=== PATIENT | male | born 1935 | race Caucasian/White ===

== ENCOUNTER 2016-12-25 09:45 | Inpatient (IN) | payer MEDICARE ==
[~2016-12-25] VITALS: Ht 175.3 cm; Wt 91.0 kg
[2016-12-25] MEDS ORDERED: PRAV80TA2 PO (10:52)
[2016-12-25] MEDS ORDERED: ACET-703 PO (10:52)
[2016-12-25] MEDS ORDERED: LEVO125T4 PO (10:52)
[2016-12-25] MEDS ORDERED: POTA-243 PO (10:52)
[2016-12-25] MEDS ORDERED: FLUT50SP EACH NARE (10:52)
[2016-12-25] MEDS ORDERED: CLON0.5T PO (10:52)
[2016-12-25] MEDS ORDERED: ISOS60TA PO (10:52)
[2016-12-25] MEDS ORDERED: XARE20TA PO (10:52)
[2016-12-25] MEDS ORDERED: CARV3.12 PO (10:52)
[2016-12-25] MEDS ORDERED: SERT-132 PO (10:52)
[2016-12-25] MEDS ORDERED: FURO1TAB62 PO (10:52)
--- NOTE | 2017-01-07 07:28 | MH ---
cc: BRIEN QUINTEROS DATE OF ADMISSION: 01/07/2017 ADMISSION DIAGNOSIS Lumbar spinal stenosis with instability. HISTORY This is an 81-year-old male with significant back, hip and leg pain. Investigative studies show evidence of lumbar spinal stenosis at L3-4 and L4-5. The patient has diskogenic back pain as well. There is evidence of a extruded disc at the L3-4 level. This patient is almost unable to get out of bed due to severe back and leg pain with weakness. His indicates he is in bed for 18- 20 hours per day. Despite conservative care the patient is painful and symptomatic. The patient had extensive conservative care that goes back over a year. He now presents for surgical treatment. PAST MEDICAL HISTORY, SOCIAL HISTORY, FAMILY HISTORY, REVIEW OF SYSTEMS See attached notes. PHYSICAL EXAMINATION GENERAL: An 81-year-old male in moderate distress with his back, hip and legs. HEENT: Normocephalic, atraumatic. Pupils equal, round, reactive to light and accommodation. Extraocular motions intact. NECK: Supple. CHEST: Clear. HEART: Regular rate and rhythm. ABDOMEN: Soft, nontender with normoactive bowel sounds. MUSCULOSKELETAL EXAMINATION: Thoracolumbar spine - restricted motion, pain with motion. Moderate spasm. Pelvis is level. Lower extremity straight leg raising is positive on the left, mildly positive on the right. Motor examination shows weakness to the left anterior tibialis and extensor hallucis longus. IMPRESSION 1. Lumbar spinal stenosis L3-4 and L4-5. 2. Herniated disc L3-4, extruded 3. Diskogenic low back pain. 4. Lumbar instability. 5. Left greater than right lumbosacral radiculopathy. PLAN Lumbar laminectomy bilateral, from the left L3-4 and L4-5, lateral recess decompression, subtotal facet resection, posterior spinal fusion L3-4 with posterolateral interbody fusion L3-4 and instrumentation L3-4. CONSENT There are risks with surgery including infection, bleeding, loss of motion, continued pain, need for further surgery, neurologic and vascular injury. The patient understands these issues and wishes to press on with surgery as outlined above. MD PRATIK Santa/SYDNIE /10:47 PM /7:20 AM MTDLeo
[2017-01-07] MEDS ORDERED: SODIUM CHLOR 0.9% 250 ML INJ 250 ML ONE (08:01)
[2017-01-07] MEDS ORDERED: VANCOMYCIN HCL 1000 MG VIAL ONE (08:01)
[2017-01-07 08:08] VITALS: BP 119/87; PULSE 84; RESP 20; TEMP 97.6; O2SAT 94
[2017-01-07] MEDS ORDERED: INSULIN HUMAN REGULAR 1,000 UNITS/10 ML VIAL SQ PRN (08:30)
[2017-01-07] MEDS ORDERED: POVIDONE IODINE 7.5% SCRUB 118 ML BOTTLE TOP SCH (08:30)
[2017-01-07] MEDS ORDERED: METOPROLOL TARTRATE 25 MG TAB PO PRN (08:30)
[2017-01-07] MEDS ORDERED: ceFAZolin 2 GM PREMIX 50 ML IV SCH (08:30)
[2017-01-07] MEDS ORDERED: LACTATED RINGER'S 1000 ML IV SCH (08:30)
[2017-01-07] MEDS ORDERED: SODIUM CHLORID 0.9% 500 ML IV SCH (08:30)
[2017-01-07] MEDS ORDERED: VANCOMYCIN 1000 MG/NS 250 ML (for <70 kg) IV SCH ×2 (08:30)
[2017-01-07] MEDS ORDERED: GENTAMICIN SULFATE 80 MG/2 ML VIAL ONE (08:41)
[2017-01-07 08:57] LABS: INTERNATIONAL NORMALIZED RATIO 1.1 RATIO; PROTHROMBIN TIME - PATIENT 12.1 SEC (9.8-11.6)
[2017-01-07] MEDS ORDERED: GELFOAM SIZE 100 ONE (08:59)
[2017-01-07] MEDS ORDERED: BUPIVACAINE/EPINEPHRINE 0.25% PF 30 ML VIAL ONE (08:59)
[2017-01-07] MEDS ORDERED: HYDROmorphone HCL PF 2 MG/ML VIAL ONE (10:44)
[2017-01-07] MEDS ORDERED: ACETAMINOPHEN 1000 MG/100 ML VIAL IV ONE (10:45)
[2017-01-07] MEDS ORDERED: ePHEDrine/NS 25 MG/5 ML SYR IV ONE (11:50)
[2017-01-07] MEDS ORDERED: LACTATED RINGER'S 1000 ML INJ 1,000 ML IV ONE (11:50)
[2017-01-07] MEDS ORDERED: ONDANSETRON HCL 4 MG/2 ML VIAL IV PUSH ONE (11:50)
[2017-01-07] MEDS ORDERED: PHENYLEPH/NS 1000 MCG/10 ML SYR IV ONE (11:50)
[2017-01-07] MEDS ORDERED: NEOSTIGMINE 3 MG/3 ML SYR IV ONE (11:50)
[2017-01-07] MEDS ORDERED: NEOSTIGMINE METHYLSULFATE 10 MG/10 ML VIAL IV PUSH ONE (11:50)
[2017-01-07] MEDS ORDERED: NORMOSOL R INJ 1,000 ML IV ONE (11:50)
[2017-01-07] MEDS ORDERED: PROPOFOL 200 MG/20 ML AMP IV ONE (11:50)
[2017-01-07] MEDS ORDERED: MISC-163 (12:41)
[2017-01-07] MEDS ORDERED: WALKER WHEELS/F1 MIS (12:43)
[2017-01-07] MEDS ORDERED: LACTATED RINGER'S 1000 ML INJ 1,000 ML IV SCH (13:41)
[2017-01-07] MEDS ORDERED: MORPHINE SULFATE 30 MG/30 ML PCA IV SCH (13:45)
[2017-01-07] MEDS ORDERED: FLUTICASONE PROPIONATE 50 MCG/ACT 16 GM NASAL SPRAY EACH NARE PRN (13:45)
[2017-01-07] MEDS ORDERED: ONDANSETRON HCL 4 MG/2 ML VIAL IV PRN (13:45)
[2017-01-07] MEDS ORDERED: SOD PHOSPHATE/SOD BIPHOSPHATE (ADULT) ENEMA 133ML PR PRN (13:45)
[2017-01-07] MEDS ORDERED: NALOXONE HCL 0.4 MG/ML AMP IV PRN (13:45)
[2017-01-07] MEDS ORDERED: ALUMINUM/MAGNESIUM/SIMETH 30 ML CUP PO PRN (13:45)
[2017-01-07] MEDS ORDERED: ACETAMINOPHEN/HYDROcodone 325 MG/7.5 MG TAB PO PRN (13:45)
[2017-01-07] MEDS ORDERED: MORPHINE SULFATE 8 MG/ML INJ IV PUSH PRN (13:45)
[2017-01-07] MEDS ORDERED: SODIUM CHLORIDE 0.9% FLUSH 5 ML FLUSH IVF PRN (13:45)
[2017-01-07] MEDS ORDERED: BISACODYL 10 MG SUPP PR PRN (13:45)
[2017-01-07] MEDS ORDERED: Post-op Orders (for Pharmacy) MISC XX ONE (13:45)
[2017-01-07] MEDS ORDERED: XARE10TA PO (13:47)
[2017-01-07] MEDS ORDERED: HYDR-3288 PO (13:47)
[2017-01-07] MEDS ORDERED: PCA - TOTAL MG MORPHINE DELIVERED PER SHIFT SCH (14:00)
[2017-01-07] MEDS ORDERED: MORPHINE SULFATE 30 MG/30 ML PCA ONE (14:14)
[2017-01-07 14:21] VITALS: O2SAT 95
[2017-01-07] MEDS ORDERED: fentaNYL CITRATE 250 MCG/5 ML AMP ONE (14:30)
--- NOTE | 2017-01-07 14:56 | RADRPT ---
EXAM DATE/TIME: 01/07/2017 11:17 [facility] COMPARISON: No previous studies available for comparison. INDICATIONS : L3-4 fusion, L4-5 laminectomy. MEDICAL HISTORY : None. SURGICAL HISTORY : None. ENCOUNTER: Initial ACUITY: 1 day PAIN SCORE: 10/10 LOCATION: Lumbar spine. CONCLUSION: Lateral fluoroscopic images during placement of plate and screws with intervertebral disc device at w hat appears to be L3-4. Luis Vicente MD on January 07, 2017 at 14:53 Board Certified Radiologist. This report was verified electronically.
[2017-01-07] MEDS ORDERED: *ONDANSETRON 4 MG VIAL PERIprocedural Use ONLY ONE (19:05)
[2017-01-07] MEDS ORDERED: *LABETALOL HCL 100 MG/20 ML VIAL PERIprocedural Use ONLY ONE (19:09)
[2017-01-07] MEDS ORDERED: METOPROLOL TARTRATE 5 MG/5 ML VIAL ONE (19:18)
[2017-01-07] MEDS ORDERED: NITROGLYCERIN 0.4 MG SL 25 TABS/BTL SL ONE (19:35)
[2017-01-07 20:00] VITALS: O2SAT 91
[2017-01-07] MEDS ORDERED: NITROGLYCERIN 0.4 MG SL 25 TABS/BTL SL PRN (20:45)
[2017-01-07] MEDS ORDERED: ZOLPIDEM TARTRATE 5 MG TAB PO PRN (21:00)
[2017-01-07] MEDS ORDERED: FUROSEMIDE 20 MG TAB PO SCH (21:00)
--- NOTE | 2017-01-07 21:02 | RADRPT ---
EXAM DATE/TIME: 01/07/2017 20:39 [facility] COMPARISON: No previous studies available for comparison. INDICATIONS : Post OP. MEDICAL HISTORY : None. SURGICAL HISTORY : Pacemaker. ENCOUNTER: Subsequent ACUITY: 1 day PAIN SCORE: 0/10 LOCATION: Bilateral chest FINDINGS: No pneumothorax seen. Patient has a left subclavian transvenous cardiac pacer with 2 leads, one in th e right atrium and one at the right ventricular apex. There is mild cardiomegaly and mild, diffuse basilar interstitial prominence of the lungs. No dense o r confluent consolidation. No pleural effusion or pneumothorax. Patient has had previous median sternotomy. CONCLUSION: Mild failure. Cardiac pacer as above. No pneumothorax or other acute complication demonstrated. Aldo Campuzano MD on January 07, 2017 at 20:59 Board Certified Radiologist. This report was verified electronically.
[2017-01-07] MEDS ORDERED: FUROSEMIDE 20 MG/2 ML VIAL ONE (21:52)
--- NOTE | 2017-01-07 21:54 | PD.CONS ---
HPI Service [facility] Consult Requested By Dr Salcido Reason for Consult Chest pain Primary Care Physician Aldo Rincon MD Diagnoses: History of Present Illness History from patient, patient's nurse at the bedside, and review of medical records. I also did speak to Dr. Salcido of orthopedics on this patient as this was a stat consult. Medical team was consulted on this patient because patient was complaining of chest pain postoperatively. Patient underwent bilateral laminectomy from L3-L4, left laminectomy L4-L5, lateral recess decompression, subtotal facets resection, posterior spinal fusion L3-L4, PLIF L3-L4, posterior segmental spinal instrumentation L3-L4 today for a 2016. Postoperatively around 7 PM, patient stated that he had his dinner. He stated after the dinner, he just was not feeling well and started having nausea. This was then followed by chest pain which he described as achy, dull, midsternal with radiation to his back. Was also having associated nausea. Also reports of shortness of breath during that time. His heart rate was also tachycardic around 130s. Because of his complaints, patient was given nitroglycerin in PACU. He reports his pain level decreased from a 4-2 at that time. Patient reports that these achiness is very similar to the symptoms that he had when he had previous heart issues. Upon further questioning, patient actually stated that he has been having these chest tightness for the past few days to a week. He states that he was also having shortness of breath with minimal exertion. He denies any melena/hematochezia/hematemesis/hematuria. Denies fever. Denies burning when he urinates or pain on urination. Denies diarrhea. Denies any recent syncope or falls or dizziness. Of note is that patient received about 2500 cc of fluids in the OR and also postoperative combined. He lost about 300 cc of blood in the OR. Patient reported a prior history of CADstatus post CABG in 2009. He stated that he has had coronary artery stents a total of 15 stents between 2009 to now. His last stent was placed around April 2015 or 2015. He also reports of history of CHF. He does not remember his EF. However he does not have AICD on review of his chest x-ray. He does have a pacemaker. Reports of history of atrial fibrillation. Review of Systems Except as stated in HPI: all other systems reviewed are Neg Past Family Social History Allergies: Coded Allergies: Sulfa (Verified Allergy, Unknown, 01/07/17) Past Medical History Hypertension CADstatus post CABG 2010quadruple. Had cardiac stents a total of 15 stents between 2009 to now. Last stent was placed around April 2016 15 or 2016. CHF Hyperlipidemia Atrial fibrillation Chronic anticoagulation on Xarelto Left carotid artery stenosisstatus post left CEA COPDon home nocturnal oxygen History of renal cyst versus massreports that he was supposed to have surgery for this but later was called by his surgeon that he no longer requires surgery for the treatment. This was about 3 years ago. Hypothyroidism Prostate cancerstatus post radiation seed placement Osteoarthritis Past Surgical History CABG Coronary angiogram and stenting Cataract surgery Prostate radiation seed placement Left carotid artery stenosisstatus post left CEA Laminectomy today Reported Medications Patient's medications as listed in EMRreviewed Family History Reports his sister from some kind of cancer at the age of 5656 years old. His brother September 2016. But did have multiple medical issues and he is not sure which one caused . Social History Used to smoke cigarettes heavily. Stated he quit 4 years ago. States he drinks about 2 glasses of wine a day. Denies any drug abuse. Lives with his . Still driving. Physical Exam Vital Signs Vital Signs Date Time Temp Pulse Resp B/P Pulse Ox O2 Delivery O2 Flow Rate FiO2 01/07/17 20:15 114 22 121/89 91 Nasal Cannula 4 01/07/17 20:00 111 22 122/89 91 Nasal Cannula 4 01/07/17 19:45 109 22 131/84 91 Nasal Cannula 4 01/07/17 19:30 109 22 118/84 91 Nasal Cannula 4 01/07/17 19:15 98.1 110 22 126/89 92 Nasal Cannula 4 01/07/17 19:00 110 22 154/100 95 Nasal Cannula 4 01/07/17 18:30 100 22 140/102 95 Nasal Cannula 4 01/07/17 17:30 92 22 141/96 95 Nasal Cannula 4 01/07/17 16:30 92 22 135/82 95 Nasal Cannula 4 01/07/17 16:15 92 22 148/86 95 Nasal Cannula 4 01/07/17 16:00 92 22 136/85 91 Nasal Cannula 4 01/07/17 15:45 92 22 124/75 93 Nasal Cannula 4 01/07/17 15:30 94 22 145/82 94 Nasal Cannula 4 01/07/17 15:15 94 22 152/83 94 Nasal Cannula 4 01/07/17 15:00 96 22 135/89 96 Nasal Cannula 4 01/07/17 14:52 20 01/07/17 14:45 93 22 148/70 95 Nasal Cannula 4 01/07/17 14:30 87 22 158/94 96 Nasal Cannula 4 01/07/17 14:21 98.5 66 22 149/99 95 Simple Mask 6 01/07/17 08:08 97.6 84 20 119/87 94 Physical Exam GENERAL: This is a well-nourished, well-developed patient, in no apparent distress. SKIN: No rashes, ecchymoses or lesions. Cool and dry. HEAD: Atraumatic. Normocephalic. No temporal or scalp tenderness. EYES: No scleral icterus. No injection or drainage. ENT: Airway patent. Dry oral mucosa. Left CEA scar NECK: Trachea midline. No JVD CARDIOVASCULAR: Regular rate and rhythm without murmurs, gallops, or rubs. RESPIRATORY: Bilateral rales up to mid lungs. Extremities: No calf asymmetry, No calf tenderness. NEUROLOGICAL: Awake and alert. Motor and sensory grossly within normal limits . Somewhat limited exam since patient is not able to move too much postop.. Normal speech. Laboratory Laboratory Tests Test 01/07/17 01/07/17 01/07/17 01/07/17 07:58 08:40 11:54 12:05 Blood Type O POSITIVE O POSITIVE Antibody Screen NEGATIVE Blood Bank Comment Prothrombin Time 12.1 Prothromb Time International 1.1 Ratio Crossmatch Leukocyte-Reduced Red Blood Cells Imaging rad Last 48 hours Impressions Lumbar Spine X-Ray 01/07/17 0000 Signed Impressions: Service Date/Time: Saturday, January 07, 2017 11:17 - CONCLUSION: Lateral fluoroscopic images during placement of plate and screws with intervertebral disc device at what appears to be L3-4. Luis Vicente MD Chest X-Ray 01/07/17 0000 Signed Impressions: Service Date/Time: Saturday, January 07, 2017 20:39 - CONCLUSION: Mild failure. Cardiac pacer as above. No pneumothorax or other acute complication demonstrated. Aldo Campuzano MD Assessment and Plan Problem List: (1) Fluid overload ICD Code: E87.70 Status: Acute (2) Chest pain ICD Code: R07.9 Status: Acute (3) Tachycardia ICD Code: R00.0 Status: Acute Assessment and Plan Impression: Fluid overloadacute on chronic heart failure Chest painwill rule out ACS. Most likely this is secondary to fluid overload. However patient is stating that he did have these chest pains and shortness of breath about a week even prior to his surgery. This would need to rule out new coronary lesions. Tachycardiacurrent heart rate is around 116 in A. fib patient. Multiple etiologies including dyspnea/fluid overload/postop pain. No fever or obvious blood loss. He lost about 300 cc of blood in the OR. Will need to trend hemoglobin hematocrit. Xarelto was stopped about 6 days ago. Hypertension CADstatus post CABG 2009quadruple. Had cardiac stents a total of 15 stents between 2009 to now. Last stent was placed around April 2016 15 or 2016. CHF Hyperlipidemia Atrial fibrillation Chronic anticoagulation on Xarelto Left carotid artery stenosisstatus post left CEA COPDon home nocturnal oxygen History of renal cyst versus massreports that he was supposed to have surgery for this but later was called by his surgeon that he no longer requires surgery for the treatment. This was about 3 years ago. Hypothyroidism Prostate cancerstatus post radiation seed placement Osteoarthritis Plan: Stat chest x-ray was ordered by me. Personally reviewed. Does show bilateral pulmonary edema. Stop IV fluids. Lasix 40 mg IV 1 dose now. Continue Lasix at 40 mg IV every 12 hoursfor the next 24 hours or so. We'll need to switch this based on clinical response. Serial cardiac enzymes and EKGs. Echocardiogram in a.m. Hemoglobin hematocrit CBC now. BMP now. May need potassium supplements with diuresis. Patient reports he takes potassium at home. Will consider transfusing blood if patient's hemoglobin is less than 10 as he is having active chest pain, in a patient with significant coronary artery disease and CABG. Patient's home medications have been resumed by primary orthopedics team. This was reviewed. For now I would continue as ordered. Will adjust based on his vitals if needed. DVT prophylaxiswith SCD. To resume Xarelto postoperatively at the discretion of orthopedics team. Discussed Condition With Patient, covering orthopedic surgeon, patient's nurse in PACU Jonathan Redding MD Jan 07, 2017 21:54
[2017-01-07] MEDS ORDERED: FUROSEMIDE 40 MG/4 ML VIAL IV PUSH ONE (22:00)
[2017-01-08] VITALS (12 sets, daily range): BP systolic 101–117; BP diastolic 60–79; PULSE 84–93; RESP 15–24; TEMP 98.1–98.8; O2SAT 90–98
[2017-01-08 00:24] LABS: BICARBONATE 23.5 MEQ/L (21.0-32.0); POTASSIUM 4.9 MEQ/L (3.5-5.1)
[2017-01-08 04:19] LABS: AUTOMATED NEUTROPHIL # 10.2 TH/MM3 (1.8-7.7); BASOPHIL % 0.1 % (0.0-2.0); HEMATOCRIT 36.9 % (39.0-51.0); HEMO FLAGS DIFF FINAL; LYMPH % 2.8 % (9.0-44.0); LYMPHOCYTE # 0.3 TH/MM3 (1.0-4.8); MEAN CELL VOLUME 93.4 FL (80.0-100.0); MEAN CORPUSCULAR HEMOGLOBIN 30.3 PG (27.0-34.0); MEAN CORPUSCULAR HGB CONC 32.5 % (32.0-36.0); MONO % 10.9 % (0.0-8.0); NEUT % 86.2 % (16.0-70.0); PLATELET COUNT 180 TH/MM3 (150-450); RED BLOOD COUNT 3.95 MIL/MM3 (4.50-5.90); RED CELL DISTRIBUTION WIDTH 14.7 % (11.6-17.2); WHITE BLOOD COUNT 11.8 TH/MM3 (4.0-11.0)
[2017-01-08 05:06] LABS: CKMB 41.5 NG/ML (0.5-3.6)
[2017-01-08] MEDS ORDERED: HEPARIN-D5W INJ 250 ML IV SCH (05:30)
[2017-01-08 06:13] LABS: REVIEW FLAG FINAL
--- NOTE | 2017-01-08 07:34 | MP ---
cc: BRIEN QUINTEROS DATE OF SURGERY: 01/07/2017 PREOPERATIVE DIAGNOSIS 1. Herniated nucleus pulposus, L3-4, central, left, sequestered. 2. Lumbar spinal stenosis L3-4 and L4-5. 3. Lumbar instability L3-4. 4. Discogenic low back pain. 5. Left greater than right lumbosacral radiculopathy. POSTOPERATIVE DIAGNOSIS 1. Herniated nucleus pulposus, L3-4, central, left, sequestered. 2. Lumbar spinal stenosis L3-4 and L4-5. 3. Lumbar instability L3-4. 4. Discogenic low back pain. 5. Left greater than right lumbosacral radiculopathy. PROCEDURE 1. Partial bilateral lumbar laminectomy from the left L4, L5, lateral recess decompression, resection herniated nucleus pulposus, subtotal facet resection L3-4. 2. Lumbar laminectomy from the left L4, L5 with lateral recess decompression. 3. Posterior spinal fusion L3-4. 4. Posterolateral interbody fusion L3-4. 5. Placement of interbody cage L3-4 from the left. 6. Posterior spinal segmental instrumentation. 7. Bone grafting of the lumbar spine. SURGEON Brien Quinteros [employer] INSPECTOR [employer] REPAIRER Audra Gomez PA-C ANESTHESIA General. ESTIMATED BLOOD LOSS 300 cc. INDICATION This patient is an 81-year-old male who is debilitated. He can barely get out of bed and is spending 18+ hours a day in bed because of severe back pain, radiating leg pain and weakness. He has been treated conservatively for discogenic low back for a long time. The patient has had progressive weakness into his legs. Despite extensive conservative care for over six months he has failed and now presents for surgical treatment. DETAILS OF PROCEDURE The patient was brought to the operating room and anesthetized in the supine position. He was rolled to a prone position on a Shiva frame on the Chace table. All pressure points were protected and the back was scrubbed with alcohol followed by Hibiclens followed by ChloraPrep and draped sterilely. Antibiotics were given within a one hour time window and a timeout was done. A left paramedian incision was made. We started first at the L4-5 level. An off midline fascial incision was made. A series of dilating probes were placed down to the interlaminar space at that level. Hemostasis was controlled with bipolar cautery. A high-speed bur was used to remove the lamina starting from left of midline extending across midline. A high-grade stenosis was found. The ligament was taken up and the lateral recess was taken up removing approximately 30% of the medial aspect of the facette joint involving the superior articular facet of L5 and the intrarticular facet of L4. Crossing the L5 nerve root was completely decompressed. A blunt probe could be placed along that region. There was no complication and no leak of cerebrospinal fluid. The wound was irrigated copiously. The fascia was closed with interrupted #1 Vicryl suture. A separate fascial incision was made over the L3-4 level. An extended exposure was accomplished allowing access to that region. We extended across midline and a bilateral laminectomy from the left was accomplished. We found a high-grade stenosis and a large sequestered disc herniation below the disc space. There was a disruption of the annulus from its attachment to L4 and multiple large fragments of disc that were seen below the disc space creating almost a cauda equina syndrome and significant depression, especially the crossing left L4 and even the left L5 nerve root. This was resected and completely freed up. This level was very unstable. A subtotal facet resection was accomplished allowing exposure and decompression also at the exiting L3 nerve root. Because of decompression of that nerve in the foramen, this level became even more unstable so a fusion was felt to be medically necessary. A total discectomy was accomplished. On the back table a combination of autogenous bone graft was mixed with demineralized bone matrix and stem cells. They were injected into the disc space at the L3-4 level. Room was then made for the cage at that level and a StaXx taper 25 mm cage was impacted and elevated to 10 mm. Overall fill was excellent. The back side was filled with additional bone graft. The retractor was reversed. We were able to gain access over the facet joints. Percutaneously we then gained entrance in the pedicle of L3 and L4 on that side. A guidewire was placed down at both pedicles. This was enlarged and proper length cannulated screws with extended tabs were utilized. These were advanced across the wire. Each screw was checked with electric current and there were no abnormal potentials in either lower extremity. Bone graft was placed into the lateral gutters along the transverse process from L3-L4 followed by placement of a 35 mm contoured ronald and then tightened according to the radiologic tech's recommendation. The wound was irrigated copiously. The fascia was closed with interrupted #1 Vicryl suture, subcutaneous tissue with 2-0 Vicryl suture and skin with running intradermal 3-0 Vicryl followed by Benzoin and Steri-Strips. Attention was directed to the right side. Two percutaneous screws were placed on the right side using a sequence of an incision, a bur down to the pedicle followed by placement of an awl and a proper sized wire. This was tapped and then 50 mm screws were advanced across the wire and into proper position percutaneously. A percutaneous ronald was used to attach the device. These were then tightened according to the radiologic tech's recommendation. The wound was irrigated copiously. The subcutaneous tissue was approximated with 2-0 Vicryl suture, skin with running intradermal 3-0 Vicryl followed by Benzoin and Steri-Strips. The sponge counts, needle counts and instrument counts were all correct. The patient tolerated the procedure well and was taken to the recovery room in satisfactory condition. MD PRATIK Santa/JASKARAN /7:22 PM /7:06 AM PINKY
--- NOTE | 2017-01-08 07:54 | PD.ORT.PN ---
Subjective Subjective Remarks Episode of chest pain following surgery so pt was placed on telemetry with medical and cardiology consult. Apparently had elevated troponin levels this am but pt has a strong cardiac and pulmonary history. Chest pain is a '2 maybe 3' this morning. Back pain is 'still painful but I knew that was coming'. He denies any new radiating leg pain, abd pain, new fever or signfiicant shortness of breath. Objective Vitals Vital Signs Date Time Temp Pulse Resp B/P Pulse Ox O2 Delivery O2 Flow Rate FiO2 01/08/17 06:00 86 01/08/17 06:00 98.1 86 19 109/79 94 01/08/17 04:00 84 01/08/17 04:00 98.1 84 15 101/60 93 01/08/17 02:00 86 01/08/17 02:00 98.1 86 16 106/60 94 01/08/17 00:00 98.1 90 17 114/ 98 01/07/17 22:39 98.1 114 22 124/90 96 Nasal Cannula 4 01/07/17 22:30 114 22 124/90 96 Nasal Cannula 4 01/07/17 21:30 114 22 126/90 96 Nasal Cannula 4 01/07/17 20:30 112 22 120/86 91 Nasal Cannula 4 01/07/17 20:15 114 22 121/89 91 Nasal Cannula 4 01/07/17 20:00 111 22 122/89 91 Nasal Cannula 4 01/07/17 19:45 109 22 131/84 91 Nasal Cannula 4 01/07/17 19:30 109 22 118/84 91 Nasal Cannula 4 01/07/17 19:15 98.1 110 22 126/89 92 Nasal Cannula 4 01/07/17 19:00 110 22 154/100 95 Nasal Cannula 4 01/07/17 18:30 100 22 140/102 95 Nasal Cannula 4 01/07/17 17:30 92 22 141/96 95 Nasal Cannula 4 01/07/17 16:30 92 22 135/82 95 Nasal Cannula 4 01/07/17 16:15 92 22 148/86 95 Nasal Cannula 4 01/07/17 16:00 92 22 136/85 91 Nasal Cannula 4 01/07/17 15:45 92 22 124/75 93 Nasal Cannula 4 01/07/17 15:30 94 22 145/82 94 Nasal Cannula 4 01/07/17 15:15 94 22 152/83 94 Nasal Cannula 4 01/07/17 15:00 96 22 135/89 96 Nasal Cannula 4 01/07/17 14:52 20 01/07/17 14:45 93 22 148/70 95 Nasal Cannula 4 01/07/17 14:30 87 22 158/94 96 Nasal Cannula 4 01/07/17 14:21 98.5 66 22 149/99 95 Simple Mask 6 01/07/17 08:08 97.6 84 20 119/87 94 I/O 01/07/17 01/07/17 01/07/17 01/08/17 01/08/17 01/08/17 07:00 15:00 23:00 07:00 15:00 23:00 Intake Total 2200 ml 1378 ml 703 ml Output Total 550 ml 395 ml 900 ml Balance 1650 ml 983 ml -197 ml Intake Oral 500 ml IV Total 1018 ml 203 ml Other 2200 ml 360 ml Output Urine Total 250 ml 395 ml 900 ml Estimated Blood Loss 300 ml Result Diagram: 01/08/17 0557 01/07/172124 Other Results Laboratory Tests Test 01/07/17 08:40 Prothrombin Time 12.1 SEC (9.8-11.6) Prothromb Time International 1.1 RATIO Ratio Objective Remarks Sitting up in bed, RN at bedside NAD VSS L/S Dressing c/d/i, mild drainage, mild warmth, no erythema +motor at and ehl 5/5, +sens, +nvi calves supple, neg homans Assessment & Plan Ortho Post Op Day #: 1 Problem List: Assessment and Plan pod#1 s/p Lami L34, L45, PSF L34 D/C [employer] - causing itching. Change to po pain meds. D/C borja cath this morning. Begin dry dressing changes pod#2 then daily. PT - WBAT w walker. Out of bed w lumbar brace. Medical is considering anticoagulation with heparin due to elevation in troponin. I would very much like to avoid significant anticoagulation for 36- 48 hours postop to avoid significant bleeding at surgical site that has high risk for causing closed space compression and nerve injury. Medical / Cardiology monitoring. D/C planning TBD based on medical stability. Likely friday or friday if stable. DME written. Milka Vora Jan 08, 2017 07:54
[2017-01-08] MEDS: ACETAMINOPHEN/HYDROcodone 325 MG/7.5 MG TAB PO PRN (08:39)
[2017-01-08] MEDS: POTASSIUM CL 40 MEQ/30 ML LIQ UDC PO SCH ×2 (08:39→21:11)
[2017-01-08] MEDS: MAGNESIUM HYDROXIDE SUSP 30 ML CUP PO SCH ×2 (08:40→21:00)
[2017-01-08] MEDS: CARVEDILOL 3.125 MG TAB PO SCH ×2 (08:40→21:13)
--- NOTE | 2017-01-08 08:45 | PD.CONS ---
HPI Service CV Consult Requested By Reason for Consult NSTEMI Primary Care Physician Aldo Rincon MD History of Present Illness Here with CAD s/p CABG 4 vessels 2010 multiple stents after that lastly in 2015 , h/o CHF, hyperlipidemia, a-fib, and PPM for chest pain. Yesterday he underwent lumbar laminectomy. Then he developed retrosternal chest pain and troponin went to 6. He continues to have retrosternal chest pain and the surgeon does not want any anticoagulants give at least until tomorrow. He also c /o shortness of breath, but denies palpitations (Jorge Cortés) Review of Systems Consitutional: DENIES: Fatigue, Fever, Chills, Weight gain, Weight loss Eyes: DENIES: Amaurosis Fug[place], Change in vision HEENT: DENIES: Lightheadedness, Change in hearing Respiratory: DENIES: See HPI, Cough, Snoring, Shortness of breath, Wheezing, Sputum production Cardiovascular: COMPLAINS OF: See HPI Gastrointestinal: DENIES: Nausea, Vomiting, Change in bowel habits, Reflux, Bloody stools, Melena Genitourinary: DENIES: Urinary incontinence, Difficulty voiding Integumentary: DENIES: Rash Neurologic: DENIES: Tingling or numbness, Memory problems, Poor Balance, Stroke symptoms Musculoskeletal: DENIES: Joint pain, Muscle pain, Limited range of motion, Back pain Psychiatric: DENIES: Anxiety, Depression, Sleep disturbances Hematologic: DENIES: Bruising tendencies, Bleeding tendencies Endocrine: DENIES: Weight gain, Weight loss, Thyroid disease (Jorge Cortés ) Past Family Social History Allergies: Coded Allergies: Sulfa (Verified Allergy, Unknown, 01/07/17) Past Medical History see HPI Hypertension Chronic anticoagulation on Xarelto Left carotid artery stenosisstatus post left CEA COPDon home nocturnal oxygen History of renal cyst versus massreports that he was supposed to have surgery for this but later was called by his surgeon that he no longer requires surgery for the treatment. This was about 3 years ago. Hypothyroidism Prostate cancerstatus post radiation seed placement Osteoarthritis Past Surgical History see HPI Cataract surgery Prostate radiation seed placement Left carotid artery stenosisstatus post left CEA Laminectomy today Reported Medications Reported Meds & Active Scripts Active Xarelto (Rivaroxaban) 10 Mg Tab 10 Mg PO DAILY 5 Days after 5 days return to preop dose [place] (Hydrocodone-Acetaminophen) 7.5-325 mg Tab 1 Tab PO Q4H PRN Reported Tylenol Extra Strength (Acetaminophen) 500 Mg Tab 1,000 Mg PO DAILY Fluticasone Nasal [place] 50 Mcg/Act Naspr 50 Mcg EACH NARE BID PRN 50 mcg/spray Clonazepam 0.5 Mg Tab 0.5 Mg PO HS Levothyroxine (Levothyroxine Sodium) 125 Mcg Tab 125 Mcg PO HS Sertraline (Sertraline HCl) 50 Mg Tab 50 Mg PO HS Pravastatin 80 Mg Tab 80 Mg PO HS Carvedilol 3.125 Mg Tab 3.125 Mg PO BID Xarelto (Rivaroxaban) 20 Mg Tab 20 Mg PO DAILY Isosorbide Mononitrate ER (Isosorbide Mononitrate) 60 Mg Tab 60 Mg PO DAILY Klor-Con 10 (Potassium Chloride) 10 Meq Tab 5 Meq PO BID PATIENT TAKES 1/2 TABLET IN AM AND 1/2 TABLET IN PM Lasix (Furosemide) 20 Mg Tab 10 Mg PO BID PATIENT TAKES 1/2 HALF TABLET IN AM AND 1/2 TABLET IN PM Active Ordered Medications Current Medications Medications (Trade) Dose Ordered Sig/Jag Route Start Time Stop Time Status Last Admin (Betadine 7.5% Scrub) 1 applic ONCE TOP 01/07/17 08:30 01/10/17 08:29 (Coreg) 3.125 mg BID PO 01/07/17 21:00 (KlonoPIN) 0.5 mg HS PO 01/07/17 21:00 (Flonase Blu Spr) 1 spray BID PRN EACH NARE 01/07/17 13:45 (Synthroid) 125 mcg HS PO 01/07/17 21:00 (KCl 40 Meq/30 ml Liq) 5 meq BID PO 01/07/17 21:00 (Pravachol) 80 mg HS PO 01/07/17 21:00 (Zoloft) 50 mg HS PO 01/07/17 21:00 (NS Flush) 2 ml UNSCH PRN IVF 01/07/17 13:45 IV Flush 2 ml 2 ml BID IVF 01/07/17 21:00 (Ancef Inj/NS Inj) 100 ml @ 200 mls/hr Q8H IV 01/07/17 18:00 01/08/17 10:29 01/08/17 01:23 ([place] 7.5-325 Mg) 1 tab Q4H PRN PO 01/07/17 13:45 ([place] 7.5-325 Mg) 2 tab Q6H PRN PO 01/07/17 13:45 (Zofran Inj) 4 mg Q6H PRN IV 01/07/17 13:45 (Colace) 100 mg BID PO 01/08/17 21:00 (Mag-Al Plus Susp Liq) 30 ml Q6H PRN PO 01/07/17 13:45 (Ambien) 5 mg HS PRN PO 01/07/17 21:00 (Dulcolax Supp) 10 mg DAILY PRN [place] 01/07/17 13:45 (Fleets Enema (Adult)) 133 ml DAILY PRN [place] 01/07/17 13:45 (Narcan Inj) 0.4 mg UNSCH PRN IV 01/07/17 13:45 (Morphine Inj) 5 mg Q4H PRN IV PUSH 01/07/17 13:45 (Milk Of Magnesia Liq) 30 ml BID PO 01/07/17 21:00 (Nitrostat Sl) 0.4 mg Q5M PRN SL 01/07/17 20:45 Furosemide 40 mg 40 mg BID@09,18 IV PUSH 01/08/17 09:00 (Heparin-D5W Inj) 250 ml @ 0 mls/hr TITRATE IV 01/08/17 05:30 Family History noncontributory Social History Used to smoke cigarettes heavily. Stated he quit 4 years ago. States he drinks about 2 glasses of wine a day. Denies any drug abuse. (Jorge Cortés) Physical Exam Vital Signs Vital Signs Date Time Temp Pulse Resp B/P Pulse Ox O2 Delivery O2 Flow Rate FiO2 01/08/17 06:00 86 01/08/17 06:00 98.1 86 19 109/79 94 01/08/17 04:00 84 01/08/17 04:00 98.1 84 15 101/60 93 01/08/17 02:00 86 01/08/17 02:00 98.1 86 16 106/60 94 01/08/17 00:00 98.1 90 17 114/ 98 01/07/17 22:39 98.1 114 22 124/90 96 Nasal Cannula 4 01/07/17 22:30 114 22 124/90 96 Nasal Cannula 4 01/07/17 21:30 114 22 126/90 96 Nasal Cannula 4 01/07/17 20:30 112 22 120/86 91 Nasal Cannula 4 01/07/17 20:15 114 22 121/89 91 Nasal Cannula 4 01/07/17 20:00 111 22 122/89 91 Nasal Cannula 4 01/07/17 19:45 109 22 131/84 91 Nasal Cannula 4 01/07/17 19:30 109 22 118/84 91 Nasal Cannula 4 01/07/17 19:15 98.1 110 22 126/89 92 Nasal Cannula 4 01/07/17 19:00 110 22 154/100 95 Nasal Cannula 4 01/07/17 18:30 100 22 140/102 95 Nasal Cannula 4 01/07/17 17:30 92 22 141/96 95 Nasal Cannula 4 01/07/17 16:30 92 22 135/82 95 Nasal Cannula 4 01/07/17 16:15 92 22 148/86 95 Nasal Cannula 4 01/07/17 16:00 92 22 136/85 91 Nasal Cannula 4 01/07/17 15:45 92 22 124/75 93 Nasal Cannula 4 01/07/17 15:30 94 22 145/82 94 Nasal Cannula 4 01/07/17 15:15 94 22 152/83 94 Nasal Cannula 4 01/07/17 15:00 96 22 135/89 96 Nasal Cannula 4 01/07/17 14:52 20 01/07/17 14:45 93 22 148/70 95 Nasal Cannula 4 01/07/17 14:30 87 22 158/94 96 Nasal Cannula 4 01/07/17 14:21 98.5 66 22 149/99 95 Simple Mask 6 Physical Exam GENERAL: Well-nourished, well-developed patient in no apparent distress. NECK: No JVD. No carotid bruit. CARDIOVASCULAR: Regular rate and rhythm. S1/S2 no murmur, rub, or gallop. RESPIRATORY: No accessory muscle use. Clear to auscultation. Breath sounds equal bilaterally. GASTROINTESTINAL: Abdomen soft, non-tender, nondistended. MUSCULOSKELETAL: Extremities without clubbing, cyanosis, or edema. Laboratory Laboratory Tests Test 01/07/17 01/07/17 01/07/17 01/07/17 08:40 11:54 12:05 21:25 Prothrombin Time 12.1 Prothromb Time International 1.1 Ratio Blood Type O POSITIVE Crossmatch Leukocyte-Reduced Red Blood Cells Blood Bank Comment Sodium Level 141 Potassium Level 4.9 Chloride Level 107 Carbon Dioxide Level 23.5 Anion Gap 11 Blood Urea Nitrogen 25 Creatinine 1.48 Estimat Glomerular Filtration 46 Rate Random Glucose 162 Calcium Level 8.5 Total Creatine Kinase 176 Troponin I 0.04 Test 01/08/17 01/08/17 03:45 05:57 White Blood Count 11.8 Red Blood Count 3.95 Hemoglobin 12.0 11.7 Hematocrit 36.9 36.0 Mean Corpuscular Volume 93.4 Mean Corpuscular Hemoglobin 30.3 Mean Corpuscular Hemoglobin 32.5 Concent Red Cell Distribution Width 14.7 Platelet Count 180 Mean Platelet Volume 8.5 Neutrophils (%) (Auto) 86.2 Lymphocytes (%) (Auto) 2.8 Monocytes (%) (Auto) 10.9 Eosinophils (%) (Auto) 0.0 Basophils (%) (Auto) 0.1 Neutrophils # (Auto) 10.2 Lymphocytes # (Auto) 0.3 Monocytes # (Auto) 1.3 Eosinophils # (Auto) 0.0 Basophils # (Auto) 0.0 CBC Comment DIFF FINAL Differential Comment Total Creatine Kinase 526 Creatine Kinase MB 41.5 Creatine Kinase MB % 7.9 Troponin I 6.12 B-Type Natriuretic Peptide 1071 (Jorge Cortés) Result Diagram: 01/08/1757 01/07/172124 Assessment and Plan Problem List: (1) Unstable angina (2) NSTEMI (non-ST elevated myocardial infarction) Assessment and Plan Will start nitro patch and plan for left heart cath probably on Friday. If he continues to have chest pain we will plan on starting NTG gtt. CHF - get 2D echo and go from there. Continue furosemide 40 mg IV BID and get strict I/O and daily weights His blood pressure is well controlled, no changes for now (Jorge Cortés) Assessment and Plan h/o CABG and multiple PCI. most recent 2014. I personally reviewed his cardiac cath at [facility] in 2014. LAD 100% occluded. LCx OM occluded. RCA occluded. GAYLE atretic. SVG-OM occluded. SVG- Diag 99% s /p CHICO. SVG-RCA has moderate distal graft anastomosis stenosis. mild CP. Nitropaste. no anticoagulation now given risk of fern-operative spinal bleed. 2d echo. last EF 45%. probable cath friday if cleared for anticoagulation at that point. fairly compensated cardiac gonzalez, will Lasix to PO (Isai Pizarro MD) Jorge Cortés Jan 08, 2017 08:45 Isai Pizarro MD Jan 08, 2017 08:49
[2017-01-08] MEDS ORDERED: FUROSEMIDE 40 MG/4 ML VIAL IV PUSH SCH (09:00)
[2017-01-08] MEDS ORDERED: ISOSORBIDE MONONITRATE 60 MG TAB PO SCH (09:00)
[2017-01-08] MEDS: NITROGLYCERIN 2% OINT 1 GM PACKET TOPICAL SCH ×3 (09:06→21:11)
[2017-01-08] MEDS: METOPROLOL TARTRATE 25 MG TAB PO SCH ×2 (09:07→21:12)
[2017-01-08 10:27] LABS: CKMB 72.8 NG/ML (0.5-3.6)
--- NOTE | 2017-01-08 12:51 | EC ---
Study Study Date:01/08/2017 STUDY CONCLUSIONS SUMMARY - Left ventricle: The cavity size was normal. Wall thickness was at the upper limits of normal. Systolic function was severely reduced by visual assessment. The estimated ejection fraction was in the range of 25% to 30%. Diffuse hypokinesis with regional variations. - Aortic valve: Valve area: 1.71cm^2 (Vmax). - Mitral valve: Mild regurgitation. - Left atrium: The atrium was mildly to moderately dilated. - Right atrium: The atrium was moderately dilated. - Tricuspid valve: Moderate regurgitation. - Pulmonary arteries: Systolic pressure was moderately increased. PA peak pressure: 53mm Hg (S). If LV function is below 40, please consider prescribing an ACEI or ARB or document rationale for non-use. PROCEDURE DATA STUDY STATUS: Elective. Procedure: Transthoracic echocardiography. Image quality was good. Scanning was performed from the parasternal, apical, and subcostal acoustic windows. Study completion: The patient tolerated the procedure well. Transthoracic echocardiography. M-mode, complete 2D, complete spectral Doppler, and color Doppler. Height: Height: 69in. Weight: Weight: 184.6lb. Body mass index: BMI: 27.3kg/m^2. Body surface area: BSA: 2m^2. Patient status: Inpatient. CARDIAC ANATOMY LEFT VENTRICLE: The cavity size was normal. Wall thickness was at the upper limits of normal. Systolic function was severely reduced by visual assessment. The estimated ejection fraction was in the range of 25% to 30%. Diffuse hypokinesis with regional variations. AORTIC VALVE: Probably trileaflet; normal thickness, mildly calcified leaflets. Doppler: Transvalvular velocity was within the normal range. There was no stenosis. No regurgitation. Valve area: 1.71cm^2 (Vmax). Indexed valve area: 0.86cm^2/m^2 (Vmax). AORTA: Aortic root: The aortic root was normal in size. MITRAL VALVE: Structurally normal valve. Doppler: Transvalvular velocity was within the normal range. There was no evidence for stenosis. Mild regurgitation. Peak gradient: 7mm Hg (D). LEFT ATRIUM: The atrium was mildly to moderately dilated. RIGHT VENTRICLE: The cavity size was normal. Wall thickness was normal. PULMONIC VALVE: Doppler: Transvalvular velocity was within the normal range. There was no evidence for stenosis. No regurgitation. TRICUSPID VALVE: Structurally normal valve. Doppler: Transvalvular velocity was within the normal range. Moderate regurgitation. PULMONARY ARTERY: Systolic pressure was moderately increased. RIGHT ATRIUM: The atrium was moderately dilated. PERICARDIUM: There was no pericardial effusion. SYSTEMIC VEINS: Inferior vena cava: The vessel was normal in size. Patient weight: 184.6lb _Ejection fraction:_ 65-75% _Fractional shortening:_ 32% up to 5Kg 5-11.5Kg 11.6-22.9Kg 23-45Kg 45-57Kg Aortic Root 7-13 <17 13-22 17-27 17-27 LA diam 6-13 <23 24-38 33-47 37-40 RVID 10-17 7-15 7-15 7-18 8-17 LVIDd 12-22 <32 24-38 33-47 37-40 LVPW 2-4 3-6 5-7 6-8 7-8 IVS 2-4 3-6 5-7 6-8 7-8 BASIC MEASUREMENTS ADULT NORMAL Left ventricle LV internal dimension, ED, chordal *54.9 mm 43-52 level, PLAX LV internal dimension, ES, chordal *50.5 mm 23-38 level, PLAX Fractional shortening, chordal level, *8 % >29 PLAX LV posterior wall thickness, ED 8.22 mm IVS/LVPW ratio, ED 1.06 <1.3 Volume, ED, MOD, 1-plane 83 ml Volume, ES, MOD, 1-plane 64 ml Ejection fraction, MOD, 1-plane 23 % Stroke volume, MOD, 1-plane 19 ml Volume index, ED, MOD, 1-plane 42 ml/m^2 Volume index, ES, MOD, 1-plane 32 ml/m^2 Stroke index, MOD, 1-plane 9.5 ml/m^2 Volume, ED, MOD, 2-plane 82 ml Volume, ES, MOD, 2-plane 64 ml Ejection fraction, MOD, 2-plane 22 % Stroke volume, MOD, 2-plane 18 ml Volume index, ED, MOD, 2-plane 41 ml/m^2 Volume index, ES, MOD, 2-plane 32 ml/m^2 Stroke index, MOD, 2-plane 9 ml/m^2 Ventricular septum Septal thickness, ED 8.7 mm Aortic valve Leaflet separation 18 mm 15-26 BASIC MEASUREMENTS ADULT NORMAL Aortic valve Leaflet separation 18 mm 15-26 Aorta Root diameter, ED 21 mm 20-37 Left atrium Anterior-posterior dimension, ES *46 mm 19-40 Anterior-posterior dimension index, ES *2.3 cm/m^2 <2.2 LA/aortic root ratio 2.19 DOPPLER MEASUREMENTS ADULT NORMAL Main pulmonary artery Pressure, S *53 mm Hg =30 Aortic valve Peak velocity, S 129 cm/s Valve area, Vmax 1.71 cm^2 Valve area index, Vmax 0.86 cm^2/m^2 Mitral valve Peak E-wave velocity 134 cm/s Peak A-wave velocity 71.1 cm/s Deceleration time *123 ms 150-230 Peak gradient, D 7 mm Hg Peak E/A ratio 1.9 Maximal regurgitant velocity 314 cm/s Tricuspid valve Regurgitant peak velocity 328 cm/s Peak RV-RA gradient, S 43 mm Hg Maximal regurgitant velocity 328 cm/s Systemic veins Estimated CVP 10 mm Hg Right ventricle RV pressure, S *55 mm Hg <30 Pulmonic valve Peak velocity, S 76 cm/s LEGEND: Mean values are shown as u=mean value. Asterisk (*) myers values outside specified normal range. Prepared and signed by Isai Pizarro [id number]
--- NOTE | 2017-01-08 16:58 | HHI.PR ---
Subjective Remarks Patient stated his pain diminished significantly with nitroglycerin sublingual and patch it's about 1-2 now No short of breath no lightheadedness or dizziness I discussed with the nurse the patient had 5 eats of VKumar tach, will report to cardiology Objective Vitals Vital Signs Date Time Temp Pulse Resp B/P Pulse Ox O2 Delivery O2 Flow Rate FiO2 01/08/17 16:23 94 Nasal Cannula 4.00 01/08/17 16:22 98.1 90 18 112/70 96 01/08/17 12:00 98.8 90 24 107/69 90 01/08/17 10:00 89 01/08/17 09:40 20 01/08/17 08:45 20 01/08/17 08:00 98.7 93 18 117/78 90 01/08/17 06:00 86 01/08/17 06:00 98.1 86 19 109/79 94 01/08/17 04:00 84 01/08/17 04:00 98.1 84 15 101/60 93 01/08/17 02:00 86 01/08/17 02:00 98.1 86 16 106/60 94 01/08/17 00:00 98.1 90 17 114/ 98 01/07/17 22:39 98.1 114 22 124/90 96 Nasal Cannula 4 01/07/17 22:30 114 22 124/90 96 Nasal Cannula 4 01/07/17 21:30 114 22 126/90 96 Nasal Cannula 4 01/07/17 20:30 112 22 120/86 91 Nasal Cannula 4 01/07/17 20:15 114 22 121/89 91 Nasal Cannula 4 01/07/17 20:00 91 Nasal Cannula 4.00 01/07/17 20:00 111 22 122/89 91 Nasal Cannula 4 01/07/17 19:45 109 22 131/84 91 Nasal Cannula 4 01/07/17 19:30 109 22 118/84 91 Nasal Cannula 4 01/07/17 19:15 98.1 110 22 126/89 92 Nasal Cannula 4 01/07/17 19:00 110 22 154/100 95 Nasal Cannula 4 01/07/17 18:30 100 22 140/102 95 Nasal Cannula 4 01/07/17 17:30 92 22 141/96 95 Nasal Cannula 4 I/O 2/21/17 2/21/01/07/17 01/08/17 01/08/17 01/08/17 07:00 15:00 23:00 07:00 15:00 23:00 Intake Total 2200 ml 1378 ml 703 ml Output Total 550 ml 395 ml 900 ml Balance 1650 ml 983 ml -197 ml Intake Oral 500 ml IV Total 1018 ml 203 ml Other 2200 ml 360 ml Output Urine Total 250 ml 395 ml 900 ml Estimated Blood Loss 300 ml Result Diagram: 01/08/17 0557 01/07/172124 Imaging Last Impressions Lumbar Spine X-Ray 01/07/17 0000 Signed Impressions: Service Date/Time: Saturday, January 07, 2017 11:17 - CONCLUSION: Lateral fluoroscopic images during placement of plate and screws with intervertebral disc device at what appears to be L3-4. Luis Vicente MD Chest X-Ray 01/07/17 0000 Signed Impressions: Service Date/Time: Saturday, January 07, 2017 20:39 - CONCLUSION: Mild failure. Cardiac pacer as above. No pneumothorax or other acute complication demonstrated. Aldo Campuzano MD Objective Remarks GENERAL: This is a well-nourished, well-developed patient, in no apparent distress. SKIN: No rashes, warm and dry HEAD: Atraumatic. Normocephalic. EYES: Pupils equal round and reactive. Extraocular motions intact. No scleral icterus. ENT: Nose without bleeding, or drainage, Airway patent. NECK: Trachea midline. Supple CARDIOVASCULAR: Regular rate and rhythm without murmurs, gallops, or rubs. RESPIRATORY: Fair air entry bilaterally. No wheezes, rales, or rhonchi. GASTROINTESTINAL: Abdomen soft, non-tender, nondistended. Positive bowel sounds MUSCULOSKELETAL: Extremities without clubbing, cyanosis, or edema. Pedal pulses appreciated NEUROLOGICAL: Awake and alert. Moves all extremity. Normal speech.no focal neurological deficit A/P Problem List: (1) Fluid overload ICD Code: E87.70 Status: Acute (2) Chest pain ICD Code: R07.9 Status: Acute (3) Tachycardia ICD Code: R00.0 Status: Acute Assessment and Plan -Acute Non-STEMI with significant increase in troponin 16.3 and chest pain -Patient underwent bilateral laminectomy from L3-L4, left laminectomy L4-L5, lateral recess decompression, subtotal facets resection, posterior spinal fusion L3-L4, PLIF L3-L4, posterior segmental spinal instrumentation L3-L4 today for a 2016. -Acute and chronic CHF with volume overload pulmonary edema -Hypertension -History of coronary artery disease status post CABG 2009, cardiac stenting total 15 stents last one April 2016 -Hyperlipidemia -A. fib Xarelto has been stop a week before the surgery -Left carotid endarterectomy -COPD -Hypothyroidism -History of prostate cancer status post radiation and seed placement Recommendation: Check CBC BMP and BNP in a.m. Continue close monitoring in ICU, 5 beats of V. tach has been recorded on telemetry I reviewed it with the nurse, to notify cardiology if it recur Recommend starting anticoagulation soon once okay with primary Dr. Salvador Cardiology consulted appreciated their recommendation with recommending cardiac catheter on Friday when okay to start anticoagulation with ortho, Continue nitroglycerin Lasix iv sent to be about cardiology 2-D echo reviewed by me, EF 25-30% Ric Camargo MD Jan 08, 2017 16:58
[2017-01-08] MEDS: SODIUM CHLORIDE 0.9% FLUSH 5 ML FLUSH IVF SCH (21:00)
[2017-01-08] MEDS: DOCUSATE SODIUM 100 MG CAP PO SCH (21:12)
[2017-01-08] MEDS: PRAVASTATIN SOD 80 MG TAB PO SCH (21:12)
[2017-01-08] MEDS: SERTRALINE HCL 50 MG TAB PO SCH (21:14)
[2017-01-08] MEDS: clonazePAM 0.5 MG TAB PO SCH (21:15)
[2017-01-08] MEDS: LEVOTHYROXINE SODIUM 125 MCG TAB PO SCH (21:15)
--- NOTE | 2017-01-08 21:51 | EKG ---
Date Performed: 01/08/2017 Time Performed: 07:46:57 PTAGE: 81 years EKG: ELECTRONIC VENTRICULAR PACEMAKER Atrial flutter PVCs PREVIOUS TRACING : 01/08/2017 03.27 Compared to prior tracing no significant change DOCTOR: China Crowley Interpretating Date/Time 01/08/2017 21:50:22
--- NOTE | 2017-01-08 22:02 | EKG ---
Date Performed: 01/08/2017 Time Performed: 03:27:56 PTAGE: 81 years EKG: Possible atrial flutter with PVC(s) Paced beats IV conduction defect Abnormal ECG PREVIOUS TRACING : 01/07/2017 19.35 Compared to prior tracing no significant change DOCTOR: China Crowley Interpretating Date/Time 01/08/2017 22:00:25
--- NOTE | 2017-01-08 22:21 | EKG ---
Date Performed: 01/07/2017 Time Performed: 19:35:15 PTAGE: 81 years EKG: ELECTRONIC VENTRICULAR PACEMAKER ABNORMAL RHYTHM ECG PREVIOUS TRACING : 12/25/2016 10.05 Compared to prior tracing no PVCs present DOCTOR: China Crowley Interpretating Date/Time 01/08/2017 22:19:23
[2017-01-09] VITALS (13 sets, daily range): BP systolic 98–121; BP diastolic 56–77; PULSE 84–93; RESP 14–25; TEMP 97.6–98.3; O2SAT 3–99
[2017-01-09] MEDS: ACETAMINOPHEN/HYDROcodone 325 MG/7.5 MG TAB PO PRN ×3 (00:44→22:26)
[2017-01-09] MEDS: NITROGLYCERIN 2% OINT 1 GM PACKET TOPICAL SCH ×4 (02:32→20:02)
[2017-01-09 04:46] LABS: AUTOMATED NEUTROPHIL # 13.8 TH/MM3 (1.8-7.7); BASOPHIL % 0.2 % (0.0-2.0); EOSINOPHIL % 0.2 % (0.0-4.0); HEMATOCRIT 35.6 % (39.0-51.0); LYMPH % 4.7 % (9.0-44.0); LYMPHOCYTE # 0.8 TH/MM3 (1.0-4.8); MEAN CELL VOLUME 93.7 FL (80.0-100.0); MEAN CORPUSCULAR HEMOGLOBIN 30.6 PG (27.0-34.0); MEAN CORPUSCULAR HGB CONC 32.6 % (32.0-36.0); MONO % 14.4 % (0.0-8.0); NEUT % 80.5 % (16.0-70.0); PLATELET COUNT 186 TH/MM3 (150-450); WHITE BLOOD COUNT 17.1 TH/MM3 (4.0-11.0)
[2017-01-09 04:51] LABS: HEMO FLAGS AUTO DIFF
[2017-01-09 05:04] LABS: BICARBONATE 27.6 MEQ/L (21.0-32.0)
[2017-01-09 06:00] LABS: SCAN/DIFF AUTO DIFF CONFIRMED
--- NOTE | 2017-01-09 08:43 | PD.CARD.PN ---
Subjective Subjective Remarks denies chest pain (Jorge Cortés) Objective Vital Signs / I&O Vital Signs Date Time Temp Pulse Resp B/P Pulse Ox O2 Delivery O2 Flow Rate FiO2 01/09/17 06:00 85 01/09/17 04:00 88 01/09/17 04:00 98.1 88 25 106/68 96 01/09/17 02:00 89 01/09/17 00:00 98.0 84 20 116/71 93 01/09/17 00:00 84 01/09/17 00:00 93 Nasal Cannula 3.00 01/08/17 22:00 86 01/08/17 21:38 98 Nasal Cannula 2.00 01/08/17 20:00 88 01/08/17 20:00 98.1 88 19 107/73 98 01/08/17 20:00 98 Nasal Cannula 3.00 01/08/17 18:25 96 Nasal Cannula 2.00 01/08/17 16:23 94 Nasal Cannula 4.00 01/08/17 16:22 98.1 90 18 112/70 96 01/08/17 12:00 98.8 90 24 107/69 90 01/08/17 10:00 89 01/08/17 09:40 20 01/08/17 08:45 20 I/O 01/08/17 01/08/17 01/08/17 01/09/17 01/09/17 01/09/17 07:00 15:00 23:00 07:00 15:00 23:00 Intake Total 703 ml 444 ml 358 ml Output Total 900 ml 1000 ml 200 ml Balance -197 ml -556 ml 158 ml Intake Oral 500 ml 240 ml 240 ml IV Total 203 ml 204 ml 118 ml Output Urine Total 900 ml 1000 ml 200 ml # Bowel Movements 0 0 Physical Exam GENERAL: Well-nourished, well-developed patient in no apparent distress. NECK: No JVD. No carotid bruit. CARDIOVASCULAR: Regular rate and rhythm. S1/S2 no murmur, rub, or gallop. RESPIRATORY: No accessory muscle use. Clear to auscultation. Breath sounds equal bilaterally. GASTROINTESTINAL: Abdomen soft, non-tender, nondistended. MUSCULOSKELETAL: Extremities without clubbing, cyanosis, or edema. Laboratory Laboratory Tests Test 01/08/17 01/08/17 01/09/17 09:10 14:44 03:17 Total Creatine Kinase 761 U/L Creatine Kinase MB 72.8 NG/ML Creatine Kinase MB % 9.6 % Troponin I 16.30 NG/ML Activated Partial 29.0 SEC Thromboplast Time White Blood Count 17.1 TH/MM3 Red Blood Count 3.80 MIL/MM3 Hemoglobin 11.6 GM/DL Hematocrit 35.6 % Mean Corpuscular Volume 93.7 FL Mean Corpuscular Hemoglobin 30.6 PG Mean Corpuscular Hemoglobin 32.6 % Concent Red Cell Distribution Width 15.0 % Platelet Count 186 TH/MM3 Mean Platelet Volume 8.8 FL Neutrophils (%) (Auto) 80.5 % Lymphocytes (%) (Auto) 4.7 % Monocytes (%) (Auto) 14.4 % Eosinophils (%) (Auto) 0.2 % Basophils (%) (Auto) 0.2 % Neutrophils # (Auto) 13.8 TH/MM3 Lymphocytes # (Auto) 0.8 TH/MM3 Monocytes # (Auto) 2.5 TH/MM3 Eosinophils # (Auto) 0.0 TH/MM3 Basophils # (Auto) 0.0 TH/MM3 CBC Comment AUTO DIFF Differential Comment AUTO DIFF CONFIRMED Sodium Level 137 MEQ/L Potassium Level 5.0 MEQ/L Chloride Level 100 MEQ/L Carbon Dioxide Level 27.6 MEQ/L Anion Gap 9 MEQ/L Blood Urea Nitrogen 33 MG/DL Creatinine 1.71 MG/DL Estimat Glomerular Filtration 39 ML/MIN Rate Random Glucose 127 MG/DL Calcium Level 8.5 MG/DL B-Type Natriuretic Peptide 1228 PG/ML (Jorge Cortés) Assessment and Plan Problem List: (1) Unstable angina (2) NSTEMI (non-ST elevated myocardial infarction) (3) Mitral regurgitation (4) Cardiomyopathy (5) Pulmonary HTN Assessment and Plan Chest pain resolved, plan for coronary angiogram tomorrow CHF - cardiomyopathy of uncertain etiology, EF 25% to 30%. Continue furosemide 40 mg PO daily and get strict I/O and daily weights His blood pressure is well controlled, no changes for now MR - mild pulmonary HTN - consider pulmonary consult (Jorge Cortés) Assessment and Plan nstemi - last [facility] from rodrigue reviewed. plan for [facility] tomorrow if cleared for anticoagulation if needed for PCI NPO p MN (Isai Pizarro MD) Jorge Cortés Jan 09, 2017 08:43 Isai Pizarro MD Jan 09, 2017 10:13
[2017-01-09] MEDS: METOPROLOL TARTRATE 25 MG TAB PO SCH ×2 (08:56→20:02)
[2017-01-09] MEDS: MAGNESIUM HYDROXIDE SUSP 30 ML CUP PO SCH ×2 (08:56→20:01)
[2017-01-09] MEDS: DOCUSATE SODIUM 100 MG CAP PO SCH ×2 (08:56→20:01)
[2017-01-09] MEDS: POTASSIUM CL 40 MEQ/30 ML LIQ UDC PO SCH ×2 (08:56→20:02)
[2017-01-09] MEDS: FUROSEMIDE 40 MG TAB PO SCH (08:57)
[2017-01-09] MEDS: SODIUM CHLORIDE 0.9% FLUSH 5 ML FLUSH IVF SCH ×2 (08:57→20:01)
[2017-01-09] MEDS: CARVEDILOL 3.125 MG TAB PO SCH ×2 (08:57→20:01)
--- NOTE | 2017-01-09 10:52 | PD.ORT.PN ---
Subjective Subjective Remarks Chest pain continues to improve. Has some 'reflux' type symptoms but mild. No arm pain or loss of function. No new SOB. Low back and leg doing well still. No new radiating leg pain. Feels is back is 'doing pretty well'. Objective Vitals Vital Signs Date Time Temp Pulse Resp B/P Pulse Ox O2 Delivery O2 Flow Rate FiO2 01/09/17 10:00 90 01/09/17 08:56 3 Nasal Cannula 96 01/09/17 08:00 98.3 88 19 121/77 96 01/09/17 08:00 88 01/09/17 07:00 96 Nasal Cannula 3.00 01/09/17 06:00 85 01/09/17 04:00 88 01/09/17 04:00 98.1 88 25 106/68 96 01/09/17 02:00 89 01/09/17 00:00 98.0 84 20 116/71 93 01/09/17 00:00 84 01/09/17 00:00 93 Nasal Cannula 3.00 01/08/17 22:00 86 01/08/17 21:38 98 Nasal Cannula 2.00 01/08/17 20:00 88 01/08/17 20:00 98.1 88 19 107/73 98 01/08/17 20:00 98 Nasal Cannula 3.00 01/08/17 18:25 96 Nasal Cannula 2.00 01/08/17 16:23 94 Nasal Cannula 4.00 01/08/17 16:22 98.1 90 18 112/70 96 01/08/17 12:00 98.8 90 24 107/69 90 I/O 01/08/17 01/08/17 01/08/17 01/09/17 01/09/17 01/09/17 07:00 15:00 23:00 07:00 15:00 23:00 Intake Total 703 ml 444 ml 358 ml Output Total 900 ml 1000 ml 200 ml Balance -197 ml -556 ml 158 ml Intake Oral 500 ml 240 ml 240 ml IV Total 203 ml 204 ml 118 ml Output Urine Total 900 ml 1000 ml 200 ml # Bowel Movements 0 0 Result Diagram: 01/09/1731601/09/17316 Objective Remarks Sitting up in bed, NAD VSS L/S Dressing c/d/i, no new drainage, mild warmth, no erythema +motor at and ehl 5/5, +sens, +nvi calves supple, neg homans Assessment & Plan Ortho Post Op Day #: 2 Problem List: Assessment and Plan pod#2 s/p Lami L34, L45, PSF L34 At this point interv cardiology can move forward with cardiac cath as planned for tomorrow/friday. Begin anticoagulation at that time. Continue PO pain meds. Tong cath apparently continued. Would prefer d/c to decrease infection risk if possible. Dry dressing changes daily. PT - WBAT w walker. Out of bed w lumbar brace. Medical / Cardiology monitoring. D/C planning TBD based on medical stability. If cath friday likely will not be candidate for d/c until friday or later. DME written. Milka Vora Jan 09, 2017 10:52
--- NOTE | 2017-01-09 10:58 | HHI.DS ---
Discharge Summary Admission Date Jan 07, 2017 at 06:55 Discharge Date: Jan 13, 2017 Admitting Diagnosis see below Diagnosis: (1) Lumbar radiculopathy Diagnosis: Principal (2) Lumbar spinal stenosis Diagnosis: Principal (3) Degeneration of intervertebral disc of lumbar region Diagnosis: Principal (4) Unstable angina Diagnosis: Secondary (5) Chest pain Diagnosis: Secondary (6) NSTEMI (non-ST elevated myocardial infarction) Diagnosis: Secondary Procedures Bilateral laminectomy L34, Laminectomy L45, Posterior spinal fusion with segmental instrumentation L34, interbody cage L34, bone graft. Brief History This is a 81 year old male patient with a history of back and leg pain. He sought out medical treatment when his activities of daily living began to be affected. Imaging studies showed spinal stenosis and possible instability at L34 with stenosis and a disc herniation at L45. Conservative measures were pursued for a period of time including therapy and injections but he continued to decline. Surgical treatment was recommended, medical clearance was obtained , and the patient elected to move forward with surgical treatment. CBC/BMP: 01/09/17 0317 01/09/17 0317 Significant Findings Laboratory Tests Test 01/07/17 01/07/17 01/08/17 01/08/17 08:40 21:25 03:45 05:57 Prothrombin Time 12.1 SEC (9.8-11.6) Blood Urea Nitrogen 25 MG/DL (7-18) Creatinine 1.48 MG/DL (0.60-1.30) Estimat Glomerular Filtration 46 ML/MIN (>89) Rate Random Glucose 162 MG/DL (74-106) White Blood Count 11.8 TH/MM3 (4.0-11.0) Red Blood Count 3.95 MIL/MM3 (4.50-5.90) Hemoglobin 12.0 GM/DL 11.7 GM/DL (13.0-17.0) (13.0-17.0) Hematocrit 36.9 % 36.0 % (39.0-51.0) (39.0-51.0) Neutrophils (%) (Auto) 86.2 % (16.0-70.0) Lymphocytes (%) (Auto) 2.8 % (9.0-44.0) Monocytes (%) (Auto) 10.9 % (0.0-8.0) Neutrophils # (Auto) 10.2 TH/MM3 (1.8-7.7) Lymphocytes # (Auto) 0.3 TH/MM3 (1.0-4.8) Monocytes # (Auto) 1.3 TH/MM3 (0-0.9) Total Creatine Kinase 526 U/L (39-308) Creatine Kinase MB 41.5 NG/ML (0.5-3.6) Creatine Kinase MB % 7.9 % (0.0-4.0) Troponin I 6.12 NG/ML (0.02-0.05) B-Type Natriuretic Peptide 1071 PG/ML (0-100) Test 01/08/17 01/09/17 09:10 03:17 Total Creatine Kinase 761 U/L (39-308) Creatine Kinase MB 72.8 NG/ML (0.5-3.6) Creatine Kinase MB % 9.6 % (0.0-4.0) Troponin I 16.30 NG/ML (0.02-0.05) White Blood Count 17.1 TH/MM3 (4.0-11.0) Red Blood Count 3.80 MIL/MM3 (4.50-5.90) Hemoglobin 11.6 GM/DL (13.0-17.0) Hematocrit 35.6 % (39.0-51.0) Neutrophils (%) (Auto) 80.5 % (16.0-70.0) Lymphocytes (%) (Auto) 4.7 % (9.0-44.0) Monocytes (%) (Auto) 14.4 % (0.0-8.0) Neutrophils # (Auto) 13.8 TH/MM3 (1.8-7.7) Lymphocytes # (Auto) 0.8 TH/MM3 (1.0-4.8) Monocytes # (Auto) 2.5 TH/MM3 (0-0.9) Blood Urea Nitrogen 33 MG/DL (7-18) Creatinine 1.71 MG/DL (0.60-1.30) Estimat Glomerular Filtration 39 ML/MIN (>89) Rate Random Glucose 127 MG/DL (74-106) B-Type Natriuretic Peptide 1228 PG/ML (0-100) PE at Discharge Sitting up in bed, NAD VSS L/S Dressing c/d/i, no new drainage, mild warmth, no erythema +motor at and ehl 03/21, +sens, +nvi calves supple, neg [facility] Hospital Course Surgical treatment was performed the day of admission. He recovered in PACU but began having increased chest pain. He was placed on telemetry. Medications were initiated and labwork was performed. He was found to have an elevated troponin and CK-MB. His chest pain improved significantly by the end of day one. Discussion was had about initiating heparin but the risk was too great for closed space postop bleeding at the surgical site and possible paralysis so anticoagulation was postponed. After 48 he was stable and cardiac catheterization was planned. He had stent placement in the right coronary artery on 01/10/17. He was found to be stable and cleared by cardiology for discharge on 01/13/17. He was instructed to continue his lumbar brace for an additional 10 weeks and to pursue a heart healthy high fiber diet. Cardiology followup was scheduled outpatient. Pt Condition on Discharge: Stable Discharge Disposition: Discharge Home Discharge Instructions Diet Instructions: As Tolerated, No Restrictions, High Fiber Diet Activities You Can Perform: Weight Bearing as Dayan, See Additionl Instruction Additional Activity Instruc.: Out of bed with brace New Medications: 3-in-1 Bedside Toilet (3-in-1 Bedside Toilet) 1 Mis Mis 1 EA .ROUTE DIRECTED #1 EA Hydrocodone-Acetaminophen (Fox) 7.5-325 mg Tab 1 TAB PO Q4H PRN PAIN #50 Ref 0 TAB Rivaroxaban (Xarelto) 10 Mg Tab 10 MG PO DAILY after 5 days return to preop dose Blood Clot Prevention Days 5 Ref 0 TAB Walker with Front Wheels (Walker with Front Wheels) 1 Mis Mis 1 EA .ROUTE DIRECTED #1 Ref 0 EA Continued Medications: Acetaminophen (Tylenol Extra Strength) 500 Mg Tab 1000 MG PO DAILY PAIN Ref 0 TAB Carvedilol (Carvedilol) 3.125 Mg Tab 3.125 MG PO BID #60 Ref 0 TAB Clonazepam (Clonazepam) 0.5 Mg Tab 0.5 MG PO HS #60 Ref 0 TAB Fluticasone Nasal [place] (Fluticasone Nasal [place]) 50 Mcg/Act Naspr 50 MCG EACH NARE BID 50 mcg/spray PRN ALLERGIES #1 Ref 0 BOTTLE Furosemide (Lasix) 20 Mg Tab 10 MG PO BID PATIENT TAKES 1/2 HALF TABLET IN AM AND 1/2 TABLET IN PM #30 Ref 0 TAB Isosorbide Mononitrate ER (Isosorbide Mononitrate ER) 60 Mg Tab 60 MG PO DAILY Prevent Chest Pain #30 Ref 0 TAB Levothyroxine (Levothyroxine) 125 Mcg Tab 125 MCG PO HS Thyroid #30 Ref 0 TAB Potassium Chloride ER (Klor-Con 10) 10 Meq Tab 5 MEQ PO BID PATIENT TAKES 1/2 TABLET IN AM AND 1/2 TABLET IN PM Electrolyte Replacement #30 Ref 0 TAB Pravastatin (Pravastatin) 80 Mg Tab 80 MG PO HS Cholesterol Management #30 Ref 0 TAB Sertraline (Sertraline) 50 Mg Tab 50 MG PO HS #30 Ref 0 TAB Discontinued Medications: Rivaroxaban (Xarelto) 20 Mg Tab 20 MG PO DAILY Blood Clot Prevention Ref 0 TAB Milka Vora Jan 09, 2017 10:58
--- NOTE | 2017-01-09 15:56 | HHI.PR ---
Subjective Remarks Patient denied chest pain, reported mild , his on oxygen Afebrile, plan to go for heart catheter tomorrow if okay with anticoagulation by ortho D/W the nurse, concerned about urine output only 200 last shift, will do renal workup most likely related to CHF Objective Vitals Vital Signs Date Time Temp Pulse Resp B/P Pulse Ox O2 Delivery O2 Flow Rate FiO2 01/09/17 12:00 91 01/09/17 10:00 90 01/09/17 08:56 3 Nasal Cannula 96 01/09/17 08:00 98.3 88 19 121/77 96 01/09/17 08:00 88 01/09/17 07:00 96 Nasal Cannula 3.00 01/09/17 06:00 85 01/09/17 04:00 88 01/09/17 04:00 98.1 88 25 106/68 96 01/09/17 02:00 89 01/09/17 00:00 98.0 84 20 116/71 93 01/09/17 00:00 84 01/09/17 00:00 93 Nasal Cannula 3.00 01/08/17 22:00 86 01/08/17 21:38 98 Nasal Cannula 2.00 01/08/17 20:00 88 01/08/17 20:00 98.1 88 19 107/73 98 01/08/17 20:00 98 Nasal Cannula 3.00 01/08/17 18:25 96 Nasal Cannula 2.00 01/08/17 16:23 94 Nasal Cannula 4.00 01/08/17 16:22 98.1 90 18 112/70 96 I/O 01/08/17 01/08/17 01/08/17 01/09/17 01/09/17 01/09/17 07:00 15:00 23:00 07:00 15:00 23:00 Intake Total 703 ml 444 ml 358 ml Output Total 900 ml 1000 ml 200 ml Balance -197 ml -556 ml 158 ml Intake Oral 500 ml 240 ml 240 ml IV Total 203 ml 204 ml 118 ml Output Urine Total 900 ml 1000 ml 200 ml # Bowel Movements 0 0 Result Diagram: 01/09/1731601/09/17316 Objective Remarks GENERAL: This is a well-nourished, well-developed patient, in no apparent distress. SKIN: No rashes, warm and dry HEAD: Atraumatic. Normocephalic. EYES: Pupils equal round and reactive. Extraocular motions intact. No scleral icterus. ENT: Nose without bleeding, or drainage, Airway patent. NECK: Trachea midline. Supple CARDIOVASCULAR: Regular rate and rhythm without murmurs, gallops, or rubs. RESPIRATORY: Fair air entry bilaterally. No wheezes, rales, or rhonchi. GASTROINTESTINAL: Abdomen soft, non-tender, nondistended. Positive bowel sounds MUSCULOSKELETAL: Extremities without clubbing, cyanosis, or edema. Pedal pulses appreciated NEUROLOGICAL: Awake and alert. Moves all extremity. Normal speech.no focal neurological deficit A/P Problem List: (1) Fluid overload ICD Code: E87.70 Status: Acute (2) Chest pain ICD Code: R07.9 Status: Acute (3) Tachycardia ICD Code: R00.0 Status: Acute Assessment and Plan -Acute Non-STEMI with significant increase in troponin 16.3 and chest pain -Patient underwent bilateral laminectomy from L3-L4, left laminectomy L4-L5, lateral recess decompression, subtotal facets resection, posterior spinal fusion L3-L4, PLIF L3-L4, posterior segmental spinal instrumentation L3-L4 today for a 2016. -On 01/09 Oliguria with 200 cc urine last shift, JAZMINE on CKD mostly due to CHF -Acute and chronic CHF with volume overload pulmonary edema -Hypertension -History of coronary artery disease status post CABG 2009, cardiac stenting total 15 stents last one April 2016 -Hyperlipidemia -A. fib Xarelto has been stop a week before the surgery -Left carotid endarterectomy -COPD -Hypothyroidism -History of prostate cancer status post radiation and seed placement Recommendation: -Low urine output with increased creatinine, We'll check chest x-ray to assess for congestion, consider changing Lasix to iv, strict I&O, will check renal ultrasound, spot urine protein over creatinine ratio -Reviewed CBC BMP, BNP increased to 1200>> Lasix switched to by mouth per cardiology, consider continue on iv -Cardiology plan for cardiac catheter on Friday when okay to start anticoagulation with ortho, -Continue close monitoring in ICU, 5 beats of V. tach cardiology following Continue nitroglycerin 2-D echo reviewed by me, EF 25-30% Ric Camargo MD Jan 09, 2017 15:56
[2017-01-09] MEDS ORDERED: FUROSEMIDE 20 MG/2 ML VIAL IV PUSH ONE (16:45)
--- NOTE | 2017-01-09 17:59 | RADRPT ---
EXAM DATE/TIME: 01/09/2017 17:30 [facility] COMPARISON: CHEST SINGLE AP, January 07, 2017, 20:39. INDICATIONS : Short of Breath, Rule Out Congestion. MEDICAL HISTORY : Chronic obstructive pulmonary disease. SURGICAL HISTORY : Pacemaker. Heart Bypass, Stents. ENCOUNTER: Subsequent ACUITY: 3 days PAIN SCORE: 0/10 LOCATION: Bilateral chest FINDINGS: There is persistent indistinctness of the bronchopulmonary markings in the infrahilar region bilatera lly, similar to prior. The heart is enlarged, stable. Both hemidiaphragms well delineated. The upp er lungs are clear. Evidence of prior median sternotomy. Cardiac pacer leads stable. CONCLUSION: Persistent interstitial prominence in the medial lower lungs, stable from prior. Gerald Murcia MD on January 09, 2017 at 17:57 Board Certified Radiologist. This report was verified electronically.
--- NOTE | 2017-01-09 19:10 | EKG ---
Date Performed: 01/09/2017 Time Performed: 06:27:52 PTAGE: 81 years EKG: Demand V-pacing with PVC(s) with 1st degree A-V block. Indeterminate axis Abnormal ECG Comp ared to the PREVIOUS TRACING from 01/08/17, no significant change DOCTOR: Jaime Humphreys Interpretating Date/Time 01/09/2017 19:08:00
[2017-01-09] MEDS: LEVOTHYROXINE SODIUM 125 MCG TAB PO SCH (20:01)
[2017-01-09] MEDS: SERTRALINE HCL 50 MG TAB PO SCH (20:01)
[2017-01-09] MEDS: PRAVASTATIN SOD 80 MG TAB PO SCH (20:01)
[2017-01-09] MEDS: clonazePAM 0.5 MG TAB PO SCH (20:01)
[2017-01-09 21:22] LABS: BACTERIA, URINE RARE /hpf; BLOOD, URINE LARGE (NEG); COMMENT (UR) CULTURE INDICATED; CULTURE IF INDICATED CULTURE INDICATED; GLUCOSE,URINE NEG (NEG); KETONE, URINE NEG (NEG); MUCUS URINE FEW /lpf (OCC); NITRITE,URINE NEG (NEG); PH, URINE 5.5 (5.0-8.5); SQUAMOUS EPITHELIAL CELL URINE <1 /hpf (0-5); URINE COLOR YELLOW (YELLW/STRAW)
--- NOTE | 2017-01-09 22:12 | RADRPT ---
EXAM DATE/TIME: 01/09/2017 17:33 [facility] COMPARISON: No previous studies available for comparison. INDICATIONS : Abnormal labs. MEDICAL HISTORY : Congestive heart failure. Chronic obstructive pulmonary disease. Hypertension. Thyroid disease. Heari ng loss. Coronary artery disease. Right kidney cyst. Arthritis. Osteoporosis. Skin cancer. Prostate c ancer. SURGICAL HISTORY : CABG. Coronary artery stent. Pacemaker. Bilateral cataract removal. Sinus surgery. Prostate surgery. Left knee surgery. ENCOUNTER: Initial ACUITY: 1 day PAIN SCORE: 0/10 LOCATION: Bilateral flank MEASUREMENTS: RIGHT KIDNEY: 12.9 x 6.7 x 5.4 cm LEFT KIDNEY: 10.3 x 5.8 x 5.5 cm FINDINGS: Gallbladder visualizes structure with sludge and wall thickening of 5 mm RIGHT KIDNEY: Renal cortex is normal thickness and echogenicity. No hydronephrosis or stone. There is a complex cys tic and solid 6.3 cm mass in the upper pole require further evaluation LEFT KIDNEY: Renal cortex is normal in thickness and echotexture. No hydronephrosis, stone, or mass. BLADDER: Within normal limits given the degree of distension. Tong catheter in place CONCLUSION: 6.3 cm right kidney upper pole cystic complex mass require further evaluation to exclude solid mass s uch as renal cell tumor. Gallbladder containing sludge with thickened wall at 5 mm .. Yusuf Caro MD on January 09, 2017 at 22:09 Board Certified Radiologist. This report was verified electronically.
[2017-01-10] VITALS (12 sets, daily range): BP systolic 96–121; BP diastolic 56–64; PULSE 79–94; RESP 15–23; TEMP 97.1–98.4; O2SAT 92–95
[2017-01-10 04:30] LABS: AUTOMATED NEUTROPHIL # 10.2 TH/MM3 (1.8-7.7); BASOPHIL % 0.3 % (0.0-2.0); EOSINOPHIL # 0.1 TH/MM3 (0-0.4); EOSINOPHIL % 0.8 % (0.0-4.0); HEMATOCRIT 32.3 % (39.0-51.0); HEMO FLAGS DIFF FINAL; LYMPH % 6.8 % (9.0-44.0); LYMPHOCYTE # 0.9 TH/MM3 (1.0-4.8); MEAN CELL VOLUME 94.4 FL (80.0-100.0); MEAN CORPUSCULAR HEMOGLOBIN 30.2 PG (27.0-34.0); MONO % 13.9 % (0.0-8.0); NEUT % 78.2 % (16.0-70.0); PLATELET COUNT 164 TH/MM3 (150-450); RED BLOOD COUNT 3.43 MIL/MM3 (4.50-5.90); RED CELL DISTRIBUTION WIDTH 14.9 % (11.6-17.2)
[2017-01-10 04:53] LABS: BICARBONATE 29.1 MEQ/L (21.0-32.0); POTASSIUM 4.7 MEQ/L (3.5-5.1)
--- NOTE | 2017-01-10 08:06 | PD.ORT.PN ---
Subjective Subjective Remarks Lying in bed comfortably. In ISC. No leg pain. No chest pain Objective Vitals Vital Signs Date Time Temp Pulse Resp B/P Pulse Ox O2 Delivery O2 Flow Rate FiO2 01/10/17 04:00 97.6 82 15 98/57 95 01/10/17 02:00 84 01/10/17 00:00 98.1 82 20 101/64 95 01/10/17 00:00 82 01/09/17 20:00 97.6 87 23 98/56 98 01/09/17 20:00 86 01/09/17 20:00 95 Nasal Cannula 4.00 01/09/17 18:00 86 01/09/17 16:00 98.0 93 14 111/70 99 01/09/17 16:00 93 01/09/17 15:00 88 01/09/17 14:00 90 01/09/17 12:00 91 01/09/17 12:00 98.2 91 15 116/71 94 01/09/17 10:00 90 01/09/17 08:56 3 Nasal Cannula 96 I/O 01/09/17 01/09/17 01/09/17 01/10/17 01/10/17 01/10/17 07:00 15:00 23:00 07:00 15:00 23:00 Intake Total 358 ml 392 ml 150 ml 96 ml Output Total 200 ml 200 ml 350 ml 300 ml Balance 158 ml 192 ml -200 ml -204 ml Intake Oral 240 ml 300 ml 50 ml IV Total 118 ml 92 ml 100 ml 96 ml Output Urine Total 200 ml 200 ml 350 ml 300 ml # Bowel Movements 0 0 0 0 Result Diagram: 01/10/1731601/10/17316 Procedures Bilateral laminectomy L34, Laminectomy L45, Posterior spinal fusion with segmental instrumentation L34, interbody cage L34, bone graft. Objective Remarks Sitting up in bed, NAD VSS L/S Dressing c/d/i, no new drainage, mild warmth, no erythema +motor at and ehl 5/5, +sens, +nvi calves supple, neg homans Assessment & Plan Ortho Post Op Day #: 3 Problem List: (1) Lumbar radiculopathy (2) Lumbar spinal stenosis (3) Degeneration of intervertebral disc of lumbar region (4) Unstable angina (5) Chest pain (6) NSTEMI (non-ST elevated myocardial infarction) Assessment and Plan Spinal stenosis L3 4, L4 5. HNP L3 4 extruded. Bilateral laminectomy L3 4 and L4 5, posterior spinal fusion L3 4, cage, bone graft: POD #3 Postop cardiac ischemia with abnormal enzymes. PLAN: Out of bed when cleared by cardiology Scheduled for cardiac cath today When out of bed, brace full-time Daily dressing change, dry Probable discharge to SNF when cleared by cardiology. From our standpoint we will defer to medical for discharge recommendations/timing Meds for pain are written Anticoagulation per medical. Patient was on Xarelto 20 mg daily before surgery. Okay by me for Xarelto 10 mg daily until 1 week after surgery and then can increase to preoperative dose. Would prefer low-dose anticoagulation, if necessary due to recent lumbar spine surgery Dean Salvador MD Jan 10, 2017 08:06
--- NOTE | 2017-01-10 08:22 | PD.CARD.PN ---
Subjective Subjective Remarks denies chest pain (Jorge Cortés) Objective Vital Signs / I&O Vital Signs Date Time Temp Pulse Resp B/P Pulse Ox O2 Delivery O2 Flow Rate FiO2 01/10/17 08:00 97.8 80 23 100/58 94 01/10/17 07:00 95 Nasal Cannula 4.00 01/10/17 04:00 97.6 82 15 98/57 95 01/10/17 02:00 84 01/10/17 00:00 98.1 82 20 101/64 95 01/10/17 00:00 82 01/09/17 20:00 97.6 87 23 98/56 98 01/09/17 20:00 86 01/09/17 20:00 95 Nasal Cannula 4.00 01/09/17 18:00 86 01/09/17 16:00 98.0 93 14 111/70 99 01/09/17 16:00 93 01/09/17 15:00 88 01/09/17 14:00 90 01/09/17 12:00 91 01/09/17 12:00 98.2 91 15 116/71 94 01/09/17 10:00 90 01/09/17 08:56 3 Nasal Cannula 96 I/O 01/09/17 01/09/17 01/09/17 01/10/17 01/10/17 01/10/17 07:00 15:00 23:00 07:00 15:00 23:00 Intake Total 358 ml 392 ml 150 ml 96 ml Output Total 200 ml 200 ml 350 ml 300 ml Balance 158 ml 192 ml -200 ml -204 ml Intake Oral 240 ml 300 ml 50 ml IV Total 118 ml 92 ml 100 ml 96 ml Output Urine Total 200 ml 200 ml 350 ml 300 ml # Bowel Movements 0 0 0 0 Physical Exam GENERAL: Well-nourished, well-developed patient in no apparent distress. NECK: No JVD. No carotid bruit. CARDIOVASCULAR: Regular rate and rhythm. S1/S2 no murmur, rub, or gallop. RESPIRATORY: No accessory muscle use. Clear to auscultation. Breath sounds equal bilaterally. GASTROINTESTINAL: Abdomen soft, non-tender, nondistended. MUSCULOSKELETAL: Extremities without clubbing, cyanosis, or edema. Laboratory Laboratory Tests Test 01/09/17 01/10/17 20:30 03:17 Urine Color YELLOW Urine Turbidity HAZY Urine pH 5.5 Urine Specific [place] 1.023 Urine Protein 30 mg/dL Urine Glucose (UA) NEG mg/dL Urine Ketones NEG mg/dL Urine Occult Blood LARGE Urine Nitrite NEG Urine Bilirubin NEG Urine Urobilinogen LESS THAN 2.0 MG/DL Urine Leukocyte Esterase MOD Urine RBC 171 /hpf Urine WBC 19 /hpf Urine Squamous Epithelial <1 /hpf Cells Urine Bacteria RARE /hpf Urine Mucus FEW /lpf Microscopic Urinalysis Comment CULTURE INDICATED Urine Eosinophils NONE SEEN /HPF Urine Random Creatinine 171 MG/DL Urine Random Total Protein 56 MG/DL Urine Random Sodium LESS THAN 5 MEQ/L Urine Protein/Creatinine Ratio 0.33 White Blood Count 13.0 TH/MM3 Red Blood Count 3.43 MIL/MM3 Hemoglobin 10.4 GM/DL Hematocrit 32.3 % Mean Corpuscular Volume 94.4 FL Mean Corpuscular Hemoglobin 30.2 PG Mean Corpuscular Hemoglobin 32.0 % Concent Red Cell Distribution Width 14.9 % Platelet Count 164 TH/MM3 Mean Platelet Volume 8.5 FL Neutrophils (%) (Auto) 78.2 % Lymphocytes (%) (Auto) 6.8 % Monocytes (%) (Auto) 13.9 % Eosinophils (%) (Auto) 0.8 % Basophils (%) (Auto) 0.3 % Neutrophils # (Auto) 10.2 TH/MM3 Lymphocytes # (Auto) 0.9 TH/MM3 Monocytes # (Auto) 1.8 TH/MM3 Eosinophils # (Auto) 0.1 TH/MM3 Basophils # (Auto) 0.0 TH/MM3 CBC Comment DIFF FINAL Differential Comment Sodium Level 135 MEQ/L Potassium Level 4.7 MEQ/L Chloride Level 98 MEQ/L Carbon Dioxide Level 29.1 MEQ/L Anion Gap 8 MEQ/L Blood Urea Nitrogen 37 MG/DL Creatinine 1.40 MG/DL Estimat Glomerular Filtration 49 ML/MIN Rate Random Glucose 100 MG/DL Calcium Level 8.3 MG/DL B-Type Natriuretic Peptide 1143 PG/ML (Jorge Cortés) Assessment and Plan Problem List: (1) Unstable angina (2) NSTEMI (non-ST elevated myocardial infarction) (3) Mitral regurgitation (4) Cardiomyopathy (5) Pulmonary HTN Assessment and Plan Chest pain resolved, plan for coronary angiogram today CHF - cardiomyopathy of uncertain etiology, EF 25% to 30%. Continue furosemide 40 mg PO daily and get strict I/O and daily weights Stop metoprolol since he is on both that and carvedilol His blood pressure is well controlled, no changes for now MR - mild pulmonary HTN - consider pulmonary consult (Jorge Cortés) Assessment and Plan NSTEMI - PCI SVG-RCA with BMS. recommend aspirin and plavix. Can discuss anticoagulation (previously on for afib) with Dr. Lawler, but with his increased risk of bleeding postoperatively, I suspect we will not restart. He can reinitiate anticoagulation on an outpatient basis after discontinuation of plavix in 4-6 weeks cardiomyopathy - new. ischemic. I suspect some improvement post-procedure, but he is at increased risk for arrhythmia. He has PPM not ICD. Plan for LifeVest. Outpatient echo in 2- 3 months to reassess EF. monitor Cr. minimal contrast given: 60 cc. cont lasix. will avoid aggressive hydration given EF. DC planning (Isai Pizarro MD) Jorge Cortés Jan 10, 2017 08:22 Isai Pizarro MD Jan 10, 2017 11:15
[2017-01-10] MEDS: MAGNESIUM HYDROXIDE SUSP 30 ML CUP PO SCH ×2 (08:49→20:00)
[2017-01-10] MEDS: DOCUSATE SODIUM 100 MG CAP PO SCH ×2 (08:49→20:16)
[2017-01-10] MEDS: SODIUM CHLORIDE 0.9% FLUSH 5 ML FLUSH IVF SCH ×2 (08:57→20:16)
[2017-01-10] MEDS: NITROGLYCERIN 2% OINT 1 GM PACKET TOPICAL SCH ×3 (08:57→20:19)
[2017-01-10] MEDS: CARVEDILOL 3.125 MG TAB PO SCH ×2 (08:57→20:16)
[2017-01-10] MEDS: POTASSIUM CL 40 MEQ/30 ML LIQ UDC PO SCH ×2 (08:58→20:15)
[2017-01-10] MEDS: FUROSEMIDE 40 MG TAB PO SCH (08:58)
[2017-01-10] MEDS ORDERED: LIDOCAINE HCL 2% 100 MG/5 ML SYRINGE ONE (09:25)
[2017-01-10] MEDS ORDERED: ATROPINE SULFATE 1 MG/10 ML SYRINGE ONE (09:25)
[2017-01-10] MEDS ORDERED: EPINEPHrine HCL (1:10,000) 1 MG/10 ML SYRINGE ONE (09:25)
[2017-01-10] MEDS ORDERED: HEPARIN-NS/PF INJ 500 ML ONE (10:00)
[2017-01-10] MEDS ORDERED: HEPARIN SODIUM - IV 10,000 UNITS/10 ML VIAL ONE (10:03)
[2017-01-10] MEDS ORDERED: MIDAZOLAM HCL 2 MG/2 ML VIAL ONE (10:03)
[2017-01-10] MEDS ORDERED: IOHEXOL 350 MG/ML 100 ML BTL (for Cath Lab) OTHER ONE (10:18)
[2017-01-10] MEDS ORDERED: BIVALIRUDIN 250 MG VIAL ONE (10:47)
[2017-01-10] MEDS ORDERED: STERILE WATER FOR INJECTION 10 ML VIAL ONE (10:48)
[2017-01-10] MEDS ORDERED: CLOPIDOGREL 300 MG TAB ONE (10:56)
[2017-01-10] MEDS ORDERED: BIVALIRUDIN INJ 250 MG in SODIUM CHLORIDE 0.9% INJ 50 ML IV SCH (11:07)
[2017-01-10] MEDS ORDERED: MISC INFORMATION XX ONE (11:15)
[2017-01-10] MEDS ORDERED: CLOPIDOGREL 300 MG TAB PO ONE (11:15)
[2017-01-10] MEDS ORDERED: LIDOCAINE 2% JELLY 30 ML TUBE TOP PRN (11:15)
[2017-01-10] MEDS ORDERED: PLAV75TA29 PO (11:19)
[2017-01-10] MEDS ORDERED: ASPI81TA11 PO (11:19)
[2017-01-10] MEDS ORDERED: BACITRACIN OINT 0.9 GM PKT TOP ONE (11:30)
[2017-01-10] MEDS: ASPIRIN EC 81 MG TABEC PO SCH (11:57)
--- NOTE | 2017-01-10 12:13 | MA ---
cc: RENETTA SANABRIA DATE: 01/10/2017 INDICATION Gly-[id number] myocardial infarction. PROCEDURE PERFORMED 1. Fluoroscopy with interpretation. 2. Coronary angiography. 3. Bypass graft angiography 4. Percutaneous intervention with bare metal stent to the saphenous vein graft to the right coronary artery. METHOD: Risks and alternatives us with the patient. The patient understood and consented. PROCEDURE The patient brought catheterization lab and the catheterization table. Right wrist was prepped and draped in sterile fashion. Right wrist was anesthetized 2% lidocaine. Right radial artery is cannulated with a 5-[place] Citizen 11 cm sheath was placed without difficulty. 100 mcg intraarterial nitroglycerin 2000 units of intravenous heparin was administered. CORONARY ANGIOGRAPHY: 1. Left main coronary angiographically normal. 2. Left anterior descending coronary has minor luminal irregularities proximally. 3. The diagonal branch has about 30% proximal stenosis. 4. The mid left anterior descending coronary is occluded. Is not well visualized distally. 5. The left circumflex gives rise to a high obtuse marginal branch smaller caliber size angiographically normal. 6. Second obtuse marginal branch appears to be occluded. 7. Right coronary is occluded proximally. CORONARY BYPASS GRAFT ANGIOGRAPHY: 1. Left internal mammary to the left anterior descending coronary atretic this is previously documented on heart catheterization at [facility]. 2. Saphenous vein graft to the diagonal branch appears to be occluded. 3. Saphenous vein graft to the obtuse marginal branch has a 60% distal anastomotic stenosis. This stent is throughout the entire course. This appears to be the vessel that was intervened on back in 2014, although as mentioned then as bypass to the diagonal branch which I think was incorrect. 4. Saphenous vein graft to the right coronary artery has a stent present in its distal segment 90% stenosis proximally at the proximal margin of the stent. The right coronary is otherwise smaller caliber size with the posterior descending posterolateral branches are patent. 5. Percutaneous intervention; saphenous vein graft to the right coronary artery was selectively engaged with a 6-[place] Citizen multipurpose catheter 0.014, 180 cm true run-through wire was navigated down the distal posterior descending branch. A 2.5 x 10 mm RX C4 balloon was then deployed in the proximal margin of the stent. Repeat angiography still showed residual stenosis. A 3.5 x 18 mm RX bare metal stent was then deployed with stent overlap. 6. Repeat angiography showed good angiographic result, antiemetics were maintained throughout the entire procedure maintained appropriate anticoagulation. Anticoagulation had been previously cleared by orthopedic surgery. CONCLUSION 1. Severe three-vessel [place] coronary disease. 2. Two of four coronary bypass grafts are patent. 3. Successful percutaneous interventions saphenous vein graft to the right coronary artery. PLAN The patient will be monitored closely for any post procedural complications. The patient to be initiated on aspirin and Plavix. Given the recent surgery I don't think triple therapy with anticoagulant with an oral anticoagulant would be ideal, although he is at higher risk for stroke related to the atrial fibrillation, I would favor aspirin and Plavix at this time to maintain stent patency. After completion of the four to six weeks of Plavix therapy can be converted back to full anticoagulation. This will minimize the bleeding risk into the spine but also cover him for stent thrombosis. Given his cardiomyopathy and revascularization, he will be a candidate for LifeVest. MD NICK Moore/alisha /11:30 AM /11:46 AM PINKY
--- NOTE | 2017-01-10 16:38 | HHI.PR ---
Subjective Remarks This is a follow up consultation for orthopedic back surgery complicated with non-STEMI, and blood pressure on the lower side Mr. Rivera resting in bed comfortably without chest a now He had heart catheter earlier this morning with stenting is on aspirin and Plavix Afebrile short of breath on O2 nasal cannula Objective Vitals Vital Signs Date Time Temp Pulse Resp B/P Pulse Ox O2 Delivery O2 Flow Rate FiO2 01/10/17 15:00 86 01/10/17 12:00 98.3 81 18 106/63 94 01/10/17 11:26 98.3 81 18 106/63 94 01/10/17 08:00 97.8 80 23 100/58 94 01/10/17 07:00 81 01/10/17 07:00 95 Nasal Cannula 4.00 01/10/17 04:00 97.6 82 15 98/57 95 01/10/17 02:00 84 01/10/17 00:00 98.1 82 20 101/64 95 01/10/17 00:00 82 01/09/17 20:00 97.6 87 23 98/56 98 01/09/17 20:00 86 01/09/17 20:00 95 Nasal Cannula 4.00 01/09/17 18:00 86 I/O 01/09/17 01/09/17 01/09/17 01/10/17 01/10/17 01/10/17 07:00 15:00 23:00 07:00 15:00 23:00 Intake Total 358 ml 392 ml 150 ml 96 ml 50 ml Output Total 200 ml 200 ml 350 ml 300 ml 325 ml Balance 158 ml 192 ml -200 ml -204 ml -275 ml Intake Oral 240 ml 300 ml 50 ml IV Total 118 ml 92 ml 100 ml 96 ml 50 ml Output Urine Total 200 ml 200 ml 350 ml 300 ml 325 ml # Bowel Movements 0 0 0 0 0 Result Diagram: 01/10/1731601/10/17316 Objective Remarks GENERAL: This is a well-nourished, well-developed patient, in no apparent distress. SKIN: No rashes, warm and dry HEAD: Atraumatic. Normocephalic. EYES: Pupils equal round and reactive. Extraocular motions intact. No scleral icterus. ENT: Nose without bleeding, or drainage, Airway patent. NECK: Trachea midline. Supple CARDIOVASCULAR: Regular rate and rhythm without murmurs, gallops, or rubs. RESPIRATORY: Fair air entry bilaterally. No wheezes, rales, or rhonchi. GASTROINTESTINAL: Abdomen soft, non-tender, nondistended. Positive bowel sounds MUSCULOSKELETAL: Extremities without clubbing, cyanosis, or edema. Pedal pulses appreciated NEUROLOGICAL: Awake and alert. Moves all extremity. Normal speech.no focal neurological deficit A/P Problem List: (1) Fluid overload ICD Code: E87.70 Status: Acute (2) Chest pain ICD Code: R07.9 Status: Acute (3) Tachycardia ICD Code: R00.0 Status: Acute Assessment and Plan -Acute Non-STEMI with significant increase in troponin 16.3 and chest pain -Patient underwent bilateral laminectomy from L3-L4, left laminectomy L4-L5, lateral recess decompression, subtotal facets resection, posterior spinal fusion L3-L4, PLIF L3-L4, posterior segmental spinal instrumentation L3-L4 today for a 2016. -JAZMINE on CKD mostly due to CHF/NSTEMI On 01/09 urine output decreased with 200 cc urine in 1 shift, -Acute and chronic CHF with volume overload pulmonary edema -Hypertension now with hypotension -History of coronary artery disease status post CABG 2009, cardiac stenting total 15 stents last one April 2016 -Hyperlipidemia -A. fib Xarelto has been stop a week before the surgery -Left carotid endarterectomy -COPD -Hypothyroidism -History of prostate cancer status post radiation and seed placement Recommendation: -Urine output slightly increased with bending trending down, chest x-ray yesterday did not reveal significant pulmonary edema or congestion but persistent interstitial prominence mid lower lung, patient on Lasix by mouth, and tinea strict I&O, renal ultrasound>> 6.3 mm right upper pole kidney cyst need to be ruled out for a solid mass, spot urine protein over creatinine ratio reviewed, consider consulting nephrology if not improving -Reviewed CBC BMP, BNP increased to 1200>> Lasix switched to by mouth per cardiology -Cardiology plan for cardiac catheter on Friday when okay to start anticoagulation with ortho, -Continue close monitoring in ICU, 5 beats of V. tach cardiology following Continue nitroglycerin 2-D echo reviewed by me, EF 25-30% Discharge Planning Her ortho primary Ric Camargo MD Jan 10, 2017 16:38
[2017-01-10] MEDS: LEVOTHYROXINE SODIUM 125 MCG TAB PO SCH (20:15)
[2017-01-10] MEDS: SERTRALINE HCL 50 MG TAB PO SCH (20:15)
[2017-01-10] MEDS: clonazePAM 0.5 MG TAB PO SCH (20:15)
[2017-01-10] MEDS: PRAVASTATIN SOD 80 MG TAB PO SCH (20:16)
[2017-01-11] VITALS (8 sets, daily range): BP systolic 96–118; BP diastolic 56–86; PULSE 66–92; RESP 19–23; TEMP 96.3–98.5; O2SAT 96–98
[2017-01-11] MEDS: NITROGLYCERIN 2% OINT 1 GM PACKET TOPICAL SCH ×3 (03:00→21:05)
[2017-01-11 04:14] LABS: AUTOMATED NEUTROPHIL # 9.6 TH/MM3 (1.8-7.7); BASOPHIL % 0.3 % (0.0-2.0); EOSINOPHIL # 0.1 TH/MM3 (0-0.4); EOSINOPHIL % 0.7 % (0.0-4.0); HEMATOCRIT 32.3 % (39.0-51.0); HEMO FLAGS DIFF FINAL; LYMPH % 5.7 % (9.0-44.0); LYMPHOCYTE # 0.7 TH/MM3 (1.0-4.8); MEAN CELL VOLUME 92.5 FL (80.0-100.0); MEAN CORPUSCULAR HEMOGLOBIN 30.2 PG (27.0-34.0); MEAN CORPUSCULAR HGB CONC 32.7 % (32.0-36.0); MONO % 13.3 % (0.0-8.0); PLATELET COUNT 179 TH/MM3 (150-450); RED BLOOD COUNT 3.49 MIL/MM3 (4.50-5.90); RED CELL DISTRIBUTION WIDTH 14.5 % (11.6-17.2)
[2017-01-11 04:29] LABS: BICARBONATE 29.3 MEQ/L (21.0-32.0); POTASSIUM 4.5 MEQ/L (3.5-5.1)
[2017-01-11 04:32] LABS: HDL CHOLESTEROL 30.5 MG/DL (40.0-60.0)
[2017-01-11] MEDS: SODIUM CHLORIDE 0.9% FLUSH 5 ML FLUSH IVF SCH ×2 (09:00→23:57)
--- NOTE | 2017-01-11 10:22 | HHI.PR ---
Subjective Remarks in no acute distress. no chest pain or sob. back pain is fairly controlled. at times confused. d/w the RN and no other acute issues over night. Objective Vitals Vital Signs Date Time Temp Pulse Resp B/P Pulse Ox O2 Delivery O2 Flow Rate FiO2 01/11/17 08:00 97.9 81 23 117/86 98 01/11/17 07:00 98 Nasal Cannula 4.00 01/11/17 07:00 83 01/11/17 04:00 98.0 66 20 116/70 98 01/11/17 00:00 98.0 77 19 115/56 96 01/10/17 23:00 80 01/10/17 20:00 92 Nasal Cannula 4.00 01/10/17 20:00 97.1 82 22 121/58 92 01/10/17 19:07 94 01/10/17 16:00 98.4 79 22 96/56 93 01/10/17 15:00 86 01/10/17 12:00 98.3 81 18 106/63 94 01/10/17 11:26 98.3 81 18 106/63 94 I/O 01/10/17 01/10/17 01/10/17 01/11/17 01/11/17 01/11/17 07:00 15:00 23:00 07:00 15:00 23:00 Intake Total 96 ml 50 ml 240 ml 100 ml Output Total 300 ml 325 ml 275 ml 200 ml Balance -204 ml -275 ml -35 ml -100 ml Intake Oral 240 ml 100 ml IV Total 96 ml 50 ml Output Urine Total 300 ml 325 ml 275 ml 200 ml # Bowel Movements 0 0 1 0 Result Diagram: 01/11/17 0324 01/11/17 0324 Imaging Last Impressions Renal Ultrasound 01/09/17 0000 Signed Impressions: Service Date/Time: December 17:33 - CONCLUSION: 6.3 cm right kidney upper pole cystic complex mass require further evaluation to exclude solid mass such as renal cell tumor. Gallbladder containing sludge with thickened wall at 5 mm.. Yusuf Caro MD Chest X-Ray 01/09/17 0000 Signed Impressions: Service Date/Time: December 17:30 - CONCLUSION: Persistent interstitial prominence in the medial lower lungs, stable from prior. Gerald Murcia MD Lumbar Spine X-Ray 01/07/17 0000 Signed Impressions: Service Date/Time: Saturday, January 07, 2017 11:17 - CONCLUSION: Lateral fluoroscopic images during placement of plate and screws with intervertebral disc device at what appears to be L3-4. Luis Vicente MD Objective Remarks GENERAL: This is a well-nourished, well-developed patient, in no apparent distress. CARDIOVASCULAR: Regular rate and regular rhythm without murmurs, gallops, or rubs. RESPIRATORY: Clear to auscultation. Breath sounds equal bilaterally. No wheezes , rales, or rhonchi. GASTROINTESTINAL: Abdomen soft, non-tender, nondistended. Normal, active bowel sounds MUSCULOSKELETAL: Extremities without clubbing, cyanosis, or edema. NEURO: awake and alert- oriented to person, place and partly to time. Procedures cardiac cath. Medications and IVs Current Medications Sodium Chloride (NS 250 ml Inj) 250 ml @ As Directed STK-MED ONCE .ROUTE Last administered on 01/07/17 09:00; Start 01/07/17 at 08:01; Stop 01/07/17 at 08:02 ; Status DC Vancomycin HCl 1000 mg 1,000 mg STK-MED ONCE .ROUTE Last administered on 09:00; Start 01/07/17 at 08:01; Stop 01/07/17 at 08:02; Status DC Lactated Ringer's 1,000 ml @ 30 mls/hr Q24H IV ; Start 01/07/17 at 08:30; Stop 01/07/17 at 14:47; Status DC Sodium Chloride (NS 500 ml Inj) 500 ml @ 30 mls/hr [id number] IV ; Start 01/07/17 at 08:30; Stop 01/07/17 at 14:47; Status DC Insulin Human Regular (NovoLIN R INJ) See Protocol Table ... UNSCH X1 PRN SQ SEE PROTOCOL; Start 01/07/17 at 08:30; Stop 01/08/17 at 08:29; Status DC Metoprolol Tartrate (Lopressor) 25 mg UNSCH X1 PRN PO SEE LABEL COMMENTS; Start 01/07/17 at 08:30; Stop 01/08/17 at 05:29; Status DC Povidone Iodine 1 applic 1 applic ONCE TOP ; Start 01/07/17 at 08:30; Stop 01/10 at 08:29; Status DC Cefazolin Sodium/ Dextrose 50 ml @ 100 mls/hr GENERAL SUPERVISOR IV Last administered on 01/07/17 10:38; Start 01/07/17 at 08:30; Stop 01/10/17 at 08:29; Status DC Vancomycin HCl/ Sodium Chloride (Vancomycin Inj/ NS 250 ml Inj) 250 ml @ 250 mls/hr GENERAL SUPERVISOR IV ; Start 01/07/17 at 08:30; Stop 01/10/17 at 08:29; Status DC Gentamicin Sulfate (Gentamicin Inj) 240 mg STK-MED ONCE .ROUTE Last administered on 01/07/17 11:11; Start 01/07/17 at 08:41; Stop 01/07/17 at 08:42 ; Status DC Gelatin (Gelfoam 100 Top) 1 foam STK-MED ONCE .ROUTE ; Start 01/07/17 at 08:59; Stop 01/07/17 at 09:00; Status DC Bupivacaine HCl/ Epinephrine Bitart (Marcaine-Epi Pf 0.25% Inj) 30 ml STK-MED ONCE .ROUTE Last administered on 01/07/17 11:11; Start 01/07/17 at 08:59; Stop 01/07/17 at 09:00; Status DC Hydromorphone HCl (Dilaudid Pf Inj) 2 mg STK-MED ONCE .ROUTE ; Start 01/07/17 at 10:44; Stop 01/07/17 at 10:45; Status DC Acetaminophen (Ofirmev Inj) 1,000 mg STK-MED ONCE IV ; Start 01/07/17 at 10:45; Stop 01/07/17 at 10:46; Status DC Carvedilol (Coreg) 3.125 mg BID PO Last administered on 01/10/17 20:16; Start 01/07/17 at 21:00 Clonazepam (KlonoPIN) 0.5 mg HS PO Last administered on 01/10/17 20:15; Start 01/07/17 at 21:00 Fluticasone Propionate (Flonase Blu Spr) 1 spray BID PRN EACH NARE ALLERGIES; Start 01/07/17 at 13:45 Furosemide (Lasix) 10 mg BID PO ; Start 01/07/17 at 21:00; Stop 01/07/17 at 22: 22; Status DC Isosorbide Mononitrate (Imdur) 60 mg DAILY PO ; Start 01/08/17 at 09:00; Stop at 09:00; Status DC Levothyroxine Sodium (Synthroid) 125 mcg HS PO Last administered on 01/10/17 20:15; Start 01/07/17 at 21:00 Potassium Chloride (KCl 40 Meq/30 ml Liq) 5 meq BID PO Last administered on 20:15; Start 01/07/17 at 21:00 Pravastatin Sodium (Pravachol) 80 mg HS PO Last administered on 01/10/17 20:16 ; Start 01/07/17 at 21:00 Sertraline HCl 50 mg 50 mg HS PO Last administered on 01/10/17 20:15; Start at 21:00 Lactated Ringer's (Lr 1000 ml Inj) 1,000 ml @ 80 mls/hr [id number] IV Last administered on 01/07/17 13:41; Start 01/07/17 at 13:41; Stop 01/07/17 at 21:56 ; Status DC IV Flush (NS Flush) 2 ml UNSCH PRN IVF FLUSH AFTER USING IV ACCESS; Start 01/07 at 13:45 IV Flush (NS Flush) 2 ml BID IVF Last administered on 01/10/17 20:16; Start at 21:00 Miscellaneous Information STAT ONCE XX ; Start 01/07/17 at 13:45; Stop at 14:19; Status DC Cefazolin Sodium/ Sodium Chloride (Ancef Inj/NS Inj) 100 ml @ 200 mls/hr Q8H IV Last administered on 01/08/17 09:46; Start 01/07/17 at 18:00; Stop at 10:29; Status DC Acetaminophen/ Hydrocodone Bitart ([place] 7.5-325 Mg) 1 tab Q4H PRN PO PAIN SCALE 1 TO 5; Start 01/07/17 at 13:45 Acetaminophen/ Hydrocodone Bitart ([place] 7.5-325 Mg) 2 tab Q6H PRN PO PAIN SCALE 6 TO 10 Last administered on 01/09/17 22:26; Start 01/07/17 at 13:45 Ondansetron HCl (Zofran Inj) 4 mg Q6H PRN IV NAUSEA OR VOMITING; Start at 13:45 Docusate Sodium (Colace) 100 mg BID PO Last administered on 01/10/17 20:16; Start 01/08/17 at 21:00 Al Hydrox/Mg Hydrox/Simethicone (Mag-Al Plus Susp Liq) 30 ml Q6H PRN PO INDIGESTION; Start 01/07/17 at 13:45 Zolpidem Tartrate (Ambien) 5 mg HS PRN PO SLEEP; Start 01/07/17 at 21:00 Bisacodyl (Dulcolax Supp) 10 mg DAILY PRN [place] CONSTIPATION Last administered on 01/10/17 17:15; Start 01/07/17 at 13:45 Sodium Biphosphate/ Sodium Phosphate (Fleets Enema (Adult)) 133 ml DAILY PRN [place] CONSTIPATION; Start 01/07/17 at 13:45 Naloxone HCl (Narcan Inj) 0.4 mg UNSCH PRN IV RESPIRATORY RATE LESS THAN 10; Start 01/07/17 at 13:45 Morphine Sulfate (Morphine 1 Mg/ ml FURNITURE STAINER) 30 mg UNSCH IV Last administered on 14:52; Start 01/07/17 at 13:45; Stop 01/08/17 at 07:55; Status DC FURNITURE STAINER Dosage Infused (Pha) 1 Q8HR .XX ; Start 01/07/17 at 14:00; Stop 01/08/17 at 07:55; Status DC Morphine Sulfate (Morphine Inj) 5 mg Q4H PRN IV PUSH PAIN SCALE 7 TO 10; Start 01/07/17 at 13:45 Magnesium Hydroxide (Milk Of Magnesia Liq) 30 ml BID PO Last administered on 08:49; Start 01/07/17 at 21:00 Morphine Sulfate (Morphine 1 Mg/ ml FURNITURE STAINER) 30 mg STK-MED ONCE .ROUTE ; Start 01/07 at 14:14; Stop 01/07/17 at 14:15; Status DC Fentanyl Citrate (fentaNYL INJ) 250 mcg STK-MED ONCE .ROUTE ; Start 01/07/17 at 14:30; Stop 01/07/17 at 14:31; Status DC Fentanyl Citrate (fentaNYL INJ) 100 mcg STK-MED ONCE .ROUTE ; Start 01/07/17 at 14:30; Stop 01/07/17 at 14:31; Status DC Ondansetron HCl (*ZOFRAN INJ PERIprocedural ONLY) 4 mg STK-MED ONCE .ROUTE Last administered on 01/07/17 19:05; Start 01/07/17 at 19:05; Stop 01/07/17 at 19:06; Status DC Labetalol HCl (*TRANDATE INJ PERIprocedural Use ONLY) 100 mg STK-MED ONCE .ROUTE Last administered on 01/07/17 19:09; Start 01/07/17 at 19:09; Stop at 19:10; Status DC Metoprolol Tartrate (Lopressor Inj) 5 mg STK-MED ONCE .ROUTE Last administered on 01/07/17 19:18; Start 01/07/17 at 19:18; Stop 01/07/17 at 19:19; Status DC Nitroglycerin (Nitrostat Sl (Adm Override)) 0.4 mg STK-MED ONCE SL Last administered on 01/07/17 19:35; Start 01/07/17 at 19:35; Stop 01/07/17 at 19:36 ; Status DC Nitroglycerin (Nitrostat Sl) 0.4 mg Q5M PRN SL CHEST PAIN Last administered on 01/08/17 08:37; Start 01/07/17 at 20:45 Furosemide (Lasix Inj) 40 mg STK-MED ONCE .ROUTE ; Start 01/07/17 at 21:52; Stop 01/07/17 at 21:53; Status DC Furosemide (Lasix Inj) 40 mg ONCE ONCE IV PUSH Last administered on 01/07/17 22:00; Start 01/07/17 at 22:00; Stop 01/07/17 at 22:01; Status DC Furosemide 40 mg 40 mg BID@09,18 IV PUSH Last administered on 01/08/17 08:39; Start 01/08/17 at 09:00; Stop 01/08/17 at 09:00; Status DC Heparin Sodium/ Dextrose (Heparin-D5W Inj) 250 ml @ 0 mls/hr TITRATE IV ; Start 01/08/17 at 05:30; Stop 01/08/17 at 08:50; Status DC Nitroglycerin (Nitroglycerin 2% Oint) 1 inch Q6H TOPICAL Last administered on 20:19; Start 01/08/17 at 09:00 Furosemide (Lasix) 40 mg DAILY PO Last administered on 01/09/17 08:57; Start 01/09/17 at 09:00 Metoprolol Tartrate (Lopressor) 25 mg Q12HR PO Last administered on 01/09/17 20:02; Start 01/08/17 at 09:00; Stop 01/10/17 at 08:21; Status DC Propofol (Diprivan 200 Mg/20 ml Inj) 200 mg STK-MED ONCE IV ; Start 01/07/17 at 11:50; Stop 01/08/17 at 11:51; Status DC Ephedrine Sulfate (ePHEDrine/NS 25 MG/5 ML SYR) 25 mg STK-MED ONCE IV ; Start at 11:50; Stop 01/08/17 at 11:51; Status DC Neostigmine Methylsulfate (Prostigmin Inj) 10 mg STK-MED ONCE IV PUSH ; Start at 11:50; Stop 01/08/17 at 11:51; Status DC Neostigmine Methylsulfate (Prostigmin Inj) 3 mg STK-MED ONCE IV ; Start at 11:50; Stop 01/08/17 at 11:51; Status DC Phenylephrine HCl (Neosynephrine/ NS 1000 Mcg/10ml Syr) 2,000 mcg STK-MED ONCE IV ; Start 01/07/17 at 11:50; Stop 01/08/17 at 11:51; Status DC Ondansetron HCl 4 mg 4 mg STK-MED ONCE IV PUSH ; Start 01/07/17 at 11:50; Stop 01/08/17 at 11:52; Status DC Lactated Ringer's 1,000 ml @ As Directed STK-MED ONCE IV ; Start 01/07/17 at 11 :50; Stop 01/08/17 at 11:52; Status DC Parenteral Electrolytes (Normosol R Inj) 1,000 ml @ As Directed STK-MED ONCE IV ; Start 01/07/17 at 11:50; Stop 01/08/17 at 11:52; Status DC Furosemide (Lasix Inj) 20 mg ONCE ONCE IV PUSH Last administered on 01/09/17 20:02; Start 01/09/17 at 16:45; Stop 01/09/17 at 16:50; Status DC Epinephrine HCl (EPINEPHrine (1:10,000) INJ) 1 mg STK-MED ONCE .ROUTE ; Start at 09:25; Stop 01/10/17 at 09:26; Status DC Atropine Sulfate (Atropine Inj) 1 mg STK-MED ONCE .ROUTE ; Start 01/10/17 at 09: 25; Stop 01/10/17 at 09:26; Status DC Lidocaine HCl 100 mg 100 mg STK-MED ONCE .ROUTE ; Start 01/10/17 at 09:25; Stop 01/10/17 at 09:26; Status DC Heparin Sodium/ Sodium Chloride (Heparin-NS/Pf Inj) 500 ml @ As Directed STK- MED ONCE .ROUTE ; Start 01/10/17 at 10:00; Stop 01/10/17 at 10:01; Status DC Midazolam HCl (Versed Inj) 2 mg STK-MED ONCE .ROUTE Last administered on 10:15; Start 01/10/17 at 10:03; Stop 01/10/17 at 10:04; Status DC Fentanyl Citrate (fentaNYL INJ) 100 mcg STK-MED ONCE .ROUTE Last administered on 01/10/17 10:16; Start 01/10/17 at 10:03; Stop 01/10/17 at 10:04; Status DC Heparin Sodium (Porcine) (Heparin Inj) 10,000 units STK-MED ONCE .ROUTE Last administered on 01/10/17 10:27; Start 01/10/17 at 10:03; Stop 01/10/17 at 10:04 ; Status DC Bivalirudin (Angiomax Inj) 250 mg STK-MED ONCE .ROUTE Last administered on 01/10 10:49; Start 01/10/17 at 10:47; Stop 01/10/17 at 10:48; Status DC Sterile Water (Sterile Water For Inj) 10 ml STK-MED ONCE .ROUTE ; Start at 10:48; Stop 01/10/17 at 10:49; Status DC Clopidogrel Bisulfate (Plavix) 600 mg STK-MED ONCE .ROUTE Last administered on 01/10/17 11:15; Start 01/10/17 at 10:56; Stop 01/10/17 at 10:57; Status DC Aspirin (Ecotrin Ec) 81 mg DAILY PO Last administered on 01/10/17 11:57; Start 01/10/17 at 11:15 Clopidogrel Bisulfate (Plavix) 600 mg NOW ONCE PO ; Start 01/10/17 at 11:15; Stop 01/10/17 at 11:33; Status DC Clopidogrel Bisulfate (Plavix) 75 mg DAILY PO ; Start 01/11/17 at 09:00 Bacitracin (Bacitracin Oint Packet) 0.9 gm ONCE ONCE TOP Last administered on 01/10/17 16:55; Start 01/10/17 at 11:30; Stop 01/10/17 at 11:31; Status DC Lidocaine HCl (Xylocaine 2% Jelly) 1 applic UNSCH X1 PRN TOP CATHETER INSERTION ; Start 01/10/17 at 11:15; Stop 01/11/17 at 11:14 Miscellaneous Information 1 1 ONCE ONCE XX Last administered on 01/10/17 11: 15; Start 01/10/17 at 11:15; Stop 01/10/17 at 11:29; Status DC Bivalirudin/ Sodium Chloride (Angiomax Inj/NS Inj) 50 ml @ 0 mls/hr Q0M IV ; Start 01/10/17 at 11:07; Stop 01/10/17 at 15:06; Status DC Iohexol (OMNIPAQUE 350 INJ (Territory Sales Representative)) 100 ml STK-MED ONCE OTHER ; Start at 10:18; Stop 01/10/17 at 12:34; Status DC A/P Assessment and Plan A/P -Acute Non-STEMI with history of CAD s/p cardiac cath; continue aspirin, plavix, statin and BB- echo with EF 25-30%; case management consulted for life-vest- -lumbar spinal stenosis- s/p underwent bilateral laminectomy from L3-L4, left laminectomy L4-L5, lateral recess decompression, subtotal facets resection, posterior spinal fusion L3-L4, PLIF L3-L4, posterior segmental spinal instrumentation L3-L4. continue PT and pain control. ortho following. -JAZMINE on CKD - improved -Hyperlipidemia- continue statin -A. fib Xarelto has been stop a week before the surgery off anticoagulation for now; will consider resuming anticoagulation after 4-6 weeks of aspirin and plavix- per cardiology -Left carotid endarterectomy- continue aspirin, plavix and statin. -possible UTI- start antibiotic and follow the culture -COPD- with no exacerbation- neb treatment as needed. -Hypothyroidism; continue synthroid -right renal mass- f/u as outpatient. -History of prostate cancer status post radiation and seed placement transfer to telemetry. d/w the RN. Discharge Planning dc planning to SNF early this week and when life vest is available. d/w the patient's . Elian Clemente MD Jan 11, 2017 10:22 -Continue close monitoring in ICU, 5 beats of V. tach cardiology following Continue nitroglycerin 2-D echo reviewed by me, EF 25-30% Elian Clemente MD Jan 11, 2017 10:22
[2017-01-11] MEDS: CLOPIDOGREL 75 MG TAB PO SCH (10:35)
[2017-01-11] MEDS: ASPIRIN EC 81 MG TABEC PO SCH (10:35)
[2017-01-11] MEDS: FUROSEMIDE 40 MG TAB PO SCH (10:35)
[2017-01-11] MEDS: MAGNESIUM HYDROXIDE SUSP 30 ML CUP PO SCH ×2 (10:35→21:05)
[2017-01-11] MEDS: POTASSIUM CL 40 MEQ/30 ML LIQ UDC PO SCH ×2 (10:35→21:07)
[2017-01-11] MEDS: DOCUSATE SODIUM 100 MG CAP PO SCH ×2 (10:35→21:05)
[2017-01-11] MEDS: CARVEDILOL 3.125 MG TAB PO SCH ×2 (10:35→21:07)
[2017-01-11] MEDS ORDERED: RESP: ALBUTEROL 1.25 MG/3 ML NEB (PRN) NEB (10:45)
--- NOTE | 2017-01-11 11:13 | PD.ORT.PN ---
Subjective Subjective Remarks Patient comfortable. Pain controlled. NAD. Objective Vitals Vital Signs Date Time Temp Pulse Resp B/P Pulse Ox O2 Delivery O2 Flow Rate FiO2 01/11/17 08:00 97.9 81 23 117/86 98 01/11/17 07:00 98 Nasal Cannula 4.00 01/11/17 07:00 83 01/11/17 04:00 98.0 66 20 116/70 98 01/11/17 00:00 98.0 77 19 115/56 96 01/10/17 23:00 80 01/10/17 20:00 92 Nasal Cannula 4.00 01/10/17 20:00 97.1 82 22 121/58 92 01/10/17 19:07 94 01/10/17 16:00 98.4 79 22 96/56 93 01/10/17 15:00 86 01/10/17 12:00 98.3 81 18 106/63 94 01/10/17 11:26 98.3 81 18 106/63 94 I/O 01/10/17 01/10/17 01/10/17 01/11/17 01/11/17 01/11/17 07:00 15:00 23:00 07:00 15:00 23:00 Intake Total 96 ml 50 ml 240 ml 100 ml Output Total 300 ml 325 ml 275 ml 200 ml Balance -204 ml -275 ml -35 ml -100 ml Intake Oral 240 ml 100 ml IV Total 96 ml 50 ml Output Urine Total 300 ml 325 ml 275 ml 200 ml # Bowel Movements 0 0 1 0 Result Diagram: 01/11/17 0324 01/11/17 0324 Procedures Bilateral laminectomy L34, Laminectomy L45, Posterior spinal fusion with segmental instrumentation L34, interbody cage L34, bone graft. 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 HNP L3 4 extruded. Bilateral laminectomy L3 4 and L4 5, posterior spinal fusion L3 4, cage, bone graft: POD #4 Postop cardiac ischemia with abnormal enzymes. UTI - urology involved PLAN: Out of bed when cleared by cardiology When out of bed, brace full-time Daily dressing change, dry Probable discharge to SNF when cleared by cardiology. From our standpoint we will defer to medical for discharge recommendations/timing Meds for pain are written Anticoagulation per medical. Patient was on Xarelto 20 mg daily before surgery. Okay by me for Xarelto 10 mg daily until 1 week after surgery and then can increase to preoperative dose. Would prefer low-dose anticoagulation, if necessary due to recent lumbar spine surgery -Dr. Aguirre evaluated and spoke with patient August Velázquez Jan 11, 2017 11:13
[2017-01-11] MEDS: cefTRIAXone INJ 1,000 MG in SODIUM CHLORIDE 0.9% INJ 100 ML IV SCH (12:48)
--- NOTE | 2017-01-11 15:20 | PD.CARD.PN ---
Subjective Subjective Remarks Mild left upper parasternal chest burning for past hour or so. No dyspnea, nausea, dizziness, palpitations. Objective Medications Item Value Date Time Clopidogrel 75 mg 01/11/17 0900 Bisulfate DAILY/PO 01/11/17 1035 (Plavix) Aspirin 81 mg 01/10/17 1115 (Ecotrin Ec) DAILY/PO 01/11/17 1035 Furosemide 40 mg 01/09/17 0900 (Lasix) DAILY/PO 01/11/17 1035 Nitroglycerin 1 inch 01/08/17 0900 (Nitroglycerin Q6H/TOPICAL 01/11/17 1036 2% Oint) Carvedilol 3.125 mg 01/07/17 2100 (Coreg) BID/PO 01/11/171034 Pravastatin Sodium 80 mg 01/07/172099 (Pravachol) HS/PO 01/10/172015 Potassium Chloride 5 meq 01/07/172099 (KCl 40 Meq/30 BID/PO 01/11/17 1035 ml Liq) Nitroglycerin 0.4 mg 01/07/17 2045 (Nitrostat Sl) Q5M PRN/SL 01/08/17 0837 Vital Signs / I&O Vital Signs Date Time Temp Pulse Resp B/P Pulse Ox O2 Delivery O2 Flow Rate FiO2 01/11/17 08:00 97.9 81 23 117/86 98 01/11/17 07:00 98 Nasal Cannula 4.00 01/11/17 07:00 83 01/11/17 04:00 98.0 66 20 116/70 98 01/11/17 00:00 98.0 77 19 115/56 96 01/10/17 23:00 80 01/10/17 20:00 92 Nasal Cannula 4.00 01/10/17 20:00 97.1 82 22 121/58 92 01/10/17 19:07 94 01/10/17 16:00 98.4 79 22 96/56 93 I/O 01/10/17 01/10/17 01/10/17 01/11/17 01/11/17 01/11/17 07:00 15:00 23:00 07:00 15:00 23:00 Intake Total 96 ml 50 ml 240 ml 100 ml Output Total 300 ml 325 ml 275 ml 200 ml Balance -204 ml -275 ml -35 ml -100 ml Intake Oral 240 ml 100 ml IV Total 96 ml 50 ml Output Urine Total 300 ml 325 ml 275 ml 200 ml # Bowel Movements 0 0 1 0 Physical Exam GENERAL: Well developed, well nourished. No acute distress. HEENT: Jugular venous pressure is normal. CHEST: Lungs clear to auscultation bilaterally. Unlabored respiratory effort. CARDIAC: Regular rate and rhythm without S3, S4, or murmur. ABDOMEN: Soft, nontender, no hepatosplenomegaly. Bowel sounds present. EXTREMITIES: No clubbing, cyanosis, or edema. Laboratory Laboratory Tests Test 01/11/17 03:24 White Blood Count 12.0 TH/MM3 Red Blood Count 3.49 MIL/MM3 Hemoglobin 10.5 GM/DL Hematocrit 32.3 % Mean Corpuscular Volume 92.5 FL Mean Corpuscular Hemoglobin 30.2 PG Mean Corpuscular Hemoglobin 32.7 % Concent Red Cell Distribution Width 14.5 % Platelet Count 179 TH/MM3 Mean Platelet Volume 8.4 FL Neutrophils (%) (Auto) 80.0 % Lymphocytes (%) (Auto) 5.7 % Monocytes (%) (Auto) 13.3 % Eosinophils (%) (Auto) 0.7 % Basophils (%) (Auto) 0.3 % Neutrophils # (Auto) 9.6 TH/MM3 Lymphocytes # (Auto) 0.7 TH/MM3 Monocytes # (Auto) 1.6 TH/MM3 Eosinophils # (Auto) 0.1 TH/MM3 Basophils # (Auto) 0.0 TH/MM3 CBC Comment DIFF FINAL Differential Comment Sodium Level 135 MEQ/L Potassium Level 4.5 MEQ/L Chloride Level 99 MEQ/L Carbon Dioxide Level 29.3 MEQ/L Anion Gap 7 MEQ/L Blood Urea Nitrogen 42 MG/DL Creatinine 1.27 MG/DL Estimat Glomerular Filtration 54 ML/MIN Rate Random Glucose 112 MG/DL Calcium Level 8.4 MG/DL Total Creatine Kinase 179 U/L B-Type Natriuretic Peptide 1505 PG/ML Triglycerides Level 112 MG/DL Cholesterol Level 96 MG/DL LDL Cholesterol 43 MG/DL HDL Cholesterol 30.5 MG/DL Cholesterol/HDL Ratio 3.14 RATIO Assessment and Plan Problem List: (1) NSTEMI (non-ST elevated myocardial infarction) Assessment and Plan: Mild recurrent chest discomfort this afternoon. Will recheck cardiac enzymes, administer morphine, additional nitrates. (2) Cardiomyopathy Assessment and Plan: EF 25-30% by echo. No overt CHF by current exam. Slightly increased BUN/creat, ?from contrast, ?volume depletion. Rec cont beta carol, oral furosemide, f/u BMP in am. Code Status full code Discussed Condition With patient Problem Qualifiers (1) Cardiomyopathy: Qualified Code: I25.5 - Ischemic cardiomyopathy Waqar Salazar MD Jan 11, 2017 15:20
[2017-01-11] MEDS ORDERED: MORPHINE SULFATE 8 MG/ML INJ IV PUSH ONE (16:00)
[2017-01-11] MEDS ORDERED: MORPHINE SULFATE 8 MG/ML INJ IV PUSH PRN (16:00)
--- NOTE | 2017-01-11 16:28 | EKG ---
Date Performed: 01/11/2017 Time Performed: 15:57:00 PTAGE: 81 years EKG: ELECTRONIC VENTRICULAR PACEMAKER UNDERLYING ATRIAL FLUTTER OR ATRIAL TACHYCARDIA ABNORMAL R HYTHM ECG PREVIOUS TRACING : 01/09/2017 06.27 No significant change from previous tracing noted. DOCTOR: Waqar Salazar Interpretating Date/Time 01/11/2017 16:26:31
[2017-01-11 18:55] LABS: CREATINE KINASE 121 U/L (39-308)
[2017-01-11 19:25] LABS: CKMB 2.5 NG/ML (0.5-3.6)
[2017-01-11] MEDS: PRAVASTATIN SOD 80 MG TAB PO SCH (21:05)
[2017-01-11] MEDS: clonazePAM 0.5 MG TAB PO SCH (21:05)
[2017-01-11] MEDS: SERTRALINE HCL 50 MG TAB PO SCH (21:05)
[2017-01-11] MEDS: LEVOTHYROXINE SODIUM 125 MCG TAB PO SCH (21:06)
[2017-01-12] VITALS (11 sets, daily range): BP systolic 100–105; BP diastolic 55–72; PULSE 71–89; RESP 16–19; TEMP 97.6–98.4; O2SAT 95–100
[2017-01-12] MEDS: NITROGLYCERIN 2% OINT 1 GM PACKET TOPICAL SCH ×2 (04:10→09:25)
[2017-01-12 05:56] LABS: BICARBONATE 32.2 MEQ/L (21.0-32.0); POTASSIUM 4.5 MEQ/L (3.5-5.1)
--- NOTE | 2017-01-12 08:46 | HHI.PR ---
Subjective Remarks resting comfortably with no distress. denies chest pain or sob. sounds more alert today. d/w the RN. Objective Vitals Vital Signs Date Time Temp Pulse Resp B/P Pulse Ox O2 Delivery O2 Flow Rate FiO2 01/12/17 04:00 71 01/12/17 04:00 97.7 71 19 102/64 98 01/12/17 00:00 88 01/12/17 00:00 97.8 88 16 102/69 99 01/11/17 20:00 96.3 82 21 96/63 97 01/11/17 19:00 97 Nasal Cannula 4.00 01/11/17 16:00 98.5 92 23 118/65 97 01/11/17 15:00 92 01/11/17 12:00 98.4 78 22 100/56 98 I/O 01/11/17 01/11/17 01/11/17 01/12/17 01/12/17 01/12/17 07:00 15:00 23:00 07:00 15:00 23:00 Intake Total 100 ml 240 ml 100 ml 200 ml Output Total 200 ml 250 ml 50 ml 150 ml Balance -100 ml -10 ml 50 ml 50 ml Intake Oral 100 ml 240 ml 100 ml 200 ml Output Urine Total 200 ml 250 ml 50 ml 150 ml # Voids 1 # Bowel Movements 0 0 0 0 Result Diagram: 01/11/17 0324 01/12/17 0521 Imaging Last Impressions Renal Ultrasound 01/09/17 0000 Signed Impressions: Service Date/Time: December 17:33 - CONCLUSION: 6.3 cm right kidney upper pole cystic complex mass require further evaluation to exclude solid mass such as renal cell tumor. Gallbladder containing sludge with thickened wall at 5 mm.. Yusuf Caro MD Chest X-Ray 01/09/17 0000 Signed Impressions: Service Date/Time: December 17:30 - CONCLUSION: Persistent interstitial prominence in the medial lower lungs, stable from prior. Gerald Murcia MD Lumbar Spine X-Ray 01/07/17 0000 Signed Impressions: Service Date/Time: Saturday, January 07, 2017 11:17 - CONCLUSION: Lateral fluoroscopic images during placement of plate and screws with intervertebral disc device at what appears to be L3-4. Luis Vicente MD Objective Remarks GENERAL: This is a well-nourished, well-developed patient, in no apparent distress. CARDIOVASCULAR: Regular rate and regular rhythm without murmurs, gallops, or rubs. RESPIRATORY: Clear to auscultation. Breath sounds equal bilaterally. No wheezes , rales, or rhonchi. GASTROINTESTINAL: Abdomen soft, non-tender, nondistended. Normal, active bowel sounds MUSCULOSKELETAL: Extremities without clubbing, cyanosis, or edema. NEURO: awake and alert- oriented to person, place and partly to time. Procedures cardiac cath. Medications and IVs Current Medications Sodium Chloride (NS 250 ml Inj) 250 ml @ As Directed STK-MED ONCE .ROUTE Last administered on 01/07/17 09:00; Start 01/07/17 at 08:01; Stop 01/07/17 at 08:02 ; Status DC Vancomycin HCl 1000 mg 1,000 mg STK-MED ONCE .ROUTE Last administered on 09:00; Start 01/07/17 at 08:01; Stop 01/07/17 at 08:02; Status DC Lactated Ringer's 1,000 ml @ 30 mls/hr Q24H IV ; Start 01/07/17 at 08:30; Stop 01/07/17 at 14:47; Status DC Sodium Chloride (NS 500 ml Inj) 500 ml @ 30 mls/hr [id number] IV ; Start 01/07/17 at 08:30; Stop 01/07/17 at 14:47; Status DC Insulin Human Regular (NovoLIN R INJ) See Protocol Table ... UNSCH X1 PRN SQ SEE PROTOCOL; Start 01/07/17 at 08:30; Stop 01/08/17 at 08:29; Status DC Metoprolol Tartrate (Lopressor) 25 mg UNSCH X1 PRN PO SEE LABEL COMMENTS; Start 01/07/17 at 08:30; Stop 01/08/17 at 05:29; Status DC Povidone Iodine 1 applic 1 applic ONCE TOP ; Start 01/07/17 at 08:30; Stop 01/10 at 08:29; Status DC Cefazolin Sodium/ Dextrose 50 ml @ 100 mls/hr RESEARCH PHYSICIAN IV Last administered on 01/07/17 10:38; Start 01/07/17 at 08:30; Stop 01/10/17 at 08:29; Status DC Vancomycin HCl/ Sodium Chloride (Vancomycin Inj/ NS 250 ml Inj) 250 ml @ 250 mls/hr RESEARCH PHYSICIAN IV ; Start 01/07/17 at 08:30; Stop 01/10/17 at 08:29; Status DC Gentamicin Sulfate (Gentamicin Inj) 240 mg STK-MED ONCE .ROUTE Last administered on 01/07/17 11:11; Start 01/07/17 at 08:41; Stop 01/07/17 at 08:42 ; Status DC Gelatin (Gelfoam 100 Top) 1 foam STK-MED ONCE .ROUTE ; Start 01/07/17 at 08:59; Stop 01/07/17 at 09:00; Status DC Bupivacaine HCl/ Epinephrine Bitart (Marcaine-Epi Pf 0.25% Inj) 30 ml STK-MED ONCE .ROUTE Last administered on 01/07/17 11:11; Start 01/07/17 at 08:59; Stop 01/07/17 at 09:00; Status DC Hydromorphone HCl (Dilaudid Pf Inj) 2 mg STK-MED ONCE .ROUTE ; Start 01/07/17 at 10:44; Stop 01/07/17 at 10:45; Status DC Acetaminophen (Ofirmev Inj) 1,000 mg STK-MED ONCE IV ; Start 01/07/17 at 10:45; Stop 01/07/17 at 10:46; Status DC Carvedilol (Coreg) 3.125 mg BID PO Last administered on 01/11/17 21:07; Start 01/07/17 at 21:00 Clonazepam (KlonoPIN) 0.5 mg HS PO Last administered on 01/11/17 21:05; Start 01/07/17 at 21:00 Fluticasone Propionate (Flonase Blu Spr) 1 spray BID PRN EACH NARE ALLERGIES; Start 01/07/17 at 13:45 Furosemide (Lasix) 10 mg BID PO ; Start 01/07/17 at 21:00; Stop 01/07/17 at 22: 22; Status DC Isosorbide Mononitrate (Imdur) 60 mg DAILY PO ; Start 01/08/17 at 09:00; Stop at 09:00; Status DC Levothyroxine Sodium (Synthroid) 125 mcg HS PO Last administered on 01/11/17 21:06; Start 01/07/17 at 21:00 Potassium Chloride (KCl 40 Meq/30 ml Liq) 5 meq BID PO Last administered on 21:07; Start 01/07/17 at 21:00 Pravastatin Sodium (Pravachol) 80 mg HS PO Last administered on 01/11/17 21:05 ; Start 01/07/17 at 21:00 Sertraline HCl 50 mg 50 mg HS PO Last administered on 01/11/17 21:05; Start at 21:00 Lactated Ringer's (Lr 1000 ml Inj) 1,000 ml @ 80 mls/hr [id number] IV Last administered on 01/07/17 13:41; Start 01/07/17 at 13:41; Stop 01/07/17 at 21:56 ; Status DC IV Flush (NS Flush) 2 ml UNSCH PRN IVF FLUSH AFTER USING IV ACCESS; Start 01/07 at 13:45 IV Flush (NS Flush) 2 ml BID IVF Last administered on 01/11/17 23:57; Start at 21:00 Miscellaneous Information STAT ONCE XX ; Start 01/07/17 at 13:45; Stop at 14:19; Status DC Cefazolin Sodium/ Sodium Chloride (Ancef Inj/NS Inj) 100 ml @ 200 mls/hr Q8H IV Last administered on 01/08/17 09:46; Start 01/07/17 at 18:00; Stop at 10:29; Status DC Acetaminophen/ Hydrocodone Bitart (Loiza 7.5-325 Mg) 1 tab Q4H PRN PO PAIN SCALE 1 TO 5; Start 01/07/17 at 13:45 Acetaminophen/ Hydrocodone Bitart (Loiza 7.5-325 Mg) 2 tab Q6H PRN PO PAIN SCALE 6 TO 10 Last administered on 01/09/17 22:26; Start 01/07/17 at 13:45 Ondansetron HCl (Zofran Inj) 4 mg Q6H PRN IV NAUSEA OR VOMITING; Start at 13:45 Docusate Sodium (Colace) 100 mg BID PO Last administered on 01/11/17 21:05; Start 01/08/17 at 21:00 Al Hydrox/Mg Hydrox/Simethicone (Mag-Al Plus Susp Liq) 30 ml Q6H PRN PO INDIGESTION; Start 01/07/17 at 13:45 Zolpidem Tartrate (Ambien) 5 mg HS PRN PO SLEEP; Start 01/07/17 at 21:00 Bisacodyl (Dulcolax Supp) 10 mg DAILY PRN ID CONSTIPATION Last administered on 01/10/17 17:15; Start 01/07/17 at 13:45 Sodium Biphosphate/ Sodium Phosphate (Fleets Enema (Adult)) 133 ml DAILY PRN ID CONSTIPATION; Start 01/07/17 at 13:45 Naloxone HCl (Narcan Inj) 0.4 mg UNSCH PRN IV RESPIRATORY RATE LESS THAN 10; Start 01/07/17 at 13:45 Morphine Sulfate (Morphine 1 Mg/ ml TAPING SUPERVISOR) 30 mg UNSCH IV Last administered on 14:52; Start 01/07/17 at 13:45; Stop 01/08/17 at 07:55; Status DC TAPING SUPERVISOR Dosage Infused (Pha) 1 Q8HR .XX ; Start 01/07/17 at 14:00; Stop 01/08/17 at 07:55; Status DC Morphine Sulfate (Morphine Inj) 5 mg Q4H PRN IV PUSH PAIN SCALE 7 TO 10; Start 01/07/17 at 13:45 Magnesium Hydroxide (Milk Of Magnesia Liq) 30 ml BID PO Last administered on 21:05; Start 01/07/17 at 21:00 Morphine Sulfate (Morphine 1 Mg/ ml TAPING SUPERVISOR) 30 mg STK-MED ONCE .ROUTE ; Start 01/07 at 14:14; Stop 01/07/17 at 14:15; Status DC Fentanyl Citrate (fentaNYL INJ) 250 mcg STK-MED ONCE .ROUTE ; Start 01/07/17 at 14:30; Stop 01/07/17 at 14:31; Status DC Fentanyl Citrate (fentaNYL INJ) 100 mcg STK-MED ONCE .ROUTE ; Start 01/07/17 at 14:30; Stop 01/07/17 at 14:31; Status DC Ondansetron HCl (*ZOFRAN INJ PERIprocedural ONLY) 4 mg STK-MED ONCE .ROUTE Last administered on 01/07/17 19:05; Start 01/07/17 at 19:05; Stop 01/07/17 at 19:06; Status DC Labetalol HCl (*TRANDATE INJ PERIprocedural Use ONLY) 100 mg STK-MED ONCE .ROUTE Last administered on 01/07/17 19:09; Start 01/07/17 at 19:09; Stop at 19:10; Status DC Metoprolol Tartrate (Lopressor Inj) 5 mg STK-MED ONCE .ROUTE Last administered on 01/07/17 19:18; Start 01/07/17 at 19:18; Stop 01/07/17 at 19:19; Status DC Nitroglycerin (Nitrostat Sl (Adm Override)) 0.4 mg STK-MED ONCE SL Last administered on 01/07/17 19:35; Start 01/07/17 at 19:35; Stop 01/07/17 at 19:36 ; Status DC Nitroglycerin (Nitrostat Sl) 0.4 mg Q5M PRN SL CHEST PAIN Last administered on 01/08/17 08:37; Start 01/07/17 at 20:45 Furosemide (Lasix Inj) 40 mg STK-MED ONCE .ROUTE ; Start 01/07/17 at 21:52; Stop 01/07/17 at 21:53; Status DC Furosemide (Lasix Inj) 40 mg ONCE ONCE IV PUSH Last administered on 01/07/17 22:00; Start 01/07/17 at 22:00; Stop 01/07/17 at 22:01; Status DC Furosemide 40 mg 40 mg BID@09,18 IV PUSH Last administered on 01/08/17 08:39; Start 01/08/17 at 09:00; Stop 01/08/17 at 09:00; Status DC Heparin Sodium/ Dextrose (Heparin-D5W Inj) 250 ml @ 0 mls/hr TITRATE IV ; Start 01/08/17 at 05:30; Stop 01/08/17 at 08:50; Status DC Nitroglycerin (Nitroglycerin 2% Oint) 1 inch Q6H TOPICAL Last administered on 10:36; Start 01/08/17 at 09:00; Stop 01/11/17 at 15:21; Status DC Furosemide (Lasix) 40 mg DAILY PO Last administered on 01/11/17 10:35; Start 01/09/17 at 09:00 Metoprolol Tartrate (Lopressor) 25 mg Q12HR PO Last administered on 01/09/17 20:02; Start 01/08/17 at 09:00; Stop 01/10/17 at 08:21; Status DC Propofol (Diprivan 200 Mg/20 ml Inj) 200 mg STK-MED ONCE IV ; Start 01/07/17 at 11:50; Stop 01/08/17 at 11:51; Status DC Ephedrine Sulfate (ePHEDrine/NS 25 MG/5 ML SYR) 25 mg STK-MED ONCE IV ; Start at 11:50; Stop 01/08/17 at 11:51; Status DC Neostigmine Methylsulfate (Prostigmin Inj) 10 mg STK-MED ONCE IV PUSH ; Start at 11:50; Stop 01/08/17 at 11:51; Status DC Neostigmine Methylsulfate (Prostigmin Inj) 3 mg STK-MED ONCE IV ; Start at 11:50; Stop 01/08/17 at 11:51; Status DC Phenylephrine HCl (Neosynephrine/ NS 1000 Mcg/10ml Syr) 2,000 mcg STK-MED ONCE IV ; Start 01/07/17 at 11:50; Stop 01/08/17 at 11:51; Status DC Ondansetron HCl 4 mg 4 mg STK-MED ONCE IV PUSH ; Start 01/07/17 at 11:50; Stop 01/08/17 at 11:52; Status DC Lactated Ringer's 1,000 ml @ As Directed STK-MED ONCE IV ; Start 01/07/17 at 11 :50; Stop 01/08/17 at 11:52; Status DC Parenteral Electrolytes (Normosol R Inj) 1,000 ml @ As Directed STK-MED ONCE IV ; Start 01/07/17 at 11:50; Stop 01/08/17 at 11:52; Status DC Furosemide (Lasix Inj) 20 mg ONCE ONCE IV PUSH Last administered on 01/09/17 20:02; Start 01/09/17 at 16:45; Stop 01/09/17 at 16:50; Status DC Epinephrine HCl (EPINEPHrine (1:10,000) INJ) 1 mg STK-MED ONCE .ROUTE ; Start at 09:25; Stop 01/10/17 at 09:26; Status DC Atropine Sulfate (Atropine Inj) 1 mg STK-MED ONCE .ROUTE ; Start 01/10/17 at 09: 25; Stop 01/10/17 at 09:26; Status DC Lidocaine HCl 100 mg 100 mg STK-MED ONCE .ROUTE ; Start 01/10/17 at 09:25; Stop 01/10/17 at 09:26; Status DC Heparin Sodium/ Sodium Chloride (Heparin-NS/Pf Inj) 500 ml @ As Directed STK- MED ONCE .ROUTE ; Start 01/10/17 at 10:00; Stop 01/10/17 at 10:01; Status DC Midazolam HCl (Versed Inj) 2 mg STK-MED ONCE .ROUTE Last administered on 10:15; Start 01/10/17 at 10:03; Stop 01/10/17 at 10:04; Status DC Fentanyl Citrate (fentaNYL INJ) 100 mcg STK-MED ONCE .ROUTE Last administered on 01/10/17 10:16; Start 01/10/17 at 10:03; Stop 01/10/17 at 10:04; Status DC Heparin Sodium (Porcine) (Heparin Inj) 10,000 units STK-MED ONCE .ROUTE Last administered on 01/10/17 10:27; Start 01/10/17 at 10:03; Stop 01/10/17 at 10:04 ; Status DC Bivalirudin (Angiomax Inj) 250 mg STK-MED ONCE .ROUTE Last administered on 01/10 10:49; Start 01/10/17 at 10:47; Stop 01/10/17 at 10:48; Status DC Sterile Water (Sterile Water For Inj) 10 ml STK-MED ONCE .ROUTE ; Start at 10:48; Stop 01/10/17 at 10:49; Status DC Clopidogrel Bisulfate (Plavix) 600 mg STK-MED ONCE .ROUTE Last administered on 01/10/17 11:15; Start 01/10/17 at 10:56; Stop 01/10/17 at 10:57; Status DC Aspirin (Ecotrin Ec) 81 mg DAILY PO Last administered on 01/11/17 10:35; Start 01/10/17 at 11:15 Clopidogrel Bisulfate (Plavix) 600 mg NOW ONCE PO ; Start 01/10/17 at 11:15; Stop 01/10/17 at 11:33; Status DC Clopidogrel Bisulfate (Plavix) 75 mg DAILY PO Last administered on 01/11/17 10 :35; Start 01/11/17 at 09:00 Bacitracin (Bacitracin Oint Packet) 0.9 gm ONCE ONCE TOP Last administered on 01/10/17 16:55; Start 01/10/17 at 11:30; Stop 01/10/17 at 11:31; Status DC Lidocaine HCl (Xylocaine 2% Jelly) 1 applic UNSCH X1 PRN TOP CATHETER INSERTION ; Start 01/10/17 at 11:15; Stop 01/11/17 at 11:14; Status DC Miscellaneous Information 1 1 ONCE ONCE XX Last administered on 01/10/17 11: 15; Start 01/10/17 at 11:15; Stop 01/10/17 at 11:29; Status DC Bivalirudin/ Sodium Chloride (Angiomax Inj/NS Inj) 50 ml @ 0 mls/hr Q0M IV ; Start 01/10/17 at 11:07; Stop 01/10/17 at 15:06; Status DC Iohexol (OMNIPAQUE 350 INJ (Household Appliances Salesperson)) 100 ml STK-MED ONCE OTHER ; Start at 10:18; Stop 01/10/17 at 12:34; Status DC Albuterol Sulfate 1.25 mg 1.25 mg Q4HR NEB PRN NEB SHORTNESS OF BREATH; Start 01/11/17 at 10:45 Ceftriaxone Sodium/Sodium Chloride (Rocephin Inj/NS Inj) 100 ml @ 200 mls/hr Q24H IV Last administered on 01/11/17 12:48; Start 01/11/17 at 12:00 Morphine Sulfate (Morphine Inj) 5 mg ONCE ONCE IV PUSH Last administered on 16:07; Start 01/11/17 at 16:00; Stop 01/11/17 at 16:01; Status DC Morphine Sulfate (Morphine Inj) 5 mg Q4H PRN IV PUSH CHEST PAIN; Start at 16:00 Nitroglycerin (Nitroglycerin 2% Oint) 2 inch Q6H TOPICAL Last administered on t 04:10; Start 01/11/17 at 21:00 A/P Assessment and Plan A/P -Acute Non-STEMI with history of CAD s/p cardiac cath with : -Severe three-vessel [place] coronary disease. - patent two of four coronary bypass grafts -Successful percutaneous interventions saphenous vein graft to the right coronary artery. ; continue aspirin, plavix, statin and BB- echo with EF 25-30%; case management consulted for life-vest- -lumbar spinal stenosis- s/p underwent bilateral laminectomy from L3-L4, left laminectomy L4-L5, lateral recess decompression, subtotal facets resection, posterior spinal fusion L3-L4, PLIF L3-L4, posterior segmental spinal instrumentation L3-L4. continue PT and pain control. ortho following. -JAZMINE on CKD - improved -Hyperlipidemia- continue statin -A. fib Xarelto has been stop a week before the surgery off anticoagulation for now; will consider resuming anticoagulation after 4-6 weeks of aspirin and plavix- per cardiology -Left carotid endarterectomy- continue aspirin, plavix and statin. -possible UTI- continye antibiotic . -COPD- with no exacerbation- neb treatment as needed. -Hypothyroidism; continue synthroid -right renal mass- f/u as outpatient. -History of prostate cancer status post radiation and seed placement for transfer to telemetry. d/w the RN. Discharge Planning dc planning to SNF early this week and when life vest is available. d/w the patient's . Elian Clemente MD Jan 12, 2017 08:45
[2017-01-12] MEDS: MAGNESIUM HYDROXIDE SUSP 30 ML CUP PO SCH ×2 (09:25→20:59)
[2017-01-12] MEDS: POTASSIUM CL 40 MEQ/30 ML LIQ UDC PO SCH ×2 (09:25→20:59)
[2017-01-12] MEDS: CLOPIDOGREL 75 MG TAB PO SCH (09:26)
[2017-01-12] MEDS: ASPIRIN EC 81 MG TABEC PO SCH (09:26)
[2017-01-12] MEDS: DOCUSATE SODIUM 100 MG CAP PO SCH ×2 (09:26→20:59)
[2017-01-12] MEDS: CARVEDILOL 3.125 MG TAB PO SCH ×2 (09:26→20:59)
[2017-01-12] MEDS: SODIUM CHLORIDE 0.9% FLUSH 5 ML FLUSH IVF SCH ×2 (09:27→20:59)
[2017-01-12] MEDS: FUROSEMIDE 20 MG TAB PO SCH (09:31)
[2017-01-12] MEDS: FERROUS SULFATE 325 MG (65 MG ELEMENTAL IRON) TAB PO SCH ×2 (09:31→20:59)
[2017-01-12] MEDS: RANOLAZINE 500 MG EXTENDED RELEASE TAB PO SCH ×3 (10:00→21:34)
[2017-01-12] MEDS: ISOSORBIDE MONONITRATE 60 MG TAB PO SCH ×2 (11:18→18:01)
[2017-01-12] MEDS: cefTRIAXone INJ 1,000 MG in SODIUM CHLORIDE 0.9% INJ 100 ML IV SCH (12:21)
--- NOTE | 2017-01-12 13:53 | PD.CARD.PN ---
Subjective Subjective Remarks No further chest discomfort. Mild dyspnea occasionally, at rest. No PND, dizziness, palpitations. Objective Medications Item Value Date Time Isosorbide 60 mg 01/12/17 1000 Mononitrate BID@07,18/PO 01/12/17 1118 (Imdur) Ranolazine 500 mg 01/12/17 1000 (Ranexa) Q12HR/PO Furosemide 20 mg 01/12/17 0930 (Lasix) DAILY/PO 01/12/17 0931 Clopidogrel 75 mg 01/11/17 0900 Bisulfate DAILY/PO 01/12/17 0926 (Plavix) Aspirin 81 mg 01/10/17 1115 (Ecotrin Ec) DAILY/PO 01/12/17 0926 Carvedilol 3.125 mg 01/07/17 2100 (Coreg) BID/PO 01/12/17 09 Potassium Chloride 5 meq 01/07/17 2100 (KCl 40 Meq/30 BID/PO 01/12/17 0925 ml Liq) Pravastatin Sodium 80 mg 01/07/17 2100 (Pravachol) HS/PO 01/11/17 2105 Nitroglycerin 0.4 mg 01/07/17 2045 (Nitrostat Sl) Q5M PRN/SL 01/08/17 0837 Vital Signs / I&O Vital Signs Date Time Temp Pulse Resp B/P Pulse Ox O2 Delivery O2 Flow Rate FiO2 01/12/17 12:00 98.4 84 18 105/55 95 01/12/17 11:15 95 Nasal Cannula 4.00 01/12/17 09:00 98 Nasal Cannula 4.00 01/12/17 08:00 98.0 84 19 103/62 96 01/12/17 04:00 71 01/12/17 04:00 97.7 71 19 102/64 98 01/12/17 00:00 88 01/12/17 00:00 97.8 88 16 102/69 99 01/11/17 20:00 96.3 82 21 96/63 97 01/11/17 19:00 97 Nasal Cannula 4.00 01/11/17 16:00 98.5 92 23 118/65 97 01/11/17 15:00 92 I/O 01/11/17 01/11/17 01/11/17 01/12/17 01/12/17 01/12/17 07:00 15:00 23:00 07:00 15:00 23:00 Intake Total 100 ml 240 ml 100 ml 200 ml Output Total 200 ml 250 ml 50 ml 150 ml Balance -100 ml -10 ml 50 ml 50 ml Intake Oral 100 ml 240 ml 100 ml 200 ml Output Urine Total 200 ml 250 ml 50 ml 150 ml # Voids 1 # Bowel Movements 0 0 0 0 Physical Exam GENERAL: Well developed, well nourished. No acute distress. HEENT: Jugular venous pressure is normal. CHEST: Lungs clear to auscultation bilaterally. Unlabored respiratory effort. CARDIAC: Regular rate and rhythm without S3, S4. I/ systolic murmur lower left sternal border, apex. ABDOMEN: Soft, nontender, no hepatosplenomegaly. Bowel sounds present. EXTREMITIES: No clubbing, cyanosis, or edema. Laboratory Laboratory Tests Test 01/11/17 01/12/17 17:09 05:21 Total Creatine Kinase 121 U/L 85 U/L Creatine Kinase MB 2.5 NG/ML Sodium Level 137 MEQ/L Potassium Level 4.5 MEQ/L Chloride Level 98 MEQ/L Carbon Dioxide Level 32.2 MEQ/L Anion Gap 7 MEQ/L Blood Urea Nitrogen 36 MG/DL Creatinine 1.20 MG/DL Estimat Glomerular Filtration 58 ML/MIN Rate Random Glucose 111 MG/DL Calcium Level 8.5 MG/DL Assessment and Plan Problem List: (1) NSTEMI (non-ST elevated myocardial infarction) Assessment and Plan: No further chest discomfort. Repeat CK's negative for FL. Rec continue Plavix, aspirin. Patient declining Ranexa as he was on it in the past and cost was prohibitive. (2) Cardiomyopathy Assessment and Plan: EF 25-30% by echo. No overt CHF by current exam. Rec cont beta carol, oral furosemide. Repeat BMP shows improved renal indices. Patient not sure he really wants Life Vest. Code Status full code Discussed Condition With patient Problem Qualifiers (1) Cardiomyopathy: Qualified Code: I25.5 - Ischemic cardiomyopathy Waqar Salazar MD Jan 12, 2017 13:53
--- NOTE | 2017-01-12 15:58 | PD.ORT.PN ---
Subjective Subjective Remarks Patient states having generalized weakness. States his back is feeling well. NAD. Objective Vitals Vital Signs Date Time Temp Pulse Resp B/P Pulse Ox O2 Delivery O2 Flow Rate FiO2 01/12/17 12:00 84 01/12/17 12:00 98.4 84 18 105/55 95 01/12/17 11:15 95 Nasal Cannula 4.00 01/12/17 09:00 98 Nasal Cannula 4.00 01/12/17 08:00 98.0 84 19 103/62 96 01/12/17 08:00 84 01/12/17 07:02 89 01/12/17 04:00 71 01/12/17 04:00 97.7 71 19 102/64 98 01/12/17 00:00 88 01/12/17 00:00 97.8 88 16 102/69 99 01/11/17 20:00 96.3 82 21 96/63 97 01/11/17 19:00 97 Nasal Cannula 4.00 01/11/17 16:00 98.5 92 23 118/65 97 I/O 01/11/17 01/11/17 01/11/17 01/12/17 01/12/17 01/12/17 07:00 15:00 23:00 07:00 15:00 23:00 Intake Total 100 ml 240 ml 100 ml 200 ml 240 ml Output Total 200 ml 250 ml 50 ml 150 ml 300 ml Balance -100 ml -10 ml 50 ml 50 ml -60 ml Intake Oral 100 ml 240 ml 100 ml 200 ml 240 ml Output Urine Total 200 ml 250 ml 50 ml 150 ml 300 ml # Voids 1 # Bowel Movements 0 0 0 0 3 Result Diagram: 01/11/17 0324 01/12/17 0521 Procedures Bilateral laminectomy L34, Laminectomy L45, Posterior spinal fusion with segmental instrumentation L34, interbody cage L34, bone graft. 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 HNP L3 4 extruded. Bilateral laminectomy L3 4 and L4 5, posterior spinal fusion L3 4, cage, bone graft: POD #5 Postop cardiac ischemia with abnormal enzymes. UTI - receiving IV antibiotic therapy PLAN: Out of bed when cleared by cardiology When out of bed, brace full-time Daily dressing change, dry Probable discharge to SNF when cleared by cardiology. From our standpoint we will defer to medical for discharge recommendations/timing Meds for pain are written Anticoagulation per medical. Patient was on Xarelto 20 mg daily before surgery. Okay by me for Xarelto 10 mg daily until 1 week after surgery and then can increase to preoperative dose. Would prefer low-dose anticoagulation, if necessary due to recent lumbar spine surgery -Monitor August Velázquez Jan 12, 2017 15:58
[2017-01-12] MEDS: ACETAMINOPHEN/HYDROcodone 325 MG/7.5 MG TAB PO PRN (16:37)
[2017-01-12] MEDS: PRAVASTATIN SOD 80 MG TAB PO SCH (20:59)
[2017-01-12] MEDS: SERTRALINE HCL 50 MG TAB PO SCH (20:59)
[2017-01-12] MEDS: LEVOTHYROXINE SODIUM 125 MCG TAB PO SCH (20:59)
[2017-01-12] MEDS: clonazePAM 0.5 MG TAB PO SCH (20:59)
[2017-01-13] VITALS (13 sets, daily range): BP systolic 96–110; BP diastolic 64–73; PULSE 67–90; RESP 16; TEMP 98.1–98.4; O2SAT 94–97
[2017-01-13] MEDS: ACETAMINOPHEN/HYDROcodone 325 MG/7.5 MG TAB PO PRN ×2 (04:41→14:18)
[2017-01-13] MEDS: ISOSORBIDE MONONITRATE 60 MG TAB PO SCH (06:23)
--- NOTE | 2017-01-13 07:25 | PD.CARD.PN ---
Subjective Subjective Remarks some angina overnight (Jorge Cortés) Objective Vital Signs / I&O Vital Signs Date Time Temp Pulse Resp B/P Pulse Ox O2 Delivery O2 Flow Rate FiO2 01/13/17 06:00 87 01/13/17 05:00 69 01/13/17 04:00 89 01/13/17 03:00 98.4 88 16 96/64 97 01/13/17 03:00 88 01/13/17 02:00 67 01/13/17 01:00 81 01/13/17 00:00 81 01/12/17 23:00 81 01/12/17 23:00 98.4 81 16 103/62 98 01/12/17 22:00 87 01/12/17 21:00 83 01/12/17 19:00 84 01/12/17 19:00 98.2 84 18 105/72 100 01/12/17 19:00 100 Nasal Cannula 4.00 01/12/17 16:00 85 01/12/17 16:00 97.6 85 17 100/57 97 01/12/17 12:00 84 01/12/17 12:00 98.4 84 18 105/55 95 01/12/17 11:15 95 Nasal Cannula 4.00 01/12/17 09:00 98 Nasal Cannula 4.00 01/12/17 08:00 98.0 84 19 103/62 96 01/12/17 08:00 84 I/O 01/12/17 01/12/17 01/12/17 01/13/17 01/13/17 01/13/17 07:00 15:00 23:00 07:00 15:00 23:00 Intake Total 200 ml 240 ml 240 ml Output Total 150 ml 300 ml 650 ml Balance 50 ml -60 ml -410 ml Intake Oral 200 ml 240 ml 240 ml Output Urine Total 150 ml 300 ml 650 ml # Voids 1 # Bowel Movements 0 3 0 Physical Exam GENERAL: Well-nourished, well-developed patient in no apparent distress. NECK: No JVD. No carotid bruit. CARDIOVASCULAR: Regular rate and rhythm. S1/S2 no murmur, rub, or gallop. RESPIRATORY: No accessory muscle use. Clear to auscultation. Breath sounds equal bilaterally. GASTROINTESTINAL: Abdomen soft, non-tender, nondistended. MUSCULOSKELETAL: Extremities without clubbing, cyanosis, or edema. (Jorge Cortés) Assessment and Plan Problem List: (1) NSTEMI (non-ST elevated myocardial infarction) (2) Cardiomyopathy Assessment and Plan Angina - s/p PCI BMS SVG-RCA on maximum antianginal agents CHF - continue diuretics as is Cardiomyopathy of uncertain etiology, EF 25% to 30%. Medically maximized, Get Life Vest rep to fit patient, 6 beat wide QRS complex tachycardia 10 pm last night His blood pressure is low, there for no addition of RAJ-I for now MR - mild (Jorge Cortés) Assessment and Plan medical mgt optimized. no further symptoms. LifeVest DC planning asa and plavix. no anticoagulant due to increased risk of bleeding postoperatively. FU with Dr. Brennan Cohen (Isai Pizarro MD) Problem Qualifiers (1) Cardiomyopathy: Qualified Code: I25.5 - Ischemic cardiomyopathy Jorge Cortés Jan 13, 2017 07:25 Isai Pizarro MD Jan 13, 2017 08:32
[2017-01-13] MEDS: CLOPIDOGREL 75 MG TAB PO SCH (08:08)
[2017-01-13] MEDS: FUROSEMIDE 20 MG TAB PO SCH (08:08)
[2017-01-13] MEDS: POTASSIUM CL 40 MEQ/30 ML LIQ UDC PO SCH (08:08)
[2017-01-13] MEDS: ASPIRIN EC 81 MG TABEC PO SCH (08:08)
[2017-01-13] MEDS: SODIUM CHLORIDE 0.9% FLUSH 5 ML FLUSH IVF SCH (08:08)
[2017-01-13] MEDS: MAGNESIUM HYDROXIDE SUSP 30 ML CUP PO SCH (08:08)
[2017-01-13] MEDS: RANOLAZINE 500 MG EXTENDED RELEASE TAB PO SCH (08:08)
[2017-01-13] MEDS: DOCUSATE SODIUM 100 MG CAP PO SCH (08:08)
[2017-01-13] MEDS: CARVEDILOL 3.125 MG TAB PO SCH (08:08)
[2017-01-13] MEDS: FERROUS SULFATE 325 MG (65 MG ELEMENTAL IRON) TAB PO SCH (08:08)
--- NOTE | 2017-01-13 08:18 | HHI.DCPOC ---
Discharge Care Plan Diagnosis: (1) Lumbar spinal stenosis (2) NSTEMI (non-ST elevated myocardial infarction) Your Health Problems Are: Difficulty with ADL Chest Pain Chronic Pain Goals to Promote Your Health * To prevent worsening of your condition and complications * To maintain your health at the optimal level Directions to Meet Your Goals Take your medications as prescribed Follow your dietary instruction Follow activity as directed Keep your appointments as scheduled Take your immunizations and boosters as scheduled If your symptoms worsen call your PCP, if no PCP go to Urgent Care Center or Emergency Room Smoking is Dangerous to Your Health. Avoid second hand smoke Call the 24-hour hour crisis hotline for domestic abuse at Elian Clemente MD Jan 13, 2017 08:18
--- NOTE | 2017-01-13 08:18 | HHI.PR ---
Subjective Remarks resting comfortably with no distress. denies chest pain. hoping that he would go to rehab today. d/w the RN and no acute issues over night. Objective Vitals Vital Signs Date Time Temp Pulse Resp B/P Pulse Ox O2 Delivery O2 Flow Rate FiO2 01/13/17 06:00 87 01/13/17 05:00 69 01/13/17 04:00 89 01/13/17 03:00 98.4 88 16 96/64 97 01/13/17 03:00 88 01/13/17 02:00 67 01/13/17 01:00 81 01/13/17 00:00 81 01/12/17 23:00 81 01/12/17 23:00 98.4 81 16 103/62 98 01/12/17 22:00 87 01/12/17 21:00 83 01/12/17 19:00 84 01/12/17 19:00 98.2 84 18 105/72 100 01/12/17 19:00 100 Nasal Cannula 4.00 01/12/17 16:00 85 01/12/17 16:00 97.6 85 17 100/57 97 01/12/17 12:00 84 01/12/17 12:00 98.4 84 18 105/55 95 01/12/17 11:15 95 Nasal Cannula 4.00 01/12/17 09:00 98 Nasal Cannula 4.00 I/O 01/12/17 01/12/17 01/12/17 01/13/17 01/13/17 01/13/17 07:00 15:00 23:00 07:00 15:00 23:00 Intake Total 200 ml 240 ml 240 ml Output Total 150 ml 300 ml 650 ml Balance 50 ml -60 ml -410 ml Intake Oral 200 ml 240 ml 240 ml Output Urine Total 150 ml 300 ml 650 ml # Voids 1 # Bowel Movements 0 3 0 Result Diagram: 01/11/17 0324 01/12/17 0521 Imaging Last Impressions Renal Ultrasound 01/09/17 0000 Signed Impressions: Service Date/Time: December 17:33 - CONCLUSION: 6.3 cm right kidney upper pole cystic complex mass require further evaluation to exclude solid mass such as renal cell tumor. Gallbladder containing sludge with thickened wall at 5 mm.. Yusuf Caro MD Chest X-Ray 01/09/17 0000 Signed Impressions: Service Date/Time: December 17:30 - CONCLUSION: Persistent interstitial prominence in the medial lower lungs, stable from prior. Gerald Murcia MD Lumbar Spine X-Ray 01/07/17 0000 Signed Impressions: Service Date/Time: Saturday, January 07, 2017 11:17 - CONCLUSION: Lateral fluoroscopic images during placement of plate and screws with intervertebral disc device at what appears to be L3-4. Luis Vicente MD Objective Remarks GENERAL: This is a well-nourished, well-developed patient, in no apparent distress. CARDIOVASCULAR: Regular rate and regular rhythm without murmurs, gallops, or rubs. RESPIRATORY: Clear to auscultation. Breath sounds equal bilaterally. No wheezes , rales, or rhonchi. GASTROINTESTINAL: Abdomen soft, non-tender, nondistended. Normal, active bowel sounds MUSCULOSKELETAL: Extremities without clubbing, cyanosis, or edema. NEURO: awake and alert- oriented to person, place and partly to time. Procedures cardiac cath. Medications and IVs Current Medications Sodium Chloride (NS 250 ml Inj) 250 ml @ As Directed STK-MED ONCE .ROUTE Last administered on 01/07/17 09:00; Start 01/07/17 at 08:01; Stop 01/07/17 at 08:02 ; Status DC Vancomycin HCl 1000 mg 1,000 mg STK-MED ONCE .ROUTE Last administered on 09:00; Start 01/07/17 at 08:01; Stop 01/07/17 at 08:02; Status DC Lactated Ringer's 1,000 ml @ 30 mls/hr Q24H IV ; Start 01/07/17 at 08:30; Stop 01/07/17 at 14:47; Status DC Sodium Chloride (NS 500 ml Inj) 500 ml @ 30 mls/hr [id number] IV ; Start 01/07/17 at 08:30; Stop 01/07/17 at 14:47; Status DC Insulin Human Regular (NovoLIN R INJ) See Protocol Table ... UNSCH X1 PRN SQ SEE PROTOCOL; Start 01/07/17 at 08:30; Stop 01/08/17 at 08:29; Status DC Metoprolol Tartrate (Lopressor) 25 mg UNSCH X1 PRN PO SEE LABEL COMMENTS; Start 01/07/17 at 08:30; Stop 01/08/17 at 05:29; Status DC Povidone Iodine 1 applic 1 applic ONCE TOP ; Start 01/07/17 at 08:30; Stop 01/10 at 08:29; Status DC Cefazolin Sodium/ Dextrose 50 ml @ 100 mls/hr WATER PLANT OPERATOR IV Last administered on 01/07/17 10:38; Start 01/07/17 at 08:30; Stop 01/10/17 at 08:29; Status DC Vancomycin HCl/ Sodium Chloride (Vancomycin Inj/ NS 250 ml Inj) 250 ml @ 250 mls/hr WATER PLANT OPERATOR IV ; Start 01/07/17 at 08:30; Stop 01/10/17 at 08:29; Status DC Gentamicin Sulfate (Gentamicin Inj) 240 mg STK-MED ONCE .ROUTE Last administered on 01/07/17 11:11; Start 01/07/17 at 08:41; Stop 01/07/17 at 08:42 ; Status DC Gelatin (Gelfoam 100 Top) 1 foam STK-MED ONCE .ROUTE ; Start 01/07/17 at 08:59; Stop 01/07/17 at 09:00; Status DC Bupivacaine HCl/ Epinephrine Bitart (Marcaine-Epi Pf 0.25% Inj) 30 ml STK-MED ONCE .ROUTE Last administered on 01/07/17 11:11; Start 01/07/17 at 08:59; Stop 01/07/17 at 09:00; Status DC Hydromorphone HCl (Dilaudid Pf Inj) 2 mg STK-MED ONCE .ROUTE ; Start 01/07/17 at 10:44; Stop 01/07/17 at 10:45; Status DC Acetaminophen (Ofirmev Inj) 1,000 mg STK-MED ONCE IV ; Start 01/07/17 at 10:45; Stop 01/07/17 at 10:46; Status DC Carvedilol (Coreg) 3.125 mg BID PO Last administered on 01/12/17 20:59; Start 01/07/17 at 21:00 Clonazepam (KlonoPIN) 0.5 mg HS PO Last administered on 01/12/17 20:59; Start 01/07/17 at 21:00 Fluticasone Propionate (Flonase Blu Spr) 1 spray BID PRN EACH NARE ALLERGIES; Start 01/07/17 at 13:45 Furosemide (Lasix) 10 mg BID PO ; Start 01/07/17 at 21:00; Stop 01/07/17 at 22: 22; Status DC Isosorbide Mononitrate (Imdur) 60 mg DAILY PO ; Start 01/08/17 at 09:00; Stop at 09:00; Status DC Levothyroxine Sodium (Synthroid) 125 mcg HS PO Last administered on 01/12/17 20:59; Start 01/07/17 at 21:00 Potassium Chloride (KCl 40 Meq/30 ml Liq) 5 meq BID PO Last administered on 20:59; Start 01/07/17 at 21:00 Pravastatin Sodium (Pravachol) 80 mg HS PO Last administered on 01/12/17 20:59 ; Start 01/07/17 at 21:00 Sertraline HCl 50 mg 50 mg HS PO Last administered on 01/12/17 20:59; Start at 21:00 Lactated Ringer's (Lr 1000 ml Inj) 1,000 ml @ 80 mls/hr [id number] IV Last administered on 01/07/17 13:41; Start 01/07/17 at 13:41; Stop 01/07/17 at 21:56 ; Status DC IV Flush (NS Flush) 2 ml UNSCH PRN IVF FLUSH AFTER USING IV ACCESS; Start 01/07 at 13:45 IV Flush (NS Flush) 2 ml BID IVF Last administered on 01/12/17 20:59; Start at 21:00 Miscellaneous Information STAT ONCE XX ; Start 01/07/17 at 13:45; Stop at 14:19; Status DC Cefazolin Sodium/ Sodium Chloride (Ancef Inj/NS Inj) 100 ml @ 200 mls/hr Q8H IV Last administered on 01/08/17 09:46; Start 01/07/17 at 18:00; Stop at 10:29; Status DC Acetaminophen/ Hydrocodone Bitart (Coplay 7.5-325 Mg) 1 tab Q4H PRN PO PAIN SCALE 1 TO 5 Last administered on 01/12/17 11:18; Start 01/07/17 at 13:45 Acetaminophen/ Hydrocodone Bitart (Coplay 7.5-325 Mg) 2 tab Q6H PRN PO PAIN SCALE 6 TO 10 Last administered on 01/13/17 04:41; Start 01/07/17 at 13:45 Ondansetron HCl (Zofran Inj) 4 mg Q6H PRN IV NAUSEA OR VOMITING; Start at 13:45 Docusate Sodium (Colace) 100 mg BID PO Last administered on 01/12/17 20:59; Start 01/08/17 at 21:00 Al Hydrox/Mg Hydrox/Simethicone (Mag-Al Plus Susp Liq) 30 ml Q6H PRN PO INDIGESTION; Start 01/07/17 at 13:45 Zolpidem Tartrate (Ambien) 5 mg HS PRN PO SLEEP; Start 01/07/17 at 21:00 Bisacodyl (Dulcolax Supp) 10 mg DAILY PRN [place] CONSTIPATION Last administered on 01/10/17 17:15; Start 01/07/17 at 13:45 Sodium Biphosphate/ Sodium Phosphate (Fleets Enema (Adult)) 133 ml DAILY PRN [place] CONSTIPATION; Start 01/07/17 at 13:45 Naloxone HCl (Narcan Inj) 0.4 mg UNSCH PRN IV RESPIRATORY RATE LESS THAN 10; Start 01/07/17 at 13:45 Morphine Sulfate (Morphine 1 Mg/ ml SENIOR TECHNICAL EDITOR) 30 mg UNSCH IV Last administered on 14:52; Start 01/07/17 at 13:45; Stop 01/08/17 at 07:55; Status DC SENIOR TECHNICAL EDITOR Dosage Infused (Pha) 1 Q8HR .XX ; Start 01/07/17 at 14:00; Stop 01/08/17 at 07:55; Status DC Morphine Sulfate (Morphine Inj) 5 mg Q4H PRN IV PUSH PAIN SCALE 7 TO 10; Start 01/07/17 at 13:45 Magnesium Hydroxide (Milk Of Magnesia Liq) 30 ml BID PO Last administered on 20:59; Start 01/07/17 at 21:00 Morphine Sulfate (Morphine 1 Mg/ ml SENIOR TECHNICAL EDITOR) 30 mg STK-MED ONCE .ROUTE ; Start 01/07 at 14:14; Stop 01/07/17 at 14:15; Status DC Fentanyl Citrate (fentaNYL INJ) 250 mcg STK-MED ONCE .ROUTE ; Start 01/07/17 at 14:30; Stop 01/07/17 at 14:31; Status DC Fentanyl Citrate (fentaNYL INJ) 100 mcg STK-MED ONCE .ROUTE ; Start 01/07/17 at 14:30; Stop 01/07/17 at 14:31; Status DC Ondansetron HCl (*ZOFRAN INJ PERIprocedural ONLY) 4 mg STK-MED ONCE .ROUTE Last administered on 01/07/17 19:05; Start 01/07/17 at 19:05; Stop 01/07/17 at 19:06; Status DC Labetalol HCl (*TRANDATE INJ PERIprocedural Use ONLY) 100 mg STK-MED ONCE .ROUTE Last administered on 01/07/17 19:09; Start 01/07/17 at 19:09; Stop at 19:10; Status DC Metoprolol Tartrate (Lopressor Inj) 5 mg STK-MED ONCE .ROUTE Last administered on 01/07/17 19:18; Start 01/07/17 at 19:18; Stop 01/07/17 at 19:19; Status DC Nitroglycerin (Nitrostat Sl (Adm Override)) 0.4 mg STK-MED ONCE SL Last administered on 01/07/17 19:35; Start 01/07/17 at 19:35; Stop 01/07/17 at 19:36 ; Status DC Nitroglycerin (Nitrostat Sl) 0.4 mg Q5M PRN SL CHEST PAIN Last administered on 01/08/17 08:37; Start 01/07/17 at 20:45 Furosemide (Lasix Inj) 40 mg STK-MED ONCE .ROUTE ; Start 01/07/17 at 21:52; Stop 01/07/17 at 21:53; Status DC Furosemide (Lasix Inj) 40 mg ONCE ONCE IV PUSH Last administered on 01/07/17 22:00; Start 01/07/17 at 22:00; Stop 01/07/17 at 22:01; Status DC Furosemide 40 mg 40 mg BID@,18 IV PUSH Last administered on 2/22/17at 08:39; Start 01/08/17 at 09:00; Stop 01/08/17 at 09:00; Status DC Heparin Sodium/ Dextrose (Heparin-D5W Inj) 250 ml @ 0 mls/hr TITRATE IV ; Start 01/08/17 at 05:30; Stop 01/08/17 at 08:50; Status DC Nitroglycerin (Nitroglycerin 2% Oint) 1 inch Q6H TOPICAL Last administered on 10:36; Start 01/08/17 at 09:00; Stop 01/11/17 at 15:21; Status DC Furosemide (Lasix) 40 mg DAILY PO Last administered on 01/11/17 10:35; Start 01/09/17 at 09:00; Stop 01/12/17 at 09:17; Status DC Metoprolol Tartrate (Lopressor) 25 mg Q12HR PO Last administered on 01/09/17 20:02; Start 01/08/17 at 09:00; Stop 01/10/17 at 08:21; Status DC Propofol (Diprivan 200 Mg/20 ml Inj) 200 mg STK-MED ONCE IV ; Start 01/07/17 at 11:50; Stop 01/08/17 at 11:51; Status DC Ephedrine Sulfate (ePHEDrine/NS 25 MG/5 ML SYR) 25 mg STK-MED ONCE IV ; Start at 11:50; Stop 01/08/17 at 11:51; Status DC Neostigmine Methylsulfate (Prostigmin Inj) 10 mg STK-MED ONCE IV PUSH ; Start at 11:50; Stop 01/08/17 at 11:51; Status DC Neostigmine Methylsulfate (Prostigmin Inj) 3 mg STK-MED ONCE IV ; Start at 11:50; Stop 01/08/17 at 11:51; Status DC Phenylephrine HCl (Neosynephrine/ NS 1000 Mcg/10ml Syr) 2,000 mcg STK-MED ONCE IV ; Start 01/07/17 at 11:50; Stop 01/08/17 at 11:51; Status DC Ondansetron HCl 4 mg 4 mg STK-MED ONCE IV PUSH ; Start 01/07/17 at 11:50; Stop 01/08/17 at 11:52; Status DC Lactated Ringer's 1,000 ml @ As Directed STK-MED ONCE IV ; Start 01/07/17 at 11 :50; Stop 01/08/17 at 11:52; Status DC Parenteral Electrolytes (Normosol R Inj) 1,000 ml @ As Directed STK-MED ONCE IV ; Start 01/07/17 at 11:50; Stop 01/08/17 at 11:52; Status DC Furosemide (Lasix Inj) 20 mg ONCE ONCE IV PUSH Last administered on 01/09/17 20:02; Start 01/09/17 at 16:45; Stop 01/09/17 at 16:50; Status DC Epinephrine HCl (EPINEPHrine (1:10,000) INJ) 1 mg STK-MED ONCE .ROUTE ; Start at 09:25; Stop 01/10/17 at 09:26; Status DC Atropine Sulfate (Atropine Inj) 1 mg STK-MED ONCE .ROUTE ; Start 01/10/17 at 09: 25; Stop 01/10/17 at 09:26; Status DC Lidocaine HCl 100 mg 100 mg STK-MED ONCE .ROUTE ; Start 01/10/17 at 09:25; Stop 01/10/17 at 09:26; Status DC Heparin Sodium/ Sodium Chloride (Heparin-NS/Pf Inj) 500 ml @ As Directed STK- MED ONCE .ROUTE ; Start 01/10/17 at 10:00; Stop 01/10/17 at 10:01; Status DC Midazolam HCl (Versed Inj) 2 mg STK-MED ONCE .ROUTE Last administered on 10:15; Start 01/10/17 at 10:03; Stop 01/10/17 at 10:04; Status DC Fentanyl Citrate (fentaNYL INJ) 100 mcg STK-MED ONCE .ROUTE Last administered on 01/10/17 10:16; Start 01/10/17 at 10:03; Stop 01/10/17 at 10:04; Status DC Heparin Sodium (Porcine) (Heparin Inj) 10,000 units STK-MED ONCE .ROUTE Last administered on 01/10/17 10:27; Start 01/10/17 at 10:03; Stop 01/10/17 at 10:04 ; Status DC Bivalirudin (Angiomax Inj) 250 mg STK-MED ONCE .ROUTE Last administered on 01/10 10:49; Start 01/10/17 at 10:47; Stop 01/10/17 at 10:48; Status DC Sterile Water (Sterile Water For Inj) 10 ml STK-MED ONCE .ROUTE ; Start at 10:48; Stop 01/10/17 at 10:49; Status DC Clopidogrel Bisulfate (Plavix) 600 mg STK-MED ONCE .ROUTE Last administered on 01/10/17 11:15; Start 01/10/17 at 10:56; Stop 01/10/17 at 10:57; Status DC Aspirin (Ecotrin Ec) 81 mg DAILY PO Last administered on 01/12/17 09:26; Start 01/10/17 at 11:15 Clopidogrel Bisulfate (Plavix) 600 mg NOW ONCE PO ; Start 01/10/17 at 11:15; Stop 01/10/17 at 11:33; Status DC Clopidogrel Bisulfate (Plavix) 75 mg DAILY PO Last administered on 01/12/17 09 :26; Start 01/11/17 at 09:00 Bacitracin (Bacitracin Oint Packet) 0.9 gm ONCE ONCE TOP Last administered on 01/10/17 16:55; Start 01/10/17 at 11:30; Stop 01/10/17 at 11:31; Status DC Lidocaine HCl (Xylocaine 2% Jelly) 1 applic UNSCH X1 PRN TOP CATHETER INSERTION ; Start 01/10/17 at 11:15; Stop 01/11/17 at 11:14; Status DC Miscellaneous Information 1 1 ONCE ONCE XX Last administered on 01/10/17 11: 15; Start 01/10/17 at 11:15; Stop 01/10/17 at 11:29; Status DC Bivalirudin/ Sodium Chloride (Angiomax Inj/NS Inj) 50 ml @ 0 mls/hr Q0M IV ; Start 01/10/17 at 11:07; Stop 01/10/17 at 15:06; Status DC Iohexol (OMNIPAQUE 350 INJ ([place])) 100 ml STK-MED ONCE OTHER ; Start at 10:18; Stop 01/10/17 at 12:34; Status DC Albuterol Sulfate 1.25 mg 1.25 mg Q4HR NEB PRN NEB SHORTNESS OF BREATH; Start 01/11/17 at 10:45 Ceftriaxone Sodium/Sodium Chloride (Rocephin Inj/NS Inj) 100 ml @ 200 mls/hr Q24H IV Last administered on 01/12/17 12:21; Start 01/11/17 at 12:00 Morphine Sulfate (Morphine Inj) 5 mg ONCE ONCE IV PUSH Last administered on 16:07; Start 01/11/17 at 16:00; Stop 01/11/17 at 16:01; Status DC Morphine Sulfate (Morphine Inj) 5 mg Q4H PRN IV PUSH CHEST PAIN; Start at 16:00 Nitroglycerin (Nitroglycerin 2% Oint) 2 inch Q6H TOPICAL Last administered on 09:25; Start 01/11/17 at 21:00; Stop 01/12/17 at 12:00; Status DC Isosorbide Mononitrate (Imdur) 60 mg BID@07,18 PO Last administered on 06:23; Start 01/12/17 at 10:00 Ranolazine (Ranexa) 500 mg Q12HR PO Last administered on 01/12/17 21:34; Start 01/12/17 at 10:00 Ferrous Sulfate (Ferrous Sulfate) 325 mg BID PO Last administered on 01/12/17 20:59; Start 01/12/17 at 09:15 Furosemide (Lasix) 20 mg DAILY PO Last administered on 01/12/17 09:31; Start 01/12/17 at 09:30 A/P Assessment and Plan A/P -Acute Non-STEMI with history of CAD s/p cardiac cath with : -Severe three-vessel [place] coronary disease. - patent two of four coronary bypass grafts -Successful percutaneous interventions saphenous vein graft to the right coronary artery. ; continue aspirin, plavix, statin and BB- echo with EF 25-30%; case management consulted for life-vest- -cardiomyopathy; continue BB and diuretic- no RAJ-I due to low-normal BP's. -lumbar spinal stenosis- s/p underwent bilateral laminectomy from L3-L4, left laminectomy L4-L5, lateral recess decompression, subtotal facets resection, posterior spinal fusion L3-L4, PLIF L3-L4, posterior segmental spinal instrumentation L3-L4. continue PT and pain control. cleared by ortho for discharge. -JAZMINE on CKD - improved -Hyperlipidemia- continue statin -A. fib Xarelto has been stop a week before the surgery off anticoagulation for now; will consider resuming anticoagulation after 4-6 weeks of aspirin and plavix- per cardiology -Left carotid endarterectomy- continue aspirin, plavix and statin. -abnormal UA- however with negative UC; will dc Abx. -COPD- with no exacerbation- neb treatment as needed. -Hypothyroidism; continue synthroid -right renal mass- f/u as outpatient. -History of prostate cancer status post radiation and seed placement Discharge Planning dc to rehab today when life vest is available. f/u; pcp, ortho and cardiology. see med list. d/w the patient and RN. time spent 32 min. Elian Clemente MD Jan 13, 2017 08:18
[2017-01-13] MEDS ORDERED: ISOS60TA PO (08:21)
[2017-01-13] MEDS ORDERED: FERR325T PO (08:21)
[2017-01-13] MEDS ORDERED: FURO20TA PO (08:21)
[2017-01-13] MEDS ORDERED: RANO500 PO (08:21)
[2017-01-13] MEDS ORDERED: CLON0.5T PO (08:21)
--- NOTE | 2017-01-13 08:26 | HHI.DS ---
Discharge Summary Admission Date Jan 07, 2017 at 06:55 Discharge Date: Jan 13, 2017 Admitting Diagnosis (1) Fluid overload ICD Code: E87.70 Diagnosis: Principal (2) Chest pain ICD Code: R07.9 Diagnosis: Principal (3) Lumbar spinal stenosis ICD Code: M48.06 Diagnosis: Principal (4) NSTEMI (non-ST elevated myocardial infarction) ICD Code: I21.4 Diagnosis: Principal Procedures cardiac cath. Brief History - From Admission History from patient, patient's nurse at the bedside, and review of medical records. I also did speak to Dr. Salcido of orthopedics on this patient as this was a stat consult. Medical team was consulted on this patient because patient was complaining of chest pain postoperatively. Patient underwent bilateral laminectomy from L3-L4, left laminectomy L4-L5, lateral recess decompression, subtotal facets resection, posterior spinal fusion L3-L4, PLIF L3-L4, posterior segmental spinal instrumentation L3-L4 today for a 2016. Postoperatively around 7 PM, patient stated that he had his dinner. He stated after the dinner, he just was not feeling well and started having nausea. This was then followed by chest pain which he described as achy, dull, midsternal with radiation to his back. Was also having associated nausea. Also reports of shortness of breath during that time. His heart rate was also tachycardic around 130s. Because of his complaints, patient was given nitroglycerin in PACU. He reports his pain level decreased from a 4-2 at that time. Patient reports that these achiness is very similar to the symptoms that he had when he had previous heart issues. Upon further questioning, patient actually stated that he has been having these chest tightness for the past few days to a week. He states that he was also having shortness of breath with minimal exertion. He denies any melena/hematochezia/hematemesis/hematuria. Denies fever. Denies burning when he urinates or pain on urination. Denies diarrhea. Denies any recent syncope or falls or dizziness. Of note is that patient received about 2500 cc of fluids in the OR and also postoperative combined. He lost about 300 cc of blood in the OR. Patient reported a prior history of CADstatus post CABG in 2009. He stated that he has had coronary artery stents a total of 15 stents between 2009 to now. His last stent was placed around April 2015 or 2015. He also reports of history of CHF. He does not remember his EF. However he does not have AICD on review of his chest x-ray. He does have a pacemaker. Reports of history of atrial fibrillation. CBC/BMP: 01/11/17 0324 01/12/17 0521 Significant Findings Laboratory Tests Test 01/11/17 01/12/17 03:24 05:21 White Blood Count 12.0 TH/MM3 (4.0-11.0) Red Blood Count 3.49 MIL/MM3 (4.50-5.90) Hemoglobin 10.5 GM/DL (13.0-17.0) Hematocrit 32.3 % (39.0-51.0) Neutrophils (%) (Auto) 80.0 % (16.0-70.0) Lymphocytes (%) (Auto) 5.7 % (9.0-44.0) Monocytes (%) (Auto) 13.3 % (0.0-8.0) Neutrophils # (Auto) 9.6 TH/MM3 (1.8-7.7) Lymphocytes # (Auto) 0.7 TH/MM3 (1.0-4.8) Monocytes # (Auto) 1.6 TH/MM3 (0-0.9) Sodium Level 135 MEQ/L (136-145) Blood Urea Nitrogen 42 MG/DL (7-18) 36 MG/DL (7-18) Estimat Glomerular Filtration 54 ML/MIN (>89) 58 ML/MIN (>89) Rate Random Glucose 112 MG/DL 111 MG/DL (74-106) (74-106) Calcium Level 8.4 MG/DL (8.5-10.1) B-Type Natriuretic Peptide 1505 PG/ML (0-100) Cholesterol Level 96 MG/DL (120-200) HDL Cholesterol 30.5 MG/DL (40.0-60.0) Carbon Dioxide Level 32.2 MEQ/L (21.0-32.0) Imaging Last Impressions Renal Ultrasound 01/09/17 0000 Signed Impressions: Service Date/Time: December 17:33 - CONCLUSION: 6.3 cm right kidney upper pole cystic complex mass require further evaluation to exclude solid mass such as renal cell tumor. Gallbladder containing sludge with thickened wall at 5 mm.. Yusuf Caro MD Chest X-Ray 01/09/17 0000 Signed Impressions: Service Date/Time: December 17:30 - CONCLUSION: Persistent interstitial prominence in the medial lower lungs, stable from prior. Gerald Murcia MD Lumbar Spine X-Ray 01/07/17 0000 Signed Impressions: Service Date/Time: Saturday, January 07, 2017 11:17 - CONCLUSION: Lateral fluoroscopic images during placement of plate and screws with intervertebral disc device at what appears to be L3-4. Luis Vicente MD PE at Discharge GENERAL: This is a well-nourished, well-developed patient, in no apparent distress. CARDIOVASCULAR: Regular rate and regular rhythm without murmurs, gallops, or rubs. RESPIRATORY: Clear to auscultation. Breath sounds equal bilaterally. No wheezes , rales, or rhonchi. GASTROINTESTINAL: Abdomen soft, non-tender, nondistended. Normal, active bowel sounds MUSCULOSKELETAL: Extremities without clubbing, cyanosis, or edema. NEURO: awake and alert- oriented to person, place and partly to time. Hospital Course -Acute Non-STEMI with history of CAD s/p cardiac cath with : -Severe three-vessel [place] coronary disease. - patent two of four coronary bypass grafts -Successful percutaneous interventions saphenous vein graft to the right coronary artery. ; continue aspirin, plavix, statin and BB- echo with EF 25-30%; case management consulted for life-vest- -cardiomyopathy; continue BB and diuretic- no RAJ-I due to low-normal BP's. -lumbar spinal stenosis- s/p underwent bilateral laminectomy from L3-L4, left laminectomy L4-L5, lateral recess decompression, subtotal facets resection, posterior spinal fusion L3-L4, PLIF L3-L4, posterior segmental spinal instrumentation L3-L4. continue PT and pain control. cleared by ortho for discharge. -JAZMINE on CKD - improved -Hyperlipidemia- continue statin -A. fib Xarelto has been stopped a week before the surgery off anticoagulation for now; will consider resuming anticoagulation after 4-6 weeks of aspirin and plavix- per cardiology -Left carotid endarterectomy- continue aspirin, plavix and statin. -abnormal UA- however with negative UC; will dc Abx. -COPD- with no exacerbation- neb treatment as needed. -Hypothyroidism; continue synthroid -right renal mass- f/u as outpatient. -History of prostate cancer status post radiation and seed placement Pt Condition on Discharge: Fair Discharge Disposition: Discharge to SNF Discharge Time: > 30 minutes Discharge Instructions DIET: Follow Instructions for: As Tolerated, No Restrictions, High Fiber Diet Activities you can perform: Weight Bearing as Dayan, See Additionl Instruction Other Activity Instructions: Out of bed with brace Follow up Referrals: Cardiology Orthopedics PCP Follow-up New Medications: 3-in-1 Bedside Toilet (3-in-1 Bedside Toilet) 1 Mis Mis 1 EA .ROUTE DIRECTED #1 EA Hydrocodone-Acetaminophen ([place]) 7.5-325 mg Tab 1 TAB PO Q4H PRN PAIN #50 Ref 0 TAB Walker with Front Wheels (Walker with Front Wheels) 1 Mis Mis 1 EA .ROUTE DIRECTED #1 Ref [address] (Aspirin EC) 81 Mg Tabdr 81 MG PO DAILY cad #30 Ref 11 TAB Clopidogrel (Plavix) 75 Mg Tab 75 MG PO DAILY cad #30 Ref 11 TAB Ferrous Sulfate (Ferrous Sulfate) 325 Mg Tab 325 MG PO BID anemia Days 30 Ref 0 TAB Furosemide (Furosemide) 20 Mg Tab 20 MG PO DAILY chf Days 30 Ref 0 TAB Isosorbide Mononitrate ER (Isosorbide Mononitrate ER) 60 Mg Tab 60 MG PO BID@07,18 cad Days 30 Ref 0 TAB Ranolazine ER 12 HR (Ranexa ER 12 HR) 500 Mg Tab 500 MG PO Q12HR cad Days 30 Ref 0 TAB Continued Medications: Acetaminophen (Tylenol Extra Strength) 500 Mg Tab 1000 MG PO DAILY PAIN Ref 0 TAB Carvedilol (Carvedilol) 3.125 Mg Tab 3.125 MG PO BID #60 Ref 0 TAB Clonazepam (Clonazepam) 0.5 Mg Tab 0.5 MG PO HS #10 Ref 0 TAB (This prescription has been renewed) Fluticasone Nasal Mio (Fluticasone Nasal Mio) 50 Mcg/Act Naspr 50 MCG EACH NARE BID 50 mcg/spray PRN ALLERGIES #1 Ref 0 BOTTLE Levothyroxine (Levothyroxine) 125 Mcg Tab 125 MCG PO HS Thyroid #30 Ref 0 TAB Potassium Chloride ER (Klor-Con 10) 10 Meq Tab 5 MEQ PO BID PATIENT TAKES 1/2 TABLET IN AM AND 1/2 TABLET IN PM Electrolyte Replacement #30 Ref 0 TAB Pravastatin (Pravastatin) 80 Mg Tab 80 MG PO HS Cholesterol Management #30 Ref 0 TAB Sertraline (Sertraline) 50 Mg Tab 50 MG PO HS #30 Ref 0 TAB Discontinued Medications: Furosemide (Lasix) 20 Mg Tab 10 MG PO BID PATIENT TAKES 1/2 HALF TABLET IN AM AND 1/2 TABLET IN PM #30 Ref 0 TAB Isosorbide Mononitrate ER (Isosorbide Mononitrate ER) 60 Mg Tab 60 MG PO DAILY Prevent Chest Pain #30 Ref 0 TAB Rivaroxaban (Xarelto) 20 Mg Tab 20 MG PO DAILY Blood Clot Prevention Ref 0 TAB Elian Clemente MD Jan 13, 2017 08:26
== END 2017-01-13 15:09 | DRG 459 ==
LOC: HSDI 01-07 06:55 → EDUNIT# 01-07 11:00 → N03A 01-07 22:51 → HCIN 01-12 18:59
PROVIDERS: ADMIT Internal Medicine; ATTEND Internal Medicine
PROC: 0ST20ZZ Resection of Lumbar Vertebral Disc, Open Approach (ICD-10-PCS; 2017-01-07)
PROC: 0SG00AJ Fusion of Lumbar Vertebral Joint with Interbody Fusion Device, Posterior Approach, Anterior Column, Open Approach (ICD-10-PCS; principal; 2017-01-07 09:40)
PROC: 02703DZ Dilation of Coronary Artery, One Artery with Intraluminal Device, Percutaneous Approach (ICD-10-PCS; 2017-01-10)
PROC: 4A023N7 Measurement of Cardiac Sampling and Pressure, Left Heart, Percutaneous Approach (ICD-10-PCS; 2017-01-10)
PROC: B2131ZZ Fluoroscopy of Multiple Coronary Artery Bypass Grafts using Low Osmolar Contrast (ICD-10-PCS; 2017-01-10)
PROC: B2111ZZ Fluoroscopy of Multiple Coronary Arteries using Low Osmolar Contrast (ICD-10-PCS; 2017-01-10)
PROC: B2151ZZ Fluoroscopy of Left Heart using Low Osmolar Contrast (ICD-10-PCS; 2017-01-10)
DX: M48.06 Spinal stenosis, lumbar region (principal); I21.4 Non-ST elevation (NSTEMI) myocardial infarction; N17.9 Acute kidney failure, unspecified; I47.2 Ventricular tachycardia; I25.110 Atherosclerotic heart disease of native coronary artery with unstable angina pectoris; I25.710 Atherosclerosis of autologous vein coronary artery bypass graft(s) with unstable angina pectoris; N39.0 Urinary tract infection, site not specified; I50.9 Heart failure, unspecified; I48.91 Unspecified atrial fibrillation; M53.2X6 Spinal instabilities, lumbar region; M51.26 Other intervertebral disc displacement, lumbar region; M54.17 Radiculopathy, lumbosacral region; R07.9 Chest pain, unspecified; R11.0 Nausea; Z95.0 Presence of cardiac pacemaker; Z95.5 Presence of coronary angioplasty implant and graft; Z85.46 Personal history of malignant neoplasm of prostate; Z92.3 Personal history of irradiation; Z87.891 Personal history of nicotine dependence; E03.9 Hypothyroidism, unspecified; E78.5 Hyperlipidemia, unspecified; N18.9 Chronic kidney disease, unspecified; I12.9 Hypertensive chronic kidney disease with stage 1 through stage 4 chronic kidney disease, or unspecified chronic kidney disease; Z79.01 Long term (current) use of anticoagulants; M19.90 Unspecified osteoarthritis, unspecified site; I34.0 Nonrheumatic mitral (valve) insufficiency; I27.2 Other secondary pulmonary hypertension; I25.82 Chronic total occlusion of coronary artery; I25.5 Ischemic cardiomyopathy; J44.9 Chronic obstructive pulmonary disease, unspecified; N28.89 Other specified disorders of kidney and ureter
CPT/HCPCS: 71010; 72100; 76000; 76775; 80048; 80061; 81001; 82550; 82552; 82570; 83880; 84156; 84300; 84484; 85014; 85018; 85025; 85610; 85730; 86850; 86900; 86901; 86920; 87086; 87205; 92937; 93005; 93306; 93454; 94150; C1713; C1725; C1769; C1876; C1887; C1893; J0131; J0171; J0461; J0583; J0690; J0696; J1170; J1580; J1644; J1940; J2250; J2270; J2370; J2405; J2710; J3010; J3370; J7050; J7120; Q9967

== ENCOUNTER → 2016-12-25 | Outpatient (CLI) | payer MEDICARE ==
[~2016-12-25] MED LIST: ACET-703 PO; ASPI81TA11 PO; CARV3.12 PO; CLON0.5T PO; FERR325T PO; FLUT50SP EACH NARE; FURO1TAB62 PO; FURO20TA PO; HYDR-3288 PO; ISOS60TA PO; LEVO125T4 PO; MISC-163; PLAV75TA29 PO; POTA-243 PO; PRAV80TA2 PO; RANO500 PO; SERT-132 PO; WALKER WHEELS/F1 MIS; XARE10TA PO; XARE20TA PO
[2016-12-25 11:23] LABS: AUTOMATED NEUTROPHIL # 5.8 TH/MM3 (1.8-7.7); BASOPHIL % 0.5 % (0.0-2.0); EOSINOPHIL # 0.1 TH/MM3 (0-0.4); EOSINOPHIL % 1.9 % (0.0-4.0); HEMATOCRIT 41.6 % (39.0-51.0); HEMO FLAGS DIFF FINAL; LYMPH % 10.7 % (9.0-44.0); LYMPHOCYTE # 0.8 TH/MM3 (1.0-4.8); MEAN CELL VOLUME 91.6 FL (80.0-100.0); MEAN CORPUSCULAR HEMOGLOBIN 30.9 PG (27.0-34.0); MEAN CORPUSCULAR HGB CONC 33.7 % (32.0-36.0); MONO % 13.2 % (0.0-8.0); NEUT % 73.7 % (16.0-70.0); PLATELET COUNT 197 TH/MM3 (150-450); RED BLOOD COUNT 4.54 MIL/MM3 (4.50-5.90); RED CELL DISTRIBUTION WIDTH 14.7 % (11.6-17.2); WHITE BLOOD COUNT 7.8 TH/MM3 (4.0-11.0)
[2016-12-25 11:24] LABS: BLOOD, URINE NEG (NEG); GLUCOSE,URINE NEG (NEG); HYALINE CAST, URINE 11 /lpf (RARE); KETONE, URINE NEG (NEG); NITRITE,URINE NEG (NEG); PH, URINE 5.5 (5.0-8.5); URINE COLOR LIGHT-YELLOW (YELLW/STRAW)
[2016-12-25 11:28] LABS: COMMENT (UR) CULT NOT INDICATED; CULTURE IF INDICATED CULT NOT INDICATED
[2016-12-25 11:32] LABS: APTT (PATIENT) 42.4 SEC (24.3-30.1); INTERNATIONAL NORMALIZED RATIO 1.6 RATIO; PROTHROMBIN TIME - PATIENT 17.5 SEC (9.8-11.6)
--- NOTE | 2016-12-25 18:07 | EKG ---
Date Performed: 12/25/2016 Time Performed: 10:05:56 PTAGE: 81 years EKG: ELECTRONIC VENTRICULAR PACEMAKER DEMAND Underlying rhythm appears to be atrial flutter Tara ve beats IRBBB PVCs vs aberrant beats ABNORMAL RHYTHM ECG NO PREVIOUS TRACING DOCTOR: Jaime Humphreys Interpretating Date/Time 12/25/2016 18:05:35
== END ==
LOC: CPRE 09:38
PROVIDERS: ATTEND Orthopaedic Surgery Orthopaedic Surgery of the Spine
DX: Z01.810 Encounter for preprocedural cardiovascular examination (principal); Z01.812 Encounter for preprocedural laboratory examination; Z79.01 Long term (current) use of anticoagulants; M48.06 Spinal stenosis, lumbar region; M96.1 Postlaminectomy syndrome, not elsewhere classified; M53.2X6 Spinal instabilities, lumbar region
CPT/HCPCS: 36415; 81001; 85025; 85610; 85730; 93005